=== PATIENT | female | born 1945 | race Caucasian/White ===

== ENCOUNTER → 2018-07-28 | Outpatient (CLI) | payer MEDICARE ==
--- NOTE | 2018-07-29 13:38 | MM ---
Reason for exam: screening (asymptomatic). Last mammogram was performed 9 years and 4 months ago. History: Patient is postmenopausal. Physical Findings: A clinical breast exam by your physician is recommended on an annual basis and results should be correlated with mammographic findings. MG 3D Screening Mammo W/Cad Bilateral CC and MLO view(s) were taken. Prior study comparison: March 27, 2009, bilateral digital screening mammogram. The breast tissue is heterogeneously dense. This may lower the sensitivity of mammography. No suspicious abnormality on the left breast. New right medial middle depth asymmetries 7cm from nipple and 8.5cm from nipple. ASSESSMENT: Incomplete: need additional imaging evaluation, BI-RAD 0 RECOMMENDATION: Special view mammogram of the right breast. If lesion persists on supplemental views, image directed ultrasound is recommended. [facility] will attempt to contact patient to return for supplemental views and ultrasound if indicated.
== END | disposition home or self-care (01) ==
LOC: RADMAMWWP 13:34
PROVIDERS: ATTEND Family Medicine
DX: Z12.31 Encounter for screening mammogram for malignant neoplasm of breast (principal)
CPT/HCPCS: 77063; 77067

== ENCOUNTER → 2018-08-03 | Outpatient (CLI) | payer MEDICARE ==
--- NOTE | 2018-08-04 09:13 | MM ---
Reason for exam: additional evaluation requested from abnormal screening. Last mammogram was performed less than 1 month ago. History: Patient is postmenopausal. Physical Findings: Nurse did not find any significant physical abnormalities on exam. MG 3D Work Up W/Cad RT Spot compression CC and LM view(s) were taken of the right breast. Prior study comparison: July 28, 2018, bilateral MG 3d screening mammo w/cad. March 27, 2009, bilateral digital screening mammogram. There is a persistent right upper inner quadrant mass 8.5-9.5cm from nipple at 1:30. The second mass appears improved on additional views. These results were verbally communicated with the patient and result sheet given to the patient on 08/03/18. ASSESSMENT: Incomplete: need additional imaging evaluation, BI-RAD 0 RECOMMENDATION: Ultrasound of the right breast.
--- NOTE | 2018-08-04 09:20 | USB ---
Reason for exam: additional evaluation requested from abnormal screening. History: Patient is postmenopausal. US Breast Workup Limited RT Right limited breast ultrasound including focal area of concern, retroareolar and axilla demonstrates a 0.4 x 0.2 x 0.4cm lesion too small to characterize at 1 o'clock, a 0.5 x 0.2 x 0.3cm mixed, probably benign lesion at 3 o'clock and a 0.6 x 0.5 x 0.5cm solid lesion at 2 o'clock corresponds to mammographic finding, suspicious, biopsy recommended, (4C Bi-Rads). These results were verbally communicated with the patient and result sheet given to the patient on 08/03/18. ASSESSMENT: Suspicious, BI-RAD 4 RECOMMENDATION: Ultrasound core biopsy of the right breast. Called Dr. Hilton with mammographic findings and has scheduled an appointment for the patient for 08/31/18 at 2:[address] Carpenter. Biopsy scheduled for 08/22/18 at 2:00. PRELIMINARY REPORT CALLED AND FAXED TO DR. CARPENTER ON 08/03/18.
== END | disposition home or self-care (01) ==
LOC: RADMAMWWP 14:11
PROVIDERS: ATTEND Family Medicine
DX: R92.8 Other abnormal and inconclusive findings on diagnostic imaging of breast (principal)
CPT/HCPCS: 77065; 76642; G0279; 77061

== ENCOUNTER → 2018-08-22 | Day surgery (SDC) | payer MEDICARE ==
[2018-08-22 13:31] VITALS: RESP 16; BMI 76.9
[2018-08-22 15:09] VITALS: BP 132/79; PULSE 71; TEMP 98.3
--- NOTE | 2018-08-22 16:29 | USB ---
EXAMINATION TYPE: US biopsy breast VAD RT, Postbiopsy MG diagnostic mammo RT wo CAD DATE OF EXAM: 08/22/2018 CLINICAL HISTORY: 73-year-old female R92.8 ABNORMAL MAMMOGRAM. TECHNIQUE: Ultrasound guided core biopsy of the right breast. COMPARISON: 08/03/2018 and 07/28/2018 FINDINGS: The procedure of ultrasound guided core biopsy was explained to the patient. Benefits, alternatives, and risks were discussed. An informed consent was then obtained. The suspicious 1 cm lesion at the 2:00 position of the right breast was identified. The patient was placed in supine positioning for imaging and for the procedure. The overlying skin was prepped and draped in usual sterile fashion. Lidocaine buffered with bicarbonate was used as anesthetic into the skin and subcutaneous tissue up to area of concern in the 2:00 right breast. Under ultrasound guidance, a 13-gauge vacuum-assisted mammotome Elite biopsy gun was used to obtain 5 core samples. Following this, a coil clip was left in lesion. The patient tolerated the procedure well without any immediate complication. The patient was kept in the radiology department for short stay after the procedure and then discharged home in stable condition. Postprocedure mammogram shows a coil clip at the site of mammographic asymmetry on the CC view. IMPRESSION: Successful, uncomplicated ultrasound guided core biopsy of very suspicious area of concern in the 2:00 right breast, full pathology results to follow. If results are benign, surgical excision may need to be considered. Pathology Results: Malignant RIGHT BREAST, NEEDLE CORE BIOPSY: Infiltrating classic type lobular carcinoma. Appropriately controlled immunohistochemical studies for E-Cadherin is negative in tumor cells with cytokeratin 7 showing good reactivity with tumor cells. ADDENDUM REPORT RIGHT BREAST NEEDLE CORE BIOPSY: Infiltrating classic type lobular carcinoma. Recommendation Surgical consult of the right breast. Definitive surgical therapy. Ammendable to needle localization. MTDD
== END ==
LOC: RADUSWWP 13:00
PROVIDERS: ATTEND Surgery
DX: C50.211 Malignant neoplasm of upper-inner quadrant of right female breast (principal); Z17.0 Estrogen receptor positive status [ER+]
CPT/HCPCS: 88305; 88342; 88341; 77065; 19083; A4648; J2001

== ENCOUNTER → 2018-09-07 | Outpatient (CLI) | payer MEDICARE ==
--- NOTE | 2018-09-08 20:20 | BMR ---
EXAMINATION TYPE: MR breast BILAT wo/w con DATE OF EXAM: 09/07/2018 COMPARISON: Right breast mammogram dated 08/03/2018 and right breast ultrasound dated 08/03/2018. Right breast ultrasound-guided biopsy dated 08/22/2018. Screening mammogram dated 07/28/2018. HISTORY: Abnormal U/S shows lesions at 1,2, and 3 O'clock of rt breast TECHNIQUE: A series of fat and water weighted images in the long and short axis views of both breasts are obtained in conjunction with dynamic contrast MRI with subtraction technique. The patient was i njected with 7.5 mL intravenous Gadavist gadolinium contrast. Three-dimensional and additional post processing imaging is created on independent workstation and reviewed during official interpretation of this study. The exam is suboptimal given patient positioning. Prior ultrasound of 08/03/2018: At the 1:00 position on the prior ultrasound there was a 0.4 x 0.2 x 0 .4 cm lesion that is too small to accurately characterize. At the 3:00 lesion there is a mixed, probably benign 0.5 x 0.2 x 0.3 cm mass. At the 2:00 location corresponding to the mammographic finding there was a 0.5 x 0.5 x 0.6 cm mass fo r which biopsy was performed. This resulted in a malignant pathology of infiltrating classic type lob ular carcinoma. FINDINGS: The breasts are composed of heterogenous fibroglandular tissue. There is mild symmetric chava kground parenchymal enhancement. There is a biopsy marker of the right breast at the 2:00 position denoting the biopsy-proven lobular carcinoma. On subtraction imaging there is focal linear nonmass enhancement associated with this biop sy marker spanning a total distance of 3.3 cm. This is seen on an oblique angle anterior laterally bu t contiguous with the biopsy marker. No suspicious mass or nodule mass enhancement are seen at the 1:00 or 3:00 positions at the site of s ubcentimeter probably benign masses seen on the prior ultrasound. These may have represented prominen t fibroglandular tissue or artifact on the prior exam. On the left there is clumped linear nonmass enhancement at the 3:00 position on postcontrast series 1 101 image 291 spanning a distance of 3.2 cm. At the posterior margin of this there is an 8mm mass. Th jose carlos all demonstrate type I kinetics however the biopsy-proven lobular carcinoma within the right devora st also demonstrates type I kinetics. No suspicious axillary, internal mammary, or intramammary adenopathy within either breast. IMPRESSION: 1. Nonmass enhancement is associated with the biopsy-proven lobular carcinoma of the right breast at the 2:00 position. This spans a total distance of 3.2 cm. 2. Linear clumped nonmass enhancement of the left breast at the 3:00 position is seen spanning a tota l distance of 3.2 cm. MRI guided biopsy would be recommended if breast conservation therapy is desire d. 3. No suspicious mass nor suspicious enhancement with the subcentimeter lesion seen on the prior ultr asound, possibly artifact on the prior ultrasound or prominent fibroglandular tissue. 4. No suspicious axillary, internal mammary or intramammary adenopathy in either breast.
== END | disposition home or self-care (01) ==
LOC: RADMRIMAIN 20:42
PROVIDERS: ATTEND Surgery
DX: C50.211 Malignant neoplasm of upper-inner quadrant of right female breast (principal); N63.20 Unspecified lump in the left breast, unspecified quadrant
CPT/HCPCS: C8937; C8908; A9585; 77049

== ENCOUNTER → 2018-09-27 | Outpatient (CLI) | payer MEDICARE ==
--- NOTE | 2018-09-27 10:52 | USB ---
Reason for exam: additional evaluation requested from prior study. History: Patient is postmenopausal and has history of breast cancer at age 73. Malignant US biopsy breast VAD RT of the right breast, August 22, 2018. Physical Findings: Nurse did not find any significant physical abnormalities on exam. US Breast Limited LT Left limited breast ultrasound including focal area of concern, retroareolar and axilla demonstrates no cystic or solid lesion seen. 3 o'clock lesion not seen that correlates with recent breast MRI. These results were verbally communicated with the patient and result sheet given to the patient on 09/27/18. ASSESSMENT: Suspicious, BI-RAD 4 RECOMMENDATION: MRI-guided biopsy of the left breast. Biopsy scheduled for 10/07/18. PRELIMINARY REPORT CALLED AND FAXED TO DR. LIMON ON 09/27/18. [facility]
== END | disposition home or self-care (01) ==
LOC: RADUSWWP 09:19
PROVIDERS: ATTEND Surgery
DX: C50.911 Malignant neoplasm of unspecified site of right female breast (principal)

== ENCOUNTER → 2018-10-10 | Day surgery (SDC) | payer MEDICARE ==
--- NOTE | 2018-10-10 11:15 | BMR ---
EXAMINATION TYPE: MR breast biopsy w/vad LEFT, MG diagnostic mammo LT w CAD DATE OF EXAM: 10/10/2018 COMPARISON: 09/07/2018 HISTORY: Nonmass enhancement on the left breast with history of recently diagnosed infiltrating lobular carcinoma within the right breast. Left breast MRI guided biopsy recommended. TECHNIQUE: Multiplanar, multisequence images of the breasts is performed for left breast biopsy without and with IV contrast, utilizing 8.5 mL intravenous Gadavist . PREPROCEDURAL CONSULTATION: Following a discussion of the risks, benefits, and alternatives of the procedure, informed consent was obtained. The patient identified herself by both her name and date and indicated that the right breast was the area of concern. Prior to the procedure, an audible timeout was done to verify patient identification, site and type of procedure. The left breast was marked prior to the procedure. PROCEDURE: The patient was placed on the MRI scanner within the breast coil with mild compression on the left breast. T1 weighted axial images were obtained before and after administration of IV contrast. The enhancing area of concern was identified. The [employer] software program was used to localize the enhancing area of concern. The patient was taken out of the scanner and the skin was sterilely prepped. 10 mL of buffered 1% lidocaine was injected subcutaneously and then into the deeper tissues. Subsequently, a trochar and sheath were advanced into the breast at the designated depth. The trochar was removed and a plastic stylet was placed into the sheath and the patient was placed back into the scanner. T1 weighted images were again obtained. The stylet tip was in good position in relation to the area of concern. The stylet was removed and the 9-guage vacuum-assisted needle was placed into the sheath. 10 cc of lidocaine with epinephrine was injected at the site of biopsy. A tissue core specimens were obtained. The biopsy needle was removed and 2 metallic markers were placed into the biopsy site. T1 weighted fat saturation images were then obtained demonstrating satisfactory location of one of the biopsy markers with migration of the second biopsy marker. The patient was then taken out of the scanner and hemostasis was achieved with manual compression. A sterile dressing was applied at the site of biopsy. The patient tolerated the procedure without difficulty. Pathology specimens were labeled with patient identifiers and then sent to the pathology department. A post biopsy mammogram demonstrates migration of one of the markers towards the skin surface on the CC view bilaterally probable 1 cm migration laterally of the second biopsy marker marked on the images. The patient experienced no complications during the procedure within the expected small postprocedural hematoma at the site of biopsy. Home-going/follow-up instructions were reviewed with the patient before she left the department. IMPRESSION: Status post MRI guided vacuum-assisted core needle biopsy of left breast mass followed by placement of tissue markers. Pathology and an addendum are pending. Pathology Results: High Risk LEFT BREAST, NEEDLE CORE BIOPSIES: Complex sclerosing lesion with features of sclerosing adenosis, papillomatous usual ductal hyperplasia and fibrocystic changes. Recommendation Surgical consult of the left breast. Excision on left treatment on the right for known breast cancer. MTDD
[2018-10-10 11:16] VITALS: BP 150/85; PULSE 76; RESP 16; TEMP 97.6
== END ==
LOC: RADMRIMAIN 07:55
PROVIDERS: ATTEND Surgery
DX: C50.911 Malignant neoplasm of unspecified site of right female breast (principal); N60.22 Fibroadenosis of left breast; N60.92 Unspecified benign mammary dysplasia of left breast
CPT/HCPCS: 88305; 77065; 19085; C8937; A4648; A9585

== ENCOUNTER 2018-10-24 06:49 | Day surgery (SDC) | payer MEDICARE ==
--- NOTE | 2018-10-23 12:57 | P.GSHP ---
History of Present Illness H&P Date: 10/23/18 Chief Complaint: Right breast cancer, abnormal left mammogram 73-year-old female known to our service. Seen in late August. Had a screening mammogram in mid July. Last mammogram 9 years ago. No family history of breast cancer. Patient without symptoms. Mammogram showed 2 areas of asymmetry right breast. Diagnostic mammogram showed a single suspicious area. Ultrasound showed a 6 mm solid lesion 2:00 right breast. Ultrasound core biopsy performed and biopsies show invasive lobular cancer ER/[place] positive HER-2/lavinia negative. Given the lobular type of adenocarcinoma an MRI was obtained. MRI showed the right-sided breast cancer to measure approximately 3.2 cm. Left breast showed a similar area at the 3 o'clock position. No adenopathy bilaterally. A second look ultrasound was obtained which was negative. MRI guided biopsy was then obtained which showed a complex sclerosing lesion left breast. Past Medical History Past Medical History: Cancer, Eye Disorder, Supraventricular Tachycardia (SVT) Additional Past Medical History / Comment(s): CURRENT: Right breast invasive lobular carcinoma; Left breast BX UNDER MRI. MACULAR degeneration History of Any Multi-Drug Resistant Organisms: None Reported Past Surgical History: Tubal Ligation Additional Past Surgical History / Comment(s): breast biopsy right breast +ve for CA,BREAST CYST ASP-BENIGN UNSURE WHICH BREAST, Past Anesthesia/Blood Transfusion Reactions: No Reported Reaction Past Psychological History: No Psychological Hx Reported Smoking Status: Never smoker Past Alcohol Use History: Occasional Past Drug Use History: None Reported - Past Family History Mother Family Medical History: No Reported History Medications and Allergies Home Medications Medication Instructions Recorded Confirmed Type Diltiazem Cd [Cardizem CD] 120 mg PO QAM 08/11/18 10/21/18 History Multivitamins, Thera [Multivitamin 1 tab PO DAILY 08/11/18 10/21/18 History (formulary)] C,E,Zinc,Copper 11/Ajcmc9a/Lut 1 each PO DAILY 09/29/18 10/21/18 History [Ocuvite Adult 50 Plus Softgel] Allergies Allergy/AdvReac Type Severity Reaction Status Date / Time No Known Allergies Allergy Verified 10/21/18 08:23 Surgical - Exam Physical exam: General: Well-developed, well-nourished HEENT: Normocephalic, sclerae nonicteric Right breast: Recent biopsy site noted, no palpable mass, no adenopathy Left breast: No masses, no adenopathy Abdomen: Nontender, nondistended Extremities: No edema Neuro: Alert and oriented Assessment and Plan (1) Breast cancer, right Narrative/Plan: 73-year-old female with invasive lobular carcinoma right breast and recent abnormal left mammogram. Clinical scenario discussed with the patient on multiple occasions by phone. At this time she and I decided to proceed with right breast lumpectomy with needle localization and sentinel lymph node biopsy with possible axillary node dissection. Simultaneously Will proceed with left breast wire localization biopsy to rule out adjacent malignancy. Risks of bleeding, infection, seroma, nerve injury, scarring, dimpling, chronic pain, possible need for additional procedures reviewed. She understands and wishes to proceed. Status: Acute Code(s): C50.911 - MALIGNANT NEOPLASM OF UNSP SITE OF RIGHT FEMALE BREAST SNOMED Code(s): 499759774
[~2018-10-24 06:49] MED LIST: DEXAMETHASONE SOD PHOSPHATE 10 MG/ML 1 ML VIAL IV ONE; LACTATED RINGERS 1,000 ML IV SCH; LIDOCAINE 1% 20 ML VIAL (10MG/ML) FOR IV START INTRADERMA PRN; ONDANSETRON 4 MG/2 ML VIAL IVP ONE; Pre Op ABX Message 1 EACH MISC MISCELLANE ONE
[2018-10-24] MEDS ORDERED: LIDOCAINE 1% INJ 10MG/ML (20 ML MDV) SQ ONE ×2 (08:52→09:07)
[2018-10-24] MEDS ORDERED: ceFAZolin 1,000 MG VIAL ONE (10:22)
[2018-10-24] MEDS ORDERED: ePHEDrine SULFATE/0.9% NACL/PF 50 MG/5 ML SYRINGE IV ONE (10:22)
[2018-10-24] MEDS ORDERED: fentaNYL (PF) 50 MCG/ML 2 ML AMP ONE (10:22)
[2018-10-24] MEDS ORDERED: LIDOCAINE 1% INJ 10MG/ML (20 ML MDV) ONE (10:22)
[2018-10-24] MEDS ORDERED: MIDAZOLAM 2 MG/2 ML VIAL ONE (10:22)
[2018-10-24] MEDS ORDERED: PROPOFOL 10 MG/ML 20 ML VIAL IV ONE (10:22)
[2018-10-24] MEDS ORDERED: SUCCINYLCHOLINE CHLORIDE 100 MG/5 ML SYR IV ONE (10:22)
[2018-10-24] MEDS ORDERED: SODIUM CHLORIDE 0.9% 50 ML with ceFAZolin 2,000 MG IV ONE ×2 (10:37)
[2018-10-24] MEDS ORDERED: METHYLENE BLUE 10 MG/ML (10 ML VIAL) MISCELLANE ONE ×2 (10:56)
[2018-10-24] MEDS ORDERED: BUPIVACAINE (PF) 0.25% 30 ML VIAL SQ ONE (10:56)
[2018-10-24] MEDS ORDERED: LACTATED RINGERS 1,000 ML IV ONE (10:59)
--- NOTE | 2018-10-24 11:10 | NM ---
EXAMINATION TYPE: NM sentinel node injection DATE OF EXAM: 10/24/2018 COMPARISON: 10/10/2018 HISTORY: Right breast cancer TECHNIQUE AND FINDINGS: The procedure of sentinel lymph node injection was explained to the patient. The benefits, alternatives, and risks were discussed. An informed consent was then obtained. Overlying skin is cleaned with sterile alcohol. Following this, 542 uCi Tc99m Tilmanocept was inject ed in the upper outer aspect of the right nipple intradermally. The patient tolerated the procedure well without any immediate complication. The patient was kept in the radiology department for short stay after the procedure and then taken to surgery for surgical p rocedure what is presumed intraoperative gamma probe will be used for sentinel lymph node detection. IMPRESSION: Right breast radiotracer injection for sentinel node localization as above.
[2018-10-24 12:45] VITALS: TEMP 97.4
[2018-10-24] MEDS ORDERED: HYDROcodone/APAP 5-325MG 1 EACH TAB PO PRN (12:51)
[2018-10-24] MEDS ORDERED: NALOXONE 0.4 MG/ML 1 ML VIAL IV PRN (12:51)
--- NOTE | 2018-10-24 12:57 | P.OP ---
Date of Procedure: 10/24/18 Procedure(s) Performed: REOPERATIVE DIAGNOSIS: Right breast cancer POSTOPERATIVE DIAGNOSIS: Same PROCEDURE: Right Breast wire localization lumpectomy with sentinel lymph node biopsy, left breast wire localization biopsy SURGEON: Jayden EBL: Minimal ANESTHESIA: General COMPLICATIONS: None OPERATIVE PROCEDURE: Patient was placed on the operating room table in the supine position. 2 mL of methylene blue was injected into the right subareolar space. The breast was then massaged for 5 minutes. Both breasts were prepped and draped in usual sterile fashion. The left side was first addressed. The patient had 2 wires entering the left breast laterally. A curvilinear incision was made. Dissection through the subcutaneous tissues took place excising the tissue around both wires and staying anterior and medial to the deeper wire. Both clips were present within the specimen. Site was inspected. No bleeding was seen. The subcutaneous tissues were closed using 3-0 Vicryl sutures. The skin was then closed using a running 4-0 Monocryl stitch. Later Steri-Strips and sterile dressings were applied. At that time the right axilla was addressed. The hot spot in the right axilla was identified. A small curvilinear incision was made using the scalpel. Dissection down through the subcutaneous tissues took place using electrocautery. Using the neoprobe I identified a total of 3 sentinel lymph nodes. One of these was blue in color. These were clinically negative. No frozen section took place. The subcutaneous tissues were closed using 3-0 Vicryl sutures. The skin was closed using 4-0 Monocryl sutures. The wire entrance site was then addressed. This was present at the 3:00 location. A horizontal incision was made adjacent to the wire entrance site. I followed the wire down into the breast tissue. An adequate lumpectomy specimen then took place around the wire. Margins of 1.5-2 cm worth attempted to be achieved. Palpation of the specimen was benign. The clip was confirmed to be within the lumpectomy specimen by radiology. The subcutaneous tissues were closed using 3-0 Vicryl sutures. The skin was closed using a running 4-0 Monocryl stitch. Steri-Strips and sterile dressings were then applied. DISPOSITION: Stable to recovery room
[2018-10-24] MEDS: HYDROmorphone 0.5 MG/0.5 ML SYRINGE IVP PRN ×4 (13:05→13:32)
--- NOTE | 2018-10-24 13:50 | MM ---
EXAMINATION TYPE: MG pre op needle loc DATE OF EXAM: 10/24/2018 COMPARISON: 10/10/2018 CLINICAL HISTORY: Bilateral needle localization requested TECHNIQUE: Needle localization with wire placement and surgical excision of area of concern in the bilateral breast. FINDINGS: The procedure of needle localization with wire placement and than surgical excision was explained to the patient. Benefits, alternatives, and risks were discussed. An informed consent was then obtained. The shortest pathway for procedure was chosen. Shortest pathway was chosen. The overlying skin was prepped and draped in usual sterile fashion. Lidocaine buffered with bicarbonate was used as anesthetic into the skin and subcutaneous tissue up to the level of area of concern. A 5 cm cm needle was used on the right. There is a 5 cm needle used on the left for the first clip and a 7 cm needle use for the second clip. It was placed via a lateral approach bilaterally under mammographic guidance. Subsequent 90 degrees mammogram show the needle to be in satisfactory position relative to the targeted area. At this point, wire was placed and the needle was withdrawn. The wire was fixed to patient's skin. Images were marked for surgeon. The patient tolerated the procedure well without any immediate complication. The patient was kept in the radiology department for short stay after the procedure and then taken to surgery for surgical excision. Surgical clips and wire are identified in specimen mammogram. The patient was kept in hospital for short stay after the procedure and then discharged home in stable condition. IMPRESSION: Successful, uncomplicated needle localization with wire placement and surgical excision of surgical clip in the bilateral breast, full pathology results to follow. Pathology Results: Malignant A. LEFT BREAST, NEEDLE LOCALIZATION EXCISION: Intraductal papilloma, margins negative. Focal atypical lobular hyperplasia (ALH). Fibrocystic changes including cysts, fibrosis, apocrine metaplasia, sclerosing adenosis and calcifications. Previous biopsy site. B. SENTINEL LYMPH NODES, RIGHT BREAST: Four lymph nodes negative for metastasis. CK7 and JIM immunoperoxidase stains are confirmatory (controls appropriate). C. RIGHT BREAST, LUMPECTOMY: Invasive lobular carcinoma adjacent to previous biopsy site, margins negative for malignancy. Tumor is focally less than 1 mm from the blue inked/anterior margin. See Surgical Pathology Cancer Case Summary and Comment. Recommendation Surgical consult of both breasts. MARY
[2018-10-24 14:09] VITALS: RESP 16
[2018-10-24 14:33] VITALS: BP 152/80; PULSE 82
[2018-10-24] MEDS ORDERED: HYDROcodone/APAP 5-325MG 1 EACH TAB PO ONE (14:37)
== END 2018-10-24 15:22 | disposition home or self-care (01) ==
LOC: OR 06:49
PROVIDERS: ATTEND Surgery
DX: C50.211 Malignant neoplasm of upper-inner quadrant of right female breast (principal); Z17.0 Estrogen receptor positive status [ER+]; N60.12 Diffuse cystic mastopathy of left breast; N60.22 Fibroadenosis of left breast; D24.2 Benign neoplasm of left breast
CPT/HCPCS: 19301; 38500; 88342; 88307; 88341; 76098 ×2; 19281; 19282; 38792; A9520; J2250; J0690; J2001; Q9968; J3010; J0330; J2704; J1170

== ENCOUNTER → 2019-01-10 | Outpatient (CLI) | payer MEDICARE ==
--- NOTE | 2019-01-10 18:08 | BD ---
EXAMINATION TYPE: Axial Bone Density DATE OF EXAM: 01/10/2019 COMPARISON: 10/05/2007 CLINICAL HISTORY: Height: 63 IN Weight: 186 LBS RISK FACTORS HISTORY OF: Active: YES Postmenopausal woman: AGE 51 MEDICATIONS: Osteoporosis Medications: NOT NOW Which medication: Fosamax How Long: TOOK FOR 2 YEARS Additional Medications: CENTRUM MULTI VIT, SVT MEDS, Additional History: BREAST CANCER WITH RADIATION AGE 73 EXAM MEASUREMENTS: Bone mineral densitometry was performed using the [employer]. Bone mineral density as measured about the Lumbar spine is: ----- L1-L4(G/cm2): 1.201 T Score Values are as follows: ----- L2: -0.3 ----- L3: 0.6 ----- L4: 0.9 ----- L1-L4: 0.2 Bone mineral density has: Increased 12.9% since study of: 10/05/2007 Bone mineral density about the R hip (g/cm2): 0.727 Bone mineral density about the L hip (g/cm2): 0.744 T Score values are as follows: -----R Neck: -2.2 -----L Neck: -2.1 -----R Total: -1.4 -----L Total: -1.2 Bone mineral density has: Decreased -1.6% since study of: 10/05/2007 IMPRESSION: Osteopenia (T Score between -2.5 and -1). There is slightly increased risk of fracture and the patient may be considered for treatment. Re-Screen 2-5 years. NOTE: T-SCORE=SD OF THE YOUNG ADULT MEAN.
== END ==
LOC: RADBDWWP 09:52
PROVIDERS: ATTEND Internal Medicine Hematology & Oncology
DX: M85.80 Other specified disorders of bone density and structure, unspecified site (principal); C50.211 Malignant neoplasm of upper-inner quadrant of right female breast; N95.1 Menopausal and female climacteric states; Z79.890 Hormone replacement therapy
CPT/HCPCS: 77080

== ENCOUNTER → 2019-08-02 | Outpatient (CLI) | payer MEDICARE ==
--- NOTE | 2019-08-09 09:14 | MM ---
Reason for exam: follow-up at short interval from prior study. Last mammogram was performed 10 months ago. History: Patient is postmenopausal, has history of breast cancer at age 73, and has history of high-risk lesion on a previous biopsy at age 73. Malignant MG pre op loc each addl RT of the right breast, October 24, 2018. High risk MG pre op needle loc LT of the left breast, October 24, 2018. Lumpectomy of the right breast, October 24, 2018. High risk MR breast biopsy w/vad LEFT of the left breast, October 10, 2018. Malignant US biopsy breast VAD RT of the right breast, August 22, 2018. Physical Findings: Nurse did not find any significant physical abnormalities on exam. MG 3D Diag Mammo W/Cad DESIREE Bilateral CC and MLO view(s) were taken. XCCL view(s) were taken of the left breast. Prior study comparison: October 10, 2018, left breast MG diagnostic mammo LT w CAD. August 22, 2018, right breast MG diagnostic mammo RT wo CAD. The breast tissue is heterogeneously dense. This may lower the sensitivity of mammography. Diffuse skin and trabecular thickening on the right. Post excisional changes on the left. Scattered benign round and punctate calcification on the right. 6 month follow up right to assess evolving post therapy change. These results were verbally communicated with the patient and result sheet given to the patient on 08/02/19. ASSESSMENT: Probably benign, BI-RAD 3 RECOMMENDATION: Follow-up diagnostic mammogram of the right breast in 6 months.
== END | disposition home or self-care (01) ==
LOC: RADMAMWWP 09:38
PROVIDERS: ATTEND Radiology Radiation Oncology
DX: C50.211 Malignant neoplasm of upper-inner quadrant of right female breast (principal); C50.411 Malignant neoplasm of upper-outer quadrant of right female breast; Z92.3 Personal history of irradiation; Z98.890 Other specified postprocedural states
CPT/HCPCS: 77066; G0279; 77062

== ENCOUNTER → 2020-02-02 | Outpatient (CLI) | payer MEDICARE ==
--- NOTE | 2020-02-06 11:15 | MM ---
Reason for exam: follow-up at short interval from prior study. Last mammogram was performed 6 months ago. History: Patient is postmenopausal, has history of breast cancer at age 73, and has history of high-risk lesion on a previous biopsy at age 73. Malignant MG pre op loc each addl RT of the right breast, October 24, 2018. High risk MG pre op needle loc LT of the left breast, October 24, 2018. Lumpectomy of the right breast, October 24, 2018. High risk MR breast biopsy w/vad LEFT of the left breast, October 10, 2018. Malignant US biopsy breast VAD RT of the right breast, August 22, 2018. Took hormonal contraceptives for 5 years. Physical Findings: Nurse did not find any significant physical abnormalities on exam. MG 3D Diag Mammo W/Cad RT CC and MLO view(s) were taken of the right breast. Prior study comparison: August 02, 2019, bilateral MG 3d diag mammo w/cad DESIREE. October 10, 2018, left breast MG diagnostic mammo LT w CAD. The breast tissue is heterogeneously dense. This may lower the sensitivity of mammography. Post surgical and post therapy change right breast. No significant new findings when compared with previous films. These results were verbally communicated with the patient and result sheet given to the patient on 02/02/20. ASSESSMENT: Benign, BI-RAD 2 RECOMMENDATION: Follow-up diagnostic mammogram of both breasts in 6 months. Back on schedule.
== END | disposition home or self-care (01) ==
LOC: RADMAMWWP 10:53
PROVIDERS: ATTEND Radiology Radiation Oncology
DX: C50.211 Malignant neoplasm of upper-inner quadrant of right female breast (principal); C50.411 Malignant neoplasm of upper-outer quadrant of right female breast; Z92.3 Personal history of irradiation; Z98.890 Other specified postprocedural states
CPT/HCPCS: 77065; G0279; 77061

== ENCOUNTER 2020-07-06 15:28 | Inpatient (IN) | payer MEDICARE ==
--- NOTE | 2020-07-06 16:11 | ED ---
SOB HPI - General Chief Complaint: Shortness of Breath Stated Complaint: COVID+ Time Seen by Provider: 07/06/20 15:50 Source: patient Mode of arrival: ambulatory Limitations: no limitations - History of Present Illness Initial Comments: Alejandrina is a 74-year-old female who presents to the emergency department today for evaluation of persistent shortness of breath, body aches, malaise which is progressively worsened over the past 10 days. Patient was diagnosed with COVID 1910 days ago. Despite taking steroids and antibiotics at home she has had no improvement in her symptoms continues to feel worse. Patient reports she so weak she can't take care of herself at home doesn't feel safe at home. - Related Data Home Medications Medication Instructions Recorded Confirmed Diltiazem Cd [Cardizem CD] 120 mg PO QAM 08/11/18 10/24/18 Multivitamins, Thera [Multivitamin 1 tab PO DAILY 08/11/18 10/24/18 (formulary)] C,E,Zinc,Copper 11/Gignz7w/Lut 1 each PO DAILY 09/29/18 10/24/18 [Ocuvite Adult 50 Plus Softgel] Previous Rx's Medication Instructions Recorded Hydrocodone/Acetaminophen [[place] 1 tab PO Q6HR PRN 3 Days #10 tab 10/24/18 5-325] Allergies Allergy/AdvReac Type Severity Reaction Status Date / Time No Known Allergies Allergy Verified 07/06/20 15:33 Review of Systems ROS Statement: Those systems with pertinent positive or pertinent negative responses have been documented in the HPI. ROS Other: All systems not noted in ROS Statement are negative. Past Medical History Past Medical History: Cancer, Eye Disorder, Supraventricular Tachycardia (SVT) Additional Past Medical History / Comment(s): CURRENT: Right breast invasive lobular carcinoma; Left breast BX UNDER MRI. MACULAR degeneration History of Any Multi-Drug Resistant Organisms: None Reported Past Surgical History: Tubal Ligation Additional Past Surgical History / Comment(s): breast biopsy right breast +ve for CA,BREAST CYST ASP-BENIGN UNSURE WHICH BREAST, Past Anesthesia/Blood Transfusion Reactions: No Reported Reaction Past Psychological History: No Psychological Hx Reported Smoking Status: Never smoker Past Alcohol Use History: Rare Past Drug Use History: None Reported - Past Family History Mother Family Medical History: No Reported History General Exam - General Exam Comments Initial Comments: Physical Exam GENERAL: Ill appearing but nontoxic Appears dehydrated HENT: Normocephalic, Atraumatic. EYES: PERRL, EOMI PULMONARY: Tachypnea CARDIOVASCULAR: RRR Warm and well perfused extremities ABDOMEN: Non-distended SKIN: No rashes or bruising : Deferred NEUROLOGIC: Alert and oriented Normal speech Normal gait MUSCULOSKELETAL: Moving all extremities with no apparent injury PSYCHIATRIC: No SI/HI Limitations: no limitations Course Vital Signs 07/06/20 07/06/20 07/06/20 15:29 15:53 16:30 Temperature 97.9 F 97.9 F Pulse Rate 88 82 Respiratory 18 18 18 Rate Blood Pressure 109/59 110/62 O2 Sat by Pulse 91 L 93 L Oximetry 07/06/20 19:19 Temperature 97.9 F Pulse Rate 80 Respiratory 18 Rate Blood Pressure 130/72 O2 Sat by Pulse 94 L Oximetry Medical Decision Making - Medical Decision Making The patient was seen and evaluated, history is obtained from patient Patient: +10 days ago, worsening symptoms today Upon arrival patient is hypoxic to 87% on room air Patient was placed on supplemental oxygen, labs were obtained Given patient's oxygen requirements she is not a candidate for monoclonal antibody treatment or discharge home Vision care was discussed with Dr. Walker who accepts admission for COVID 19, hypoxia - Lab Data Result diagrams: 07/06/20 16:19 07/06/20 16:19 Lab Results 07/06/20 07/06/20 07/06/20 Range/Units 16:19 16:19 16:19 WBC 4.3 (3.8-10.6) k/uL RBC 5.43 H (3.80-5.40) m/uL Hgb 16.4 H (11.4-16.0) gm/dL Hct 47.9 H (34.0-46.0) % MCV 88.1 (80.0-100.0) fL MCH 30.2 (25.0-35.0) pg MCHC 34.3 (31.0-37.0) g/dL RDW 12.9 (11.5-15.5) % Plt Count 166 (150-450) k/uL MPV 8.0 Neutrophils % 82 % Lymphocytes % 9 % Monocytes % 7 % Eosinophils % 0 % Basophils % 1 % Neutrophils # 3.6 (1.3-7.7) k/uL Lymphocytes # 0.4 L (1.0-4.8) k/uL Monocytes # 0.3 (0-1.0) k/uL Eosinophils # 0.0 (0-0.7) k/uL Basophils # 0.0 (0-0.2) k/uL PT 9.7 (9.0-12.0) sec INR 0.9 (<1.2) APTT 22.3 (22.0-30.0) sec D-Dimer 0.52 (<0.60) mg/L FEU Sodium 133 L (137-145) mmol/L Potassium 4.6 (3.5-5.1) mmol/L Chloride 99 (98-107) mmol/L Carbon Dioxide 26 (22-30) mmol/L Anion Gap 8 mmol/L BUN 16 (7-17) mg/dL Creatinine 0.81 (0.52-1.04) mg/dL Est GFR (CKD-EPI)AfAm 84 (>60 ml/min/1.73 sqM) Est GFR (CKD-EPI)NonAf 73 (>60 ml/min/1.73 sqM) Glucose 122 H (74-99) mg/dL Plasma Lactic Acid Shayne (0.7-2.0) mmol/L Calcium 8.4 (8.4-10.2) mg/dL Magnesium 2.4 H (1.6-2.3) mg/dL Total Bilirubin 0.4 (0.2-1.3) mg/dL AST 50 H (14-36) U/L ALT 34 (4-34) U/L Alkaline Phosphatase 96 (38-126) U/L Creatine Kinase 166 H (30-135) U/L C-Reactive Protein 70.1 H (<10.0) mg/L Total Protein 6.4 (6.3-8.2) g/dL Albumin 3.8 (3.5-5.0) g/dL 07/06/20 Range/Units 16:19 WBC (3.8-10.6) k/uL RBC (3.80-5.40) m/uL Hgb (11.4-16.0) gm/dL Hct (34.0-46.0) % MCV (80.0-100.0) fL MCH (25.0-35.0) pg MCHC (31.0-37.0) g/dL RDW (11.5-15.5) % Plt Count (150-450) k/uL MPV Neutrophils % % Lymphocytes % % Monocytes % % Eosinophils % % Basophils % % Neutrophils # (1.3-7.7) k/uL Lymphocytes # (1.0-4.8) k/uL Monocytes # (0-1.0) k/uL Eosinophils # (0-0.7) k/uL Basophils # (0-0.2) k/uL PT (9.0-12.0) sec INR (<1.2) APTT (22.0-30.0) sec D-Dimer (<0.60) mg/L FEU Sodium (137-145) mmol/L Potassium (3.5-5.1) mmol/L Chloride (98-107) mmol/L Carbon Dioxide (22-30) mmol/L Anion Gap mmol/L BUN (7-17) mg/dL Creatinine (0.52-1.04) mg/dL Est GFR (CKD-EPI)AfAm (>60 ml/min/1.73 sqM) Est GFR (CKD-EPI)NonAf (>60 ml/min/1.73 sqM) Glucose (74-99) mg/dL Plasma Lactic Acid Shayne 1.1 (0.7-2.0) mmol/L Calcium (8.4-10.2) mg/dL Magnesium (1.6-2.3) mg/dL Total Bilirubin (0.2-1.3) mg/dL AST (14-36) U/L ALT (4-34) U/L Alkaline Phosphatase (38-126) U/L Creatine Kinase (30-135) U/L C-Reactive Protein (<10.0) mg/L Total Protein (6.3-8.2) g/dL Albumin (3.5-5.0) g/dL - EKG Data -: EKG Interpreted by Me EKG Comments: EKG was obtained due to complaint shortness breath, EKG was obtained 1624, rate is 81 rhythm is sinus there is normal axis, normal intervals, [place] 146, QRS 80, QTC 415 there are no acute ST elevations or depressions or evidence of ischemia, infarction or arrhythmia. Disposition Clinical Impression: COVID-19, Hypoxia Disposition: ADMITTED IP TO THIS HOSP Condition: Stable Is patient prescribed a controlled substance at d/c from ED?: No Referrals: Tena Carpenter MD [Primary Care Provider] - 1-2 days
[2020-07-06 16:27] LABS: Basophils % (A) 1 %; Eosinophils % (A) 0 %; HCT 47.9 % (34.0-46.0); HGB 16.4 gm/dL (11.4-16.0); Lymphocytes # (A) 0.4 k/uL (1.0-4.8); Lymphocytes % (A) 9 %; MCH 30.2 pg (25.0-35.0); MCHC 34.3 g/dL (31.0-37.0); MCV 88.1 fL (80.0-100.0); Monocytes # (A) 0.3 k/uL (0-1.0); Monocytes % (A) 7 %; Neutrophils # (A) 3.6 k/uL (1.3-7.7); Neutrophils % (A) 82 %; Platelet Count 166 k/uL (150-450); RBC 5.43 m/uL (3.80-5.40); RDW 12.9 % (11.5-15.5); WBC 4.3 k/uL (3.8-10.6)
[2020-07-06 16:41] LABS: Albumin 3.8 g/dL (3.5-5.0); C Reactive Protein 70.1 mg/L (<10.0); Calcium 8.4 mg/dL (8.4-10.2); Magnesium 2.4 mg/dL (1.6-2.3); Potassium 4.6 mmol/L (3.5-5.1); Total Bilirubin 0.4 mg/dL (0.2-1.3); Total Protein 6.4 g/dL (6.3-8.2)
[2020-07-06 16:42] LABS: D-Dimer 0.52 mg/L FEU (<0.60); INR 0.9 (<1.2); Partial Thromboplastin Time 22.3 sec (22.0-30.0); Prothrombin Time 9.7 sec (9.0-12.0)
--- NOTE | 2020-07-06 17:43 | XR ---
EXAMINATION TYPE: XR chest 1V portable DATE OF EXAM: 07/06/2020 COMPARISON: NONE HISTORY: Shortness of breath and Covid positive. TECHNIQUE: Single frontal view of the chest is obtained. FINDINGS: There are diffuse moderate patchy groundglass opacities predominantly in the mid to lower lungs, greater on the right. No pleural effusion, or pneumothorax seen. The cardiac silhouette size is enlarged. The osseous structures are intact. IMPRESSION: Bilateral infiltrates.
[2020-07-06] MEDS ORDERED: NALOXONE 0.4 MG/ML 1 ML VIAL IV PRN (20:04)
[2020-07-06] MEDS: DEXAMETHASONE SOD PHOSPHATE 10 MG/ML 1 ML VIAL IV SCH (21:34)
[2020-07-06] MEDS: ENOXAPARIN 40 MG/0.4 ML SYRINGE SQ SCH (21:34)
[2020-07-06] MEDS: SODIUM CHLORIDE 0.45% 1,000 ML IV SCH (21:34)
[2020-07-07] MEDS: MELATONIN 3 MG TABLET PO SCH ×2 (00:50→21:37)
--- NOTE | 2020-07-07 09:09 | P.HPIM ---
History of Present Illness This is a pleasant 74 results female with past medical history of supraventricular tachycardia, right breast invasive lobular carcinoma status post radiotherapy last dose on January 2019. No history of chemotherapy. This patient of Dr. Madsen about Patient was recently diagnosed with, with 10 days ago. When she was diagnosed by her PCP Dr. Tena Melo's office, that time she was complaining of from headache, fever and coughing with fatigue She is getting worse with exertional dyspnea and nausea and fatigue. Loss of smell and taste. She denies abdominal pain or diarrhea. No vomiting. Serena no urinary complaints.ls are stable, except for hypoxia with oxygen saturation of 91 on room air and 94% on 4 L oxygen via nasal cannula. CBC, INR and BMP are unremarkable. D-dimer is -0.5. Sodium is moderately low at 133. Liver enzymes are not elevated. Bilirubin 0.4. 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 EKG showed normal sinus rhythm at 81, with no significant ST-T changes Chest x-ray showing bilateral diffuse patchy ground glass infiltrates in the bed of the lower lungs, greater on the right side In the emergency room patient was started on dexamethasone 6 mg, Lovenox 40 mg twice a day Review of Systems -CONSTITUTIONAL: As above HEENT: No recent visual problems or hearing problems. Denied any sore throat. CARDIOVASCULAR: No orthopnea, PND, no palpitations, no syncope. PULMONARY: No chest wall tenderness, no hemoptysis. GASTROINTESTINAL: No diarrhea, no nausea, no vomiting, no abdominal pain. Normoactive bowel sounds. NEUROLOGICAL: No headaches, no weakness, no numbness. HEMATOLOGICAL: Denies any bleeding or petechiae. GENITOURINARY: Denies any burning micturition, frequency, or urgency. MUSCULOSKELETAL/RHEUMATOLOGICAL: Denies any joint pain, swelling, or any muscle pain. ENDOCRINE: Denies any polyuria or polydipsia. Past Medical History Past Medical History: Cancer, Eye Disorder, Supraventricular Tachycardia (SVT) Additional Past Medical History / Comment(s): CURRENT: Right breast invasive lobular carcinoma; Left breast BX UNDER MRI. MACULAR degeneration History of Any Multi-Drug Resistant Organisms: None Reported Past Surgical History: Tubal Ligation Additional Past Surgical History / Comment(s): breast biopsy right breast +ve for CA,BREAST CYST ASP-BENIGN UNSURE WHICH BREAST, Past Anesthesia/Blood Transfusion Reactions: No Reported Reaction Past Psychological History: No Psychological Hx Reported Smoking Status: Never smoker Past Alcohol Use History: Rare Past Drug Use History: None Reported - Past Family History Mother Family Medical History: No Reported History Medications and Allergies Home Medications Medication Instructions Recorded Confirmed Type Diltiazem Cd [Cardizem CD] 120 mg PO QAM 08/11/18 07/06/20 History Multivitamins, Thera [Multivitamin 1 tab PO DAILY 08/11/18 07/06/20 History (formulary)] Cholecalciferol [Vitamin D3 (25 25 mcg PO DAILY 07/06/20 07/06/20 History Mcg = 1000 Iu)] Vit C/E/Zn/Coppr/Lutein/Zeaxan 1 cap PO DAILY 07/06/20 07/06/20 History [Preservision Areds 2 Softgel] Vitamin B Complex 1 cap PO DAILY 07/06/20 07/06/20 History Zinc 50 mg PO DAILY 07/06/20 07/06/20 History Allergies Allergy/AdvReac Type Severity Reaction Status Date / Time ondansetron [From Zofran] Allergy Face/Skin Verified 07/06/20 20:37 burning Physical Exam Vitals: Vital Signs Temp Pulse Resp BP Pulse Ox 07/07/20 05:54 98.3 F 75 20 131/64 89 L 07/07/20 01:29 72 16 110/54 91 L 07/06/20 23:00 79 18 122/61 91 L 07/06/20 20:55 92 L 07/06/20 19:19 97.9 F 80 18 130/72 94 L 07/06/20 16:30 97.9 F 82 18 110/62 93 L 07/06/20 15:53 18 07/06/20 15:29 97.9 F 88 18 109/59 91 L Intake and Output 07/06/20 07/07/20 07/07/20 22:59 06:59 14:59 Other: Weight 90.718 kg GENERAL: The patient is alert and oriented x3, not in any acute distress. Well developed, well nourished. HEENT: Pupils are round and equally reacting to light. EOMI. No scleral icterus. No conjunctival pallor. Normocephalic, atraumatic. No pharyngeal erythema. No thyromegaly. CARDIOVASCULAR: S1 and S2 present. No murmurs, rubs, or gallops. PULMONARY: Bilateral bronchial breath sounds; the results-, no wheezing or crackles. ABDOMEN: Soft, nontender, nondistended, normoactive bowel sounds. No palpable organomegaly. MUSCULOSKELETAL: No joint swelling or deformity. EXTREMITIES: No cyanosis, clubbing, or pedal edema. NEUROLOGICAL: Gross neurological examination did not reveal any focal deficits. SKIN: No rashes. No petechiae Results CBC & Chem 7: 07/06/20 16:19 07/06/20 16:19 Labs: Abnormal Lab Results - Last 24 Hours (Table) 07/06/20 07/06/20 07/06/20 Range/Units 16:19 16:19 20:32 RBC 5.43 H (3.80-5.40) m/uL Hgb 16.4 H (11.4-16.0) gm/dL Hct 47.9 H (34.0-46.0) % Lymphocytes # 0.4 L (1.0-4.8) k/uL Sodium 133 L (137-145) mmol/L Glucose 122 H (74-99) mg/dL Magnesium 2.4 H (1.6-2.3) mg/dL AST 50 H (14-36) U/L Creatine Kinase 166 H (30-135) U/L C-Reactive Protein 70.1 H (<10.0) mg/L Coronavirus (PCR) Detected A (Not Detectd) Assessment and Plan Assessment: Acute Bilateral covid pneumonia Acute hypoxic respiratory failure secondary to above Increase inflammatory markers History of right breast invasive lobular carcinoma History of supraventricular tachycardia Plan: This is a pleasant 74 years old female who presents with cough and pneumonia. Continue with oxygen, dexamethasone, zinc and vitamin C and Lovenox. Pulmonary consult Labs and medication were reviewed.. Continue same treatment. Continue with symptomatic treatment. Resume home medication. Monitor lytes and vitals. DVT and GI prophylaxis. Further recommendations depends on the clinical course of the patient DVT prophylaxis: Subcutaneous Lovenox GI Prophylaxis: Pepcid PT/OT: Pending Prognosis is guarded
[2020-07-07] MEDS: DEXAMETHASONE SOD PHOSPHATE 10 MG/ML 1 ML VIAL IV SCH (10:26)
[2020-07-07] MEDS: CHOLECALCIFEROL 25 MCG (1000 IU) TABLET PO SCH (10:26)
[2020-07-07] MEDS: ENOXAPARIN 40 MG/0.4 ML SYRINGE SQ SCH (10:26)
[2020-07-07] MEDS: FAMOTIDINE 20 MG TAB PO SCH (10:27)
[2020-07-07] MEDS: ASCORBIC ACID 500 MG TAB PO SCH (10:27)
[2020-07-07] MEDS: DILTIAZEM CD 120 MG CAP.ER.24H PO SCH (10:33)
[2020-07-07] MEDS: ZINC SULFATE 220 MG CAP PO SCH (10:35)
--- NOTE | 2020-07-07 14:14 | P.CNPUL ---
History of Present Illness Consult date: 07/07/20 Reason for consult: dyspnea History of present illness: Pleasant 74-year-old female patient, no history of any chronic lung disease, no history of smoking, she was hospitalized for COVID 19 related pneumonia and some shortness of breath and hypoxemia. The patient was doing well until around a week ago when she started having body aches, fever and chills and tiredness and fatigue and she lost her smell and taste. On today's ago, she started expressing some shortness of breath and cough. She came into the emergency department and a chest x-ray showed diffuse bilateral pulmonary infiltrates. She was initially placed on oxygen at 4 L and currently she is on 6 L with a pulse ox of 89-90%. Her CRP is at 17. Her LDH is still pending. Glucose is 122, d-dimer is at 0.5, lymphocyte count is at 0.4, LFTs are normal. EKG showing a normal sinus rhythm. She is currently comfortable and she is not having any specific complaints other than feeling fatigued and tired. She is able to lay down flat in bed without any major difficulties. No cardiomyopathy. No history of DVT and pulmonary embolism. She has several other family members at home infected with COVID and they have all recovered Review of Systems Constitutional: Reports chills, Reports fatigue, Reports fever, Reports weakness Eyes: denies as per HPI, denies blurred vision, denies bulging eye, denies decr eased vision, denies diplopia, denies discharge, denies dry eye, denies irritation, denies itching, denies pain, denies photophobia, denies loss of peripheral vision, denies loss of vision, denies tunnel vision/blind spots Ears: deny: decreased hearing, ear discharge, earache, tinnitus Ears, nose, mouth and throat: Reports as per HPI Breasts: absent: as per HPI, change in shape, gynecomastia, masses, nipple discharge, pain, skin changes, swelling Cardiovascular: Reports decreased exercise tolerance, Reports dyspnea on exertion Respiratory: Reports cough, Reports dyspnea Gastrointestinal: Reports as per HPI Genitourinary: Reports as per HPI Menstruation: Reports as per HPI Musculoskeletal: Reports as per HPI Musculoskeletal: absent: ankle pain, ankle stiffness, ankle swelling Integumentary: Reports as per HPI Neurological: Reports as per HPI, Reports weakness Endocrine: Reports as per HPI, Reports fatigue Hematologic/Lymphatic: Reports as per HPI Allergic/Immunologic: Reports as per HPI Past Medical History Past Medical History: Cancer, Eye Disorder, Supraventricular Tachycardia (SVT) Additional Past Medical History / Comment(s): CURRENT: Right breast invasive lobular carcinoma; Left breast BX UNDER MRI. MACULAR degeneration History of Any Multi-Drug Resistant Organisms: None Reported Past Surgical History: Tubal Ligation Additional Past Surgical History / Comment(s): breast biopsy right breast +ve for CA,BREAST CYST ASP-BENIGN UNSURE WHICH BREAST, Past Anesthesia/Blood Transfusion Reactions: No Reported Reaction Past Psychological History: No Psychological Hx Reported Smoking Status: Never smoker Past Alcohol Use History: Rare Past Drug Use History: None Reported - Past Family History Mother Family Medical History: No Reported History Medications and Allergies Home Medications Medication Instructions Recorded Confirmed Type Diltiazem Cd [Cardizem CD] 120 mg PO QAM 08/11/18 07/06/20 History Multivitamins, Thera [Multivitamin 1 tab PO DAILY 08/11/18 07/06/20 History (formulary)] Cholecalciferol [Vitamin D3 (25 25 mcg PO DAILY 07/06/20 07/06/20 History Mcg = 1000 Iu)] Vit C/E/Zn/Coppr/Lutein/Zeaxan 1 cap PO DAILY 07/06/20 07/06/20 History [Preservision Areds 2 Softgel] Vitamin B Complex 1 cap PO DAILY 07/06/20 07/06/20 History Zinc 50 mg PO DAILY 07/06/20 07/06/20 History Allergies Allergy/AdvReac Type Severity Reaction Status Date / Time ondansetron [From Zofran] Allergy Face/Skin Verified 07/06/20 20:37 burning Physical Exam Vitals: Vital Signs Temp Pulse Resp BP Pulse Ox 07/07/20 10:16 97.9 F 71 18 124/58 89 L 07/07/20 05:54 98.3 F 75 20 131/64 89 L 07/07/20 01:29 72 16 110/54 91 L 07/06/20 23:00 79 18 122/61 91 L 07/06/20 20:55 92 L 07/06/20 19:19 97.9 F 80 18 130/72 94 L 07/06/20 16:30 97.9 F 82 18 110/62 93 L 07/06/20 15:53 18 07/06/20 15:29 97.9 F 88 18 109/59 91 L Intake and Output 07/06/20 07/07/20 07/07/20 22:59 06:59 14:59 Other: Weight 90.718 kg The patient appeared well nourished and normally developed. Vital signs as documented. Head exam is unremarkable. No scleral icterus or corneal arcus noted. Neck is without jugular venous distension, thyromegaly, or carotid bruits. Carotid upstrokes are brisk bilaterally. Lungs are diminished breath sounds along with crackles in the lung bases bilaterally. Cardiac exam reveals the PMI to be normally sized and situated. Rhythm is regular. First and second heart sounds normal. No murmurs, rubs or gallops. Abdominal exam reveals normal bowel sounds, no masses, no organomegaly and no aortic enlargement. Extremities are nonedematous and both femoral and pedal pulses are normal.Examination of the skin revealed no evidence of significant rashes, suspicious appearing nevi or other concerning lesions.Neurologically, the patient is awake and alert and the patient does not have any focal neurological deficit. Cranial nerves are essentially intact. Results - Laboratory Findings CBC and BMP: 07/06/20 16:19 07/06/20 16:19 PT/INR, D-dimer PT 9.7 sec (9.0-12.0) 07/06/20 16:19 INR 0.9 (<1.2) 07/06/20 16:19 D-Dimer 0.52 mg/L FEU (<0.60) 07/06/20 16:19 Abnormal lab findings: Abnormal Labs 07/06/20 07/06/20 07/06/20 16:19 16:19 20:32 RBC 5.43 H Hgb 16.4 H Hct 47.9 H Lymphocytes # 0.4 L Sodium 133 L Glucose 122 H Magnesium 2.4 H AST 50 H Creatine Kinase 166 H C-Reactive Protein 70.1 H Coronavirus (PCR) Detected A - Diagnostic Findings Chest x-ray: image reviewed Assessment and Plan Plan: 1 acute bilateral Covid 19 related pneumonia. The patient symptoms started approximately a week ago. She became symptomatic on 06/30/2020 and the patient is coming in today with worsening shortness of breath and cough and hypoxemia. She checked positive and she was started on steroids. Reasonable to start this patient on REM to shorten symptoms and course of treatment. 2 acute hypoxic respiratory failure currently on 4-6 L of oxygen by nasal cannula 3 dyspnea cough secondary to above 4. Lymphopenia secondary to above 5. Breast cancer postlumpectomy followed by radiation therapy and removal maria elena tment and she is currently off the hormonal pill 6 history of SVT currently in sinus rhythm and the patient takes Cardizem Plan Supplement the patient oxygen between 4-6 L per minute and a saturation above 90% Start the patient on Decadron 6 mg by mouth on a daily basis Start the patient on Remdesivir and she falls within the window of treatment Monitor inflammatory markers D-dimer is low on the patient will be given Lovenox 40 mg subcu for DVT prophylaxis Monitor chest x-ray Admitted to the medical floor and will continue to follow and monitor progress.
[2020-07-07] MEDS ORDERED: REMDESIVIR 200 MG in SODIUM CHLORIDE 0.9% 250 ML IVPB ONE (15:00)
[2020-07-08] MEDS: SODIUM CHLORIDE 0.45% 1,000 ML IV SCH (06:08)
[2020-07-08] MEDS: ASCORBIC ACID 500 MG TAB PO SCH (08:05)
[2020-07-08] MEDS: CHOLECALCIFEROL 25 MCG (1000 IU) TABLET PO SCH (08:05)
[2020-07-08] MEDS: FAMOTIDINE 20 MG TAB PO SCH (08:05)
[2020-07-08] MEDS: ENOXAPARIN 40 MG/0.4 ML SYRINGE SQ SCH (08:05)
[2020-07-08] MEDS: ZINC SULFATE 220 MG CAP PO SCH (08:05)
[2020-07-08] MEDS: DEXAMETHASONE SOD PHOSPHATE 10 MG/ML 1 ML VIAL IV SCH (08:06)
[2020-07-08] MEDS: DILTIAZEM CD 120 MG CAP.ER.24H PO SCH (08:06)
[2020-07-08] MEDS ORDERED: guaiFENesin-DM 100-10MG/5ML 10 ML CUP PO PRN (08:22)
[2020-07-08 08:41] LABS: Basophils # (A) 0.03 X 10*3/uL (0.00-0.10); Basophils % (A) 0.3 %; Eosinophils # (A) 0 X 10*3/uL (0.04-0.35); Eosinophils % (A) 0 %; HCT 50.2 % (37.2-46.3); HGB 16.6 g/dL (12.0-15.0); Lymphocytes # (A) 0.59 X 10*3/uL (0.90-5.00); Lymphocytes % (A) 5.9 %; MCH 29.4 pg (27.0-32.0); MCHC 33.1 g/dL (32.0-37.0); Mean Platelet Volume 10.1 fL (9.5-12.2); Monocytes # (A) 1.06 X 10*3/uL (0.20-1.00); Monocytes % (A) 10.7 %; Neutrophils # (A) 8.22 X 10*3/uL (1.80-7.70); Neutrophils % (A) 82.6 %; Platelet Count 256 X 10*3/uL (140-440); RBC 5.64 X 10*6/uL (4.10-5.20); RDW 13.1 % (11.5-14.5); WBC 9.95 X 10*3/uL (4.50-10.00)
[2020-07-08 10:03] LABS: African American GFR (CKD) 84.8 (60.0-200.0); Anion Gap 7.5 mmol/L (4.00-12.00); BUN/Creat Ratio 23.75 Ratio (12.00-20.00); Calcium 8.3 mg/dL (8.7-10.3); Carbon Dioxide 26.5 mmol/L (21.6-31.8); Ferritin 671.7 ng/mL (10.0-291.0); Non-African American GFR(CKD) 73.1 (60.0-200.0); Potassium 4.4 mmol/L (3.5-5.5)
[2020-07-08] MEDS: METOCLOPRAMIDE 5 MG TAB PO SCH ×2 (11:45→17:03)
--- NOTE | 2020-07-08 13:36 | P.PN ---
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 No history of chemotherapy. This patient of Dr. Madsen about Patient was recently diagnosed with, with 10 days ago. When she was diagnosed by her PCP Dr. Tena Melo's office, that time she was complaining of from headache, fever and coughing with fatigue She is getting worse with exertional dyspnea and nausea and fatigue. Loss of smell and taste. She denies abdominal pain or diarrhea. No vomiting. Serena no urinary complaints.ls are stable, except for hypoxia with oxygen saturation of 91 on room air and 94% on 4 L oxygen via nasal cannula. CBC, INR and BMP are unremarkable. D-dimer is -0.5. Sodium is moderately low at 133. Liver enzymes are not elevated. Bilirubin 0.4. C-reactive protein is slightly elevated at 70.1 and plasma lactic acid is 1.1 Cleaning Supervisor were is detected. EKG showed normal sinus rhythm at 81, with no significant ST-T changes Chest x-ray showing bilateral diffuse patchy ground glass infiltrates in the bed of the lower lungs, greater on the right side In the emergency room patient was started on dexamethasone 6 mg, Lovenox 40 mg twice a day 07/08/2020 Patient awake, her oxygen requirements for sent today to 15 L/m. Despite decrease in her inflammatory markers for example C reactive protein 1 down from 70 down to 6, her procalcitonin is -0.04 and her d-dimer is still negative at 0.39. Pulmonary on the case and she remains on dexamethasone, zinc and vitamin C and D. Also she is on remdesivir We'll going to repeat chest x-ray Review of Systems -CONSTITUTIONAL: As above HEENT: No recent visual problems or hearing problems. Denied any sore throat. CARDIOVASCULAR: No orthopnea, PND, no palpitations, no syncope. PULMONARY: No chest wall tenderness, no hemoptysis. GASTROINTESTINAL: No diarrhea, no nausea, no vomiting, no abdominal pain. Normoactive bowel sounds. NEUROLOGICAL: No headaches, no weakness, no numbness. HEMATOLOGICAL: Denies any bleeding or petechiae. Active Medications Generic Name Dose Route Start Last Admin Trade Name Freq PRN Reason Stop Dose Admin Ascorbic Acid 1,000 mg 07/07/20 09:00 07/08/20 08:05 Ascorbic Acid 500 Mg Tab PO 1,000 mg DAILY TRISHA Administration Cholecalciferol 25 mcg 07/07/20 09:00 07/08/20 08:05 Cholecalciferol 25 Mcg (1000 Iu) Tablet PO 25 mcg DAILY RTISHA Administration Dexamethasone Sodium Phosphate 6 mg 07/06/20 20:15 07/08/20 08:06 Dexamethasone Sod Phosphate 10 Mg/Ml 1 Ml Vial IV 6 mg DAILY TRISHA Administration Diltiazem HCl 120 mg 07/07/20 09:00 07/08/20 08:06 Diltiazem Cd 120 Mg Cap.Er.24h PO Not Given QAM TRISHA Enoxaparin Sodium 40 mg 07/08/20 09:00 07/08/20 08:05 Enoxaparin 40 Mg/0.4 Ml Syringe SQ 40 mg DAILY TRISHA Administration Famotidine 40 mg 07/07/20 09:00 07/08/20 08:05 Famotidine 20 Mg Tab PO 40 mg DAILY TRISHA Administration Guaifenesin/Dextromethorphan 10 ml 07/08/20 08:22 07/08/20 11:45 Guaifenesin-Dm 100-10mg/5ml 10 Ml Cup PO 10 ml Q6H PRN Administration Cough Sodium Chloride 1,000 mls @ 20 mls/hr 07/06/20 20:15 07/08/20 06:08 Saline 0.45% IV Not Given .Q24H TRISHA Remdesivir 100 mg/ Sodium 250 mls @ 250 mls/hr 07/08/20 15:00 Chloride IVPB 07/11/20 15:59 DAILY@1500 TRISHA Melatonin 3 mg 07/06/20 23:45 07/07/20 21:37 Melatonin 3 Mg Tablet PO 3 mg HS TRISHA Administration Metoclopramide HCl 5 mg 07/08/20 12:30 07/08/20 11:45 Metoclopramide 5 Mg Tab PO 5 mg AC-TID TRISHA Administration Naloxone HCl 0.2 mg 07/06/20 20:04 Naloxone 0.4 Mg/Ml 1 Ml Vial IV Q2M PRN Opioid Reversal Zinc Sulfate 220 mg 07/07/20 09:00 07/08/20 08:05 Zinc Sulfate 220 Mg Cap PO 220 mg DAILY TRISHA Administration Objective - Vital Signs Vital signs: Vital Signs Temp 97.6 F 07/08/20 09:22 Pulse 72 07/08/20 09:22 Resp 17 07/08/20 09:22 BP 125/78 07/08/20 09:22 Pulse Ox 90 L 07/08/20 10:54 Intake & Output 07/07/20 07/08/20 07/08/20 18:59 06:59 18:59 Intake Total 250 Balance 250 Weight 90.718 kg Intake: IV 250 Remdesivir 100 mg In 250 Sodium Chloride 0.9% 250 ml @ 250 mls/hr IVPB DAILY@1500 [facility] Rx#: [id number] Other: # Voids 1 3 # Bowel Movements 1 - Exam GENERAL: The patient is alert and oriented x3, not in any acute distress. Well developed, well nourished. HEENT: Pupils are round and equally reacting to light. EOMI. No scleral icterus. No conjunctival pallor. Normocephalic, atraumatic. No pharyngeal erythema. No thyromegaly. CARDIOVASCULAR: S1 and S2 present. No murmurs, rubs, or gallops. -PULMONARY: Chest is clear to auscultation, scattered crackles bilaterally ABDOMEN: Soft, nontender, nondistended, normoactive bowel sounds. No palpable organomegaly. MUSCULOSKELETAL: No joint swelling or deformity. EXTREMITIES: No cyanosis, clubbing, or pedal edema. NEUROLOGICAL: Gross neurological examination did not reveal any focal deficits. SKIN: No rashes. no petechiae. - Labs CBC & Chem 7: 07/08/20 06:25 07/08/20 06:25 Labs: Abnormal Lab Results - Last 24 Hours (Table) 07/08/20 07/08/20 Range/Units 06:25 06:25 RBC 5.64 H (4.10-5.20) X 10*6/uL Hgb 16.6 H (12.0-15.0) g/dL Hct 50.2 H (37.2-46.3) % Immature Gran # 0.05 H (0.00-0.04) X 10*3/uL Neutrophils # 8.22 H (1.80-7.70) X 10*3/uL Lymphocytes # 0.59 L (0.90-5.00) X 10*3/uL Monocytes # 1.06 H (0.20-1.00) X 10*3/uL Eosinophils # 0 L (0.04-0.35) X 10*3/uL BUN/Creatinine Ratio 23.75 H (12.00-20.00) Ratio Glucose 145 H (70-110) mg/dL Calcium 8.3 L (8.7-10.3) mg/dL Ferritin 671.7 H (10.0-291.0) ng/mL Lactate Dehydrogenase 453 H (120-246) U/L C-Reactive Protein 6.0 H (0.0-0.8) mg/dL Assessment and Plan Assessment: Acute Bilateral covid pneumonia Acute hypoxic respiratory failure secondary to above Increase inflammatory markers History of right breast invasive lobular carcinoma History of supraventricular tachycardia Plan: This is a pleasant 74 years old female who presents with cough and pneumonia. Continue with oxygen, dexamethasone, zinc and vitamin C and Lovenox. Pulmonary consult Labs and medication were reviewed.. Continue same treatment. Continue with symptomatic treatment. Resume home medication. Monitor lytes and vitals. DVT and GI prophylaxis. Further recommendations depends on the clinical course of the patient DVT prophylaxis: Subcutaneous Lovenox GI Prophylaxis: Pepcid PT/OT: Pending Prognosis is guarded
[2020-07-08] MEDS: REMDESIVIR 100 MG in SODIUM CHLORIDE 0.9% 250 ML IVPB SCH (14:01)
--- NOTE | 2020-07-08 14:44 | XR ---
EXAMINATION TYPE: XR chest 1V DATE OF EXAM: 07/08/2020 COMPARISON: Chest x-ray 07/06/2020 HISTORY: Covid positive, shortness of breath, cough TECHNIQUE: Single frontal view of the chest is obtained. FINDINGS: Bilateral airspace disease is present. No evident pneumothorax or pleural effusion. Cardia c mediastinal silhouette is stable. Surgical clips are present in the right axilla. There are overlyi ng artifacts. There is a slight spinal curvature. IMPRESSION: Correlate for pneumonia.
--- NOTE | 2020-07-08 17:47 | P.PN ---
Subjective Progress Note Date: 07/08/20 Principal diagnosis: Pleasant 74-year-old female patient, no history of any chronic lung disease, no history of smoking, she was hospitalized for COVID 19 related pneumonia and some shortness of breath and hypoxemia. The patient was doing well until around a week ago when she started having body aches, fever and chills and tiredness and fatigue and she lost her smell and taste. On today's ago, she started expressing some shortness of breath and cough. She came into the emergency department and a chest x-ray showed diffuse bilateral pulmonary infiltrates. She was initially placed on oxygen at 4 L and currently she is on 6 L with a pulse ox of 89-90%. Her CRP is at 17. Her LDH is still pending. Glucose is 122, d-dimer is at 0.5, lymphocyte count is at 0.4, LFTs are normal. EKG showing a normal sinus rhythm. She is currently comfortable and she is not having any specific complaints other than feeling fatigued and tired. She is able to lay down flat in bed without any major difficulties. No cardiomyopathy. No history of DVT and pulmonary embolism. She has several other family members at home infected with COVID and they have all recovered. The patient is seen today 07/08/2020 in follow-up on the regular medical floor. She is currently awake, alert in no acute distress. She is on 15 L high flow nasal cannula and maintaining O2 saturations in the low 90s. This is day #2 of Remdesivir. Chest x-ray reveals bilateral airspace disease. white count 9.9. Hemoglobin 16.6. Lymphocytes 0.59. D-dimer 0.39. Sodium 137. Potassium 4.4. Creatinine 0.8. LDH 453. C-reactive protein 6.0. Pro calcitonin 0.04. She remains on Decadron, Lovenox, vitamin supplements. Objective - Vital Signs Vital signs: Vital Signs Temp 98.6 F 07/08/20 14:36 Pulse 79 07/08/20 14:36 Resp 18 07/08/20 14:36 BP 123/73 07/08/20 14:36 Pulse Ox 90 L 07/08/20 14:36 Intake & Output 07/07/20 07/08/20 07/08/20 18:59 06:59 18:59 Intake Total 250 Balance 250 Weight 90.718 kg Intake: IV 250 Remdesivir 100 mg In 250 Sodium Chloride 0.9% 250 ml @ 250 mls/hr IVPB DAILY@1500 [facility] Rx#: [id number] Other: # Voids 1 3 # Bowel Movements 1 - Exam This is a very pleasant 74-year-old female patient, appears well nourished and normally developed. Vital signs as documented. Head exam is unremarkable. No scleral icterus or corneal arcus noted. Neck is without jugular venous distension, thyromegaly, or carotid bruits. Carotid upstrokes are brisk bilaterally. Lungs are diminished breath sounds along with crackles in the lung bases bilaterally. Cardiac exam reveals the PMI to be normally sized and situated. Rhythm is regular. First and second heart sounds normal. No murmurs, rubs or gallops. Abdominal exam reveals normal bowel sounds, no masses, no organomegaly and no aortic enlargement. Extremities are nonedematous and both femoral and pedal pulses are normal.Examination of the skin revealed no evidence of significant rashes, suspicious appearing nevi or other concerning lesions.Neurologically, the patient is awake and alert and the patient does not have any focal neurological deficit. Cranial nerves are essentially intact. - Labs CBC & Chem 7: 07/08/20 06:25 07/08/20 06:25 Labs: Abnormal Lab Results - Last 24 Hours (Table) 07/08/20 07/08/20 Range/Units 06:25 06:25 RBC 5.64 H (4.10-5.20) X 10*6/uL Hgb 16.6 H (12.0-15.0) g/dL Hct 50.2 H (37.2-46.3) % Immature Gran # 0.05 H (0.00-0.04) X 10*3/uL Neutrophils # 8.22 H (1.80-7.70) X 10*3/uL Lymphocytes # 0.59 L (0.90-5.00) X 10*3/uL Monocytes # 1.06 H (0.20-1.00) X 10*3/uL Eosinophils # 0 L (0.04-0.35) X 10*3/uL BUN/Creatinine Ratio 23.75 H (12.00-20.00) Ratio Glucose 145 H (70-110) mg/dL Calcium 8.3 L (8.7-10.3) mg/dL Ferritin 671.7 H (10.0-291.0) ng/mL Lactate Dehydrogenase 453 H (120-246) U/L C-Reactive Protein 6.0 H (0.0-0.8) mg/dL Assessment and Plan Assessment: 1 acute bilateral Covid 19 related pneumonia. The patient symptoms started approximately a week ago. She became symptomatic on 06/30/2020 and the patient is coming in with worsening shortness of breath and cough and hypoxemia. She checked positive and she was started on steroids. This is day #2 of Remdesivir. Remains on Decadron, Lovenox. Oxygen requirements have gone up to 15 L high flow nasal cannula. Chest x-ray with persistent bilateral airspace disease. 2 acute hypoxic respiratory failure currently on 15 L of oxygen by nasal cannula 3 dyspnea cough secondary to above 4. Lymphopenia secondary to above 5. Breast cancer postlumpectomy followed by radiation therapy and removal treatment and she is currently off the hormonal pill 6 history of SVT currently in sinus rhythm and the patient takes Cardizem Plan The patient was seen and evaluated by Dr. Vines Currently up to 15 L high flow nasal cannula We will add Tocilizumab Continue Remdesivir, Lovenox, Decadron, vitamin supplement Titrate the FiO2 as tolerated We'll continue to follow I, the cosigning physician, performed a history & physical examination of the patient. Lungs sounds crackles in the bilateral posterior bases. Maintaining good O2 saturations in the 90s on 15 L high flow nasal cannula. I discussed the assessment and plan of care with my nurse practitioner, Deandra Morejon. I attest to the above note as dictated by her.
[2020-07-08] MEDS ORDERED: TOCILIZUMAB 400 MG in SODIUM CHLORIDE 0.9% 80 ML IV SCH (21:00)
[2020-07-08] MEDS: TOCILIZUMAB IV SCH (22:06)
[2020-07-08] MEDS: SODIUM CHLORIDE 0.9% IV SCH (22:06)
[2020-07-08] MEDS: MELATONIN 3 MG TABLET PO SCH (22:06)
[2020-07-09] MEDS ORDERED: TRIMETHOBENZAMIDE 300 MG CAP PO PRN (06:51)
[2020-07-09 07:31] LABS: C Reactive Protein 33.6 mg/L (<10.0)
[2020-07-09] MEDS: FAMOTIDINE 20 MG TAB PO SCH (08:06)
[2020-07-09] MEDS: METOCLOPRAMIDE 5 MG TAB PO SCH ×3 (08:06→16:56)
[2020-07-09] MEDS: CHOLECALCIFEROL 25 MCG (1000 IU) TABLET PO SCH (08:06)
[2020-07-09] MEDS: DILTIAZEM CD 120 MG CAP.ER.24H PO SCH (08:06)
[2020-07-09] MEDS: ASCORBIC ACID 500 MG TAB PO SCH (08:07)
[2020-07-09] MEDS: DEXAMETHASONE SOD PHOSPHATE 10 MG/ML 1 ML VIAL IV SCH (08:07)
[2020-07-09] MEDS: ENOXAPARIN 40 MG/0.4 ML SYRINGE SQ SCH (08:07)
[2020-07-09] MEDS: ZINC SULFATE 220 MG CAP PO SCH (08:07)
[2020-07-09] MEDS: TOCILIZUMAB IV SCH (08:47)
[2020-07-09] MEDS: SODIUM CHLORIDE 0.9% IV SCH (08:47)
[2020-07-09] MEDS: REMDESIVIR 100 MG in SODIUM CHLORIDE 0.9% 250 ML IVPB SCH (14:11)
--- NOTE | 2020-07-09 14:13 | P.PN ---
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 No history of chemotherapy. This patient of Dr. Madsen about Patient was recently diagnosed with, with 10 days ago. When she was diagnosed by her PCP Dr. Tena Melo's office, that time she was complaining of from headache, fever and coughing with fatigue She is getting worse with exertional dyspnea and nausea and fatigue. Loss of smell and taste. She denies abdominal pain or diarrhea. No vomiting. Serena no urinary complaints.ls are stable, except for hypoxia with oxygen saturation of 91 on room air and 94% on 4 L oxygen via nasal cannula. CBC, INR and BMP are unremarkable. D-dimer is -0.5. Sodium is moderately low at 133. Liver enzymes are not elevated. Bilirubin 0.4. C-reactive protein is slightly elevated at 70.1 and plasma lactic acid is 1.1 Cushion Maker were is detected. EKG showed normal sinus rhythm at 81, with no significant ST-T changes Chest x-ray showing bilateral diffuse patchy ground glass infiltrates in the bed of the lower lungs, greater on the right side In the emergency room patient was started on dexamethasone 6 mg, Lovenox 40 mg twice a day 07/08/2020 Patient awake, her oxygen requirements for sent today to 15 L/m. Despite decrease in her inflammatory markers for example C reactive protein 1 down from 70 down to 6, her procalcitonin is -0.04 and her d-dimer is still negative at 0.39. Pulmonary on the case and she remains on dexamethasone, zinc and vitamin C and D. Also she is on remdesivir We'll going to repeat chest x-ray 07/09/2020 Patient still on high dose of oxygen of 15 L/m via nasal cannula, patient has some subjective improvement in her breathing however it's not significant. Her inflammatory markers [place] [address] and C- reactive protein up to 33. D-dimer still negative at 0.45 Pulmonary team on the case Patient remains on zinc, vitamin C, vitamin D and dexamethasone 6 mg. This is a second dose of remdesivir Review of Systems -CONSTITUTIONAL: As above HEENT: No recent visual problems or hearing problems. Denied any sore throat. CARDIOVASCULAR: No orthopnea, PND, no palpitations, no syncope. PULMONARY: No chest wall tenderness, no hemoptysis. GASTROINTESTINAL: No diarrhea, no nausea, no vomiting, no abdominal pain. Normoactive bowel sounds. NEUROLOGICAL: No headaches, no weakness, no numbness. HEMATOLOGICAL: Denies any bleeding or petechiae. Active Medications Generic Name Dose Route Start Last Admin Trade Name Freq PRN Reason Stop Dose Admin Ascorbic Acid 1,000 mg 07/07/20 09:00 07/09/20 08:07 Ascorbic Acid 500 Mg Tab PO 1,000 mg DAILY TRISHA Administration Cholecalciferol 25 mcg 07/07/20 09:00 07/09/20 08:06 Cholecalciferol 25 Mcg (1000 Iu) Tablet PO 25 mcg DAILY TRISHA Administration Dexamethasone Sodium Phosphate 6 mg 07/06/20 20:15 07/09/20 08:07 Dexamethasone Sod Phosphate 10 Mg/Ml 1 Ml Vial IV 6 mg DAILY TRISHA Administration Diltiazem HCl 120 mg 07/07/20 09:00 07/09/20 08:06 Diltiazem Cd 120 Mg Cap.Er.24h PO 120 mg QAM TRISHA Administration Enoxaparin Sodium 40 mg 07/08/20 09:00 07/09/20 08:07 Enoxaparin 40 Mg/0.4 Ml Syringe SQ 40 mg DAILY TRISHA Administration Famotidine 40 mg 07/07/20 09:00 07/09/20 08:06 Famotidine 20 Mg Tab PO 40 mg DAILY TRISHA Administration Guaifenesin/Dextromethorphan 10 ml 07/08/20 08:22 07/08/20 11:45 Guaifenesin-Dm 100-10mg/5ml 10 Ml Cup PO 10 ml Q6H PRN Administration Cough Remdesivir 100 mg/ Sodium 250 mls @ 250 mls/hr 07/08/20 15:00 07/08/20 14:01 Chloride IVPB 07/11/20 15:59 250 mls/hr DAILY@1500 TRISHA Administration Melatonin 3 mg 07/06/20 23:45 07/08/20 22:06 Melatonin 3 Mg Tablet PO 3 mg HS TRISHA Administration Metoclopramide HCl 5 mg 07/08/20 12:30 07/09/20 11:30 Metoclopramide 5 Mg Tab PO 5 mg AC-TID TRISHA Administration Naloxone HCl 0.2 mg 07/06/20 20:04 Naloxone 0.4 Mg/Ml 1 Ml Vial IV Q2M PRN Opioid Reversal Trimethobenzamide HCl 300 mg 07/09/20 06:51 Trimethobenzamide 300 Mg Cap PO QID PRN Nausea And Vomiting Zinc Sulfate 220 mg 07/07/20 09:00 07/09/20 08:07 Zinc Sulfate 220 Mg Cap PO 220 mg DAILY TRISHA Administration Objective - Vital Signs Vital signs: Vital Signs Temp 97.9 F 07/09/20 08:44 Pulse 73 07/09/20 08:44 Resp 18 07/09/20 08:44 BP 147/78 07/09/20 08:44 Pulse Ox 92 L 07/09/20 09:38 Intake & Output 07/08/20 07/09/20 07/09/20 18:59 06:59 18:59 Intake Total 250 330 Balance 250 330 Intake: IV 250 250 Remdesivir 100 mg In 250 250 Sodium Chloride 0.9% 250 ml @ 250 mls/hr IVPB DAILY@1500 [facility] Rx#: [id number] Intake, IV Titration 80 Amount Tocilizumab 360 mg In 80 Sodium Chloride 0.9% 80 ml @ 100 mls/hr IV BID [facility] Rx#:[id number] Other: Voiding Method Bedside Commode # Bowel Movements 1 - Exam GENERAL: The patient is alert and oriented x3, not in any acute distress. Well developed, well nourished. HEENT: Pupils are round and equally reacting to light. EOMI. No scleral icterus. No conjunctival pallor. Normocephalic, atraumatic. No pharyngeal erythema. No thyromegaly. CARDIOVASCULAR: S1 and S2 present. No murmurs, rubs, or gallops. -PULMONARY: Chest is clear to auscultation, scattered crackles bilaterally ABDOMEN: Soft, nontender, nondistended, normoactive bowel sounds. No palpable organomegaly. MUSCULOSKELETAL: No joint swelling or deformity. EXTREMITIES: No cyanosis, clubbing, or pedal edema. NEUROLOGICAL: Gross neurological examination did not reveal any focal deficits. SKIN: No rashes. no petechiae. - Labs CBC & Chem 7: 07/08/20 06:25 07/08/20 06:25 Labs: Abnormal Lab Results - Last 24 Hours (Table) 07/09/20 Range/Units 06:19 Lactate Dehydrogenase 1335 H (313-618) U/L C-Reactive Protein 33.6 H (<10.0) mg/L Assessment and Plan Assessment: Acute Bilateral covid pneumonia Acute hypoxic respiratory failure secondary to above Increase inflammatory markers History of right breast invasive lobular carcinoma History of supraventricular tachycardia Plan: This is a pleasant 74 years old female who presents with cough and pneumonia. Continue with oxygen, dexamethasone, zinc and vitamin C and Lovenox. Pulmonary consult Labs and medication were reviewed.. Continue same treatment. Continue with symptomatic treatment. Resume home medication. Monitor lytes and vitals. DVT and GI prophylaxis. Further recommendations depends on the clinical course of the patient DVT prophylaxis: Subcutaneous Lovenox GI Prophylaxis: Pepcid PT/OT: Pending Prognosis is guarded
--- NOTE | 2020-07-09 18:17 | P.PN ---
Subjective Progress Note Date: 07/09/20 Principal diagnosis: Pleasant 74-year-old female patient, no history of any chronic lung disease, no history of smoking, she was hospitalized for COVID 19 related pneumonia and some shortness of breath and hypoxemia. The patient was doing well until around a week ago when she started having body aches, fever and chills and tiredness and fatigue and she lost her smell and taste. On today's ago, she started expressing some shortness of breath and cough. She came into the emergency department and a chest x-ray showed diffuse bilateral pulmonary infiltrates. She was initially placed on oxygen at 4 L and currently she is on 6 L with a pulse ox of 89-90%. Her CRP is at 17. Her LDH is still pending. Glucose is 122, d-dimer is at 0.5, lymphocyte count is at 0.4, LFTs are normal. EKG showing a normal sinus rhythm. She is currently comfortable and she is not having any specific complaints other than feeling fatigued and tired. She is able to lay down flat in bed without any major difficulties. No cardiomyopathy. No history of DVT and pulmonary embolism. She has several other family members at home infected with COVID and they have all recovered. The patient is seen today 07/08/2020 in follow-up on the regular medical floor. She is currently awake, alert in no acute distress. She is on 15 L high flow nasal cannula and maintaining O2 saturations in the low 90s. This is day #2 of Remdesivir. Chest x-ray reveals bilateral airspace disease. white count 9.9. Hemoglobin 16.6. Lymphocytes 0.59. D-dimer 0.39. Sodium 137. Potassium 4.4. Creatinine 0.8. LDH 453. C-reactive protein 6.0. Pro calcitonin 0.04. She remains on Decadron, Lovenox, vitamin supplements. The patient is seen today 07/09/2020 in follow-up on the regular medical floor. She is awake and alert in no acute distress. She is maintaining O2 saturations in the low 90s on 15 L high flow nasal cannula. She did receive tocilizumab. This is day #3 of Remdesivir. She remains on Decadron, Lovenox, vitamin supplements. D-dimer 0.45. LDH 1335. C-reactive protein 30.6. Objective - Vital Signs Vital signs: Vital Signs Temp 97.6 F 07/09/20 14:07 Pulse 75 07/09/20 14:07 Resp 18 07/09/20 14:07 BP 100/56 07/09/20 14:07 Pulse Ox 91 L 07/09/20 14:07 Intake & Output 07/08/20 07/09/20 07/09/20 18:59 06:59 18:59 Intake Total 250 330 Balance 250 330 Intake: IV 250 250 Remdesivir 100 mg In 250 250 Sodium Chloride 0.9% 250 ml @ 250 mls/hr IVPB DAILY@1500 [facility] Rx#: [id number] Intake, IV Titration 80 Amount Tocilizumab 360 mg In 80 Sodium Chloride 0.9% 80 ml @ 100 mls/hr IV BID [facility] Rx#:[id number] Other: Voiding Method Bedside Commode # Bowel Movements 1 - Exam This is a very pleasant 74-year-old female patient, appears well nourished and normally developed. On 15 L high flow nasal cannula. Vital signs as documented. Head exam is unremarkable. No scleral icterus or corneal arcus noted. Neck is without jugular venous distension, thyromegaly, or carotid bruits. Carotid upstrokes are brisk bilaterally. Lungs are diminished breath sounds along with crackles in the lung bases bilaterally. Cardiac exam reveals the PMI to be normally sized and situated. Rhythm is regular. First and second heart sounds normal. No murmurs, rubs or gallops. Abdominal exam reveals normal bowel sounds, no masses, no organomegaly and no aortic enlargement. Extremities are nonedematous and both femoral and pedal pulses are normal.Examination of the skin revealed no evidence of significant rashes, suspicious appearing nevi or other concerning lesions.Neurologically, the patient is awake and alert and the patient does not have any focal neurological deficit. Cranial nerves are essentially intact. - Labs CBC & Chem 7: 07/08/20 06:25 07/08/20 06:25 Labs: Abnormal Lab Results - Last 24 Hours (Table) 07/09/20 Range/Units 06:19 Lactate Dehydrogenase 1335 H (313-618) U/L C-Reactive Protein 33.6 H (<10.0) mg/L Assessment and Plan Assessment: 1 Acute bilateral Covid 19 related pneumonia. The patient symptoms started approximately a week ago. She became symptomatic on 06/30/2020 and the patient is coming in with worsening shortness of breath and cough and hypoxemia. She checked positive and she was started on steroids. This is day #3 of Remdesivir. Remains on Decadron, Lovenox. Oxygen requirements remain at 15 L high flow nasal cannula. Chest x-ray with persistent bilateral airspace disease. 2 Acute hypoxic respiratory failure currently on 15 L of oxygen by nasal cannula 3 Dyspnea cough secondary to above 4 Lymphopenia secondary to above 5 Breast cancer postlumpectomy followed by radiation therapy and removal treatment and she is currently off the hormonal pill 6 history of SVT currently in sinus rhythm and the patient takes Cardizem Plan The patient was seen and evaluated by Dr. Vines Currently up to 15 L high flow nasal cannula We will add Tocilizumab Continue Remdesivir, Lovenox, Decadron, vitamin supplement Titrate the FiO2 as tolerated We'll continue to follow I, the cosigning physician, performed a history & physical examination of the patient. Lungs sounds crackles in the bilateral posterior bases. Maintaining good O2 saturations in the 90s on 15 L high flow nasal cannula. I discussed the assessment and plan of care with my nurse practitioner, Deandra Morejon. I attest to the above note as dictated by her.
[2020-07-09] MEDS: MELATONIN 3 MG TABLET PO SCH (21:11)
[2020-07-10] MEDS: FAMOTIDINE 20 MG TAB PO SCH (07:17)
[2020-07-10] MEDS: ASCORBIC ACID 500 MG TAB PO SCH (07:17)
[2020-07-10] MEDS: ZINC SULFATE 220 MG CAP PO SCH (07:17)
[2020-07-10] MEDS: METOCLOPRAMIDE 5 MG TAB PO SCH ×3 (07:18→16:28)
[2020-07-10] MEDS: CHOLECALCIFEROL 25 MCG (1000 IU) TABLET PO SCH (07:18)
[2020-07-10] MEDS: DILTIAZEM CD 120 MG CAP.ER.24H PO SCH (07:19)
[2020-07-10] MEDS: DEXAMETHASONE SOD PHOSPHATE 10 MG/ML 1 ML VIAL IV SCH (07:19)
[2020-07-10] MEDS: ENOXAPARIN 40 MG/0.4 ML SYRINGE SQ SCH (07:19)
--- NOTE | 2020-07-10 14:29 | P.PN ---
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 No history of chemotherapy. This patient of Dr. Madsen about Patient was recently diagnosed with, with 10 days ago. When she was diagnosed by her PCP Dr. Tena Melo's office, that time she was complaining of from headache, fever and coughing with fatigue She is getting worse with exertional dyspnea and nausea and fatigue. Loss of smell and taste. She denies abdominal pain or diarrhea. No vomiting. Serena no urinary complaints.ls are stable, except for hypoxia with oxygen saturation of 91 on room air and 94% on 4 L oxygen via nasal cannula. CBC, INR and BMP are unremarkable. D-dimer is -0.5. Sodium is moderately low at 133. Liver enzymes are not elevated. Bilirubin 0.4. C-reactive protein is slightly elevated at 70.1 and plasma lactic acid is 1.1 Pediatrician were is detected. EKG showed normal sinus rhythm at 81, with no significant ST-T changes Chest x-ray showing bilateral diffuse patchy ground glass infiltrates in the bed of the lower lungs, greater on the right side In the emergency room patient was started on dexamethasone 6 mg, Lovenox 40 mg twice a day 07/08/2020 Patient awake, her oxygen requirements for sent today to 15 L/m. Despite decrease in her inflammatory markers for example C reactive protein 1 down from 70 down to 6, her procalcitonin is -0.04 and her d-dimer is still negative at 0.39. Pulmonary on the case and she remains on dexamethasone, zinc and vitamin C and D. Also she is on remdesivir We'll going to repeat chest x-ray 07/09/2020 Patient still on high dose of oxygen of 15 L/m via nasal cannula, patient has some subjective improvement in her breathing however it's not significant. Her inflammatory [place] [address] and C- reactive protein up to 33. D-dimer still negative at 0.45 Pulmonary team on the case Patient remains on zinc, vitamin C, vitamin D and dexamethasone 6 mg. This is a second dose of remdesivir 07/10/2020 Patient remains on 15 L/m of oxygen, although she has no worsening dyspnea, she is mildly tachypneic, she stuck and freely. No diarrhea. Her cuff is minimal. Her lactate dehydrogenase is trending down to 495. She is also on dexamethasone, tomorrow is her last day of remdesivir , patient may benefit from Tociluzomab and we will discuss with pulmonary team about it. Check inflammatory markers and chest x-ray tomorrow Review of Systems -CONSTITUTIONAL: As above HEENT: No recent visual problems or hearing problems. Denied any sore throat. CARDIOVASCULAR: No orthopnea, PND, no palpitations, no syncope. PULMONARY: No chest wall tenderness, no hemoptysis. GASTROINTESTINAL: No diarrhea, no nausea, no vomiting, no abdominal pain. Normoactive bowel sounds. NEUROLOGICAL: No headaches, no weakness, no numbness. HEMATOLOGICAL: Denies any bleeding or petechiae. Active Medications Generic Name Dose Route Start Last Admin Trade Name Freq PRN Reason Stop Dose Admin Ascorbic Acid 1,000 mg 07/07/20 09:00 07/10/20 07:17 Ascorbic Acid 500 Mg Tab PO 1,000 mg DAILY [facility] Administration Cholecalciferol 25 mcg 07/07/20 09:00 07/10/20 07:18 Cholecalciferol 25 Mcg (1000 Iu) Tablet PO 25 mcg DAILY [facility] Administration Dexamethasone Sodium Phosphate 6 mg 07/06/20 20:15 07/10/20 07:19 Dexamethasone Sod Phosphate 10 Mg/Ml 1 Ml Vial IV 6 mg DAILY [facility] Administration Diltiazem HCl 120 mg 07/07/20 09:00 07/10/20 07:19 Diltiazem Cd 120 Mg Cap.Er.24h PO 120 mg QAM [facility] Administration Enoxaparin Sodium 40 mg 07/08/20 09:00 07/10/20 07:19 Enoxaparin 40 Mg/0.4 Ml Syringe SQ 40 mg DAILY [facility] Administration Famotidine 40 mg 07/07/20 09:00 07/10/20 07:17 Famotidine 20 Mg Tab PO 40 mg DAILY [facility] Administration Guaifenesin/Dextromethorphan 10 ml 07/08/20 08:22 07/08/20 11:45 Guaifenesin-Dm 100-10mg/5ml 10 Ml Cup PO 10 ml Q6H PRN Administration Cough Remdesivir 100 mg/ Sodium 250 mls @ 250 mls/hr 07/08/20 15:00 07/09/20 14:11 Chloride IVPB 07/11/20 15:59 250 mls/hr DAILY@1500 [facility] Administration Melatonin 3 mg 07/06/20 23:45 07/09/20 21:11 Melatonin 3 Mg Tablet PO 3 mg HS [facility] Administration Metoclopramide HCl 5 mg 07/08/20 12:30 07/10/20 11:27 Metoclopramide 5 Mg Tab PO 5 mg AC-TID [facility] Administration Naloxone HCl 0.2 mg 07/06/20 20:04 Naloxone 0.4 Mg/Ml 1 Ml Vial IV Q2M PRN Opioid Reversal Trimethobenzamide HCl 300 mg 07/09/20 06:51 Trimethobenzamide 300 Mg Cap PO QID PRN Nausea And Vomiting Zinc Sulfate 220 mg 07/07/20 09:00 07/10/20 07:17 Zinc Sulfate 220 Mg Cap PO 220 mg DAILY [facility] Administration Objective - Vital Signs Vital signs: Vital Signs Temp 97.5 F L 07/10/20 09:41 Pulse 74 07/10/20 09:41 Resp 18 07/10/20 09:41 BP 145/84 07/10/20 09:41 Pulse Ox 92 L 07/10/20 09:41 Intake & Output 07/09/20 07/10/20 07/10/20 18:59 06:59 18:59 Intake Total 330 Balance 330 Intake: IV 250 Remdesivir 100 mg In 250 Sodium Chloride 0.9% 250 ml @ 250 mls/hr IVPB DAILY@1500 [facility] Rx#: [id number] Intake, IV Titration 80 Amount Tocilizumab 360 mg In 80 Sodium Chloride 0.9% 80 ml @ 100 mls/hr IV BID [facility] Rx#:[id number] Other: Voiding Method Bedside Commode Bedside Commode # Voids 1 - Exam GENERAL: The patient is alert and oriented x3, not in any acute distress. Well developed, well nourished. HEENT: Pupils are round and equally reacting to light. EOMI. No scleral icterus. No conjunctival pallor. Normocephalic, atraumatic. No pharyngeal erythema. No thyromegaly. CARDIOVASCULAR: S1 and S2 present. No murmurs, rubs, or gallops. -PULMONARY: Chest is clear to auscultation, scattered crackles bilaterally ABDOMEN: Soft, nontender, nondistended, normoactive bowel sounds. No palpable organomegaly. MUSCULOSKELETAL: No joint swelling or deformity. EXTREMITIES: No cyanosis, clubbing, or pedal edema. NEUROLOGICAL: Gross neurological examination did not reveal any focal deficits. SKIN: No rashes. no petechiae. - Labs CBC & Chem 7: 07/08/20 06:25 07/08/20 06:25 Labs: Abnormal Lab Results - Last 24 Hours (Table) 07/10/20 Range/Units 06:18 Lactate Dehydrogenase 495 H (120-246) U/L Assessment and Plan Assessment: Acute Bilateral covid pneumonia Acute hypoxic respiratory failure secondary to above Increase inflammatory markers History of right breast invasive lobular carcinoma History of supraventricular tachycardia Plan: This is a pleasant 74 years old female who presents with cough and pneumonia. Continue with oxygen, dexamethasone, zinc and vitamin C and Lovenox. Pulmonary consult Labs and medication were reviewed.. Continue same treatment. Continue with sym ptomatic treatment. Resume home medication. Monitor lytes and vitals. DVT and GI prophylaxis. Further recommendations depends on the clinical course of the patient DVT prophylaxis: Subcutaneous Lovenox GI Prophylaxis: Pepcid PT/OT: Pending Prognosis is guarded
[2020-07-10] MEDS: REMDESIVIR 100 MG in SODIUM CHLORIDE 0.9% 250 ML IVPB SCH (14:37)
--- NOTE | 2020-07-10 18:49 | P.PN ---
Subjective Progress Note Date: 07/10/20 Principal diagnosis: Pleasant 74-year-old female patient, no history of any chronic lung disease, no history of smoking, she was hospitalized for COVID 19 related pneumonia and some shortness of breath and hypoxemia. The patient was doing well until around a week ago when she started having body aches, fever and chills and tiredness and fatigue and she lost her smell and taste. On today's ago, she started expressing some shortness of breath and cough. She came into the emergency department and a chest x-ray showed diffuse bilateral pulmonary infiltrates. She was initially placed on oxygen at 4 L and currently she is on 6 L with a pulse ox of 89-90%. Her CRP is at 17. Her LDH is still pending. Glucose is 122, d-dimer is at 0.5, lymphocyte count is at 0.4, LFTs are normal. EKG showing a normal sinus rhythm. She is currently comfortable and she is not having any specific complaints other than feeling fatigued and tired. She is able to lay down flat in bed without any major difficulties. No cardiomyopathy. No history of DVT and pulmonary embolism. She has several other family members at home infected with COVID and they have all recovered. The patient is seen today 07/08/2020 in follow-up on the regular medical floor. She is currently awake, alert in no acute distress. She is on 15 L high flow nasal cannula and maintaining O2 saturations in the low 90s. This is day #2 of Remdesivir. Chest x-ray reveals bilateral airspace disease. white count 9.9. Hemoglobin 16.6. Lymphocytes 0.59. D-dimer 0.39. Sodium 137. Potassium 4.4. Creatinine 0.8. LDH 453. C-reactive protein 6.0. Pro calcitonin 0.04. She remains on Decadron, Lovenox, vitamin supplements. The patient is seen today 07/09/2020 in follow-up on the regular medical floor. She is awake and alert in no acute distress. She is maintaining O2 saturations in the low 90s on 15 L high flow nasal cannula. She did receive tocilizumab. This is day #3 of Remdesivir. She remains on Decadron, Lovenox, vitamin supplements. D-dimer 0.45. LDH 1335. C-reactive protein 30.6. The patient is seen today 07/10/2020 in follow-up on the regular medical floor. She is currently resting comfortably in. Awake and alert in no acute distress. Better today compared to yesterday. She is still requiring 15 L high flow nasal cannula to maintain O2 saturations in the 90s. This is day #4 of her Remdesivir. She is continued on Lovenox, Decadron, vitamin supplements. D- dimer 0.48. LDH 495. Objective - Vital Signs Vital signs: Vital Signs Temp 97.8 F 07/10/20 17:40 Pulse 72 07/10/20 17:40 Resp 18 07/10/20 17:40 BP 151/77 07/10/20 17:40 Pulse Ox 94 L 07/10/20 17:40 Intake & Output 07/09/20 07/10/20 07/10/20 18:59 06:59 18:59 Intake Total 330 Balance 330 Intake: IV 250 Remdesivir 100 mg In 250 Sodium Chloride 0.9% 250 ml @ 250 mls/hr IVPB DAILY@1500 [facility] Rx#: [id number] Intake, IV Titration 80 Amount Tocilizumab 360 mg In 80 Sodium Chloride 0.9% 80 ml @ 100 mls/hr IV BID [facility] Rx#:[id number] Other: Voiding Method Bedside Commode Bedside Commode # Voids 1 - Exam This is a very pleasant 74-year-old female patient, appears well nourished and normally developed. On 15 L high flow nasal cannula. Vital signs as documented. Head exam is unremarkable. No scleral icterus or corneal arcus noted. Neck is without jugular venous distension, thyromegaly, or carotid bruits. Carotid upstrokes are brisk bilaterally. Lungs are diminished breath sounds along with crackles in the lung bases bilaterally. Cardiac exam reveals the PMI to be normally sized and situated. Rhythm is regular. First and second heart sounds normal. No murmurs, rubs or gallops. Abdominal exam reveals normal bowel sounds, no masses, no organomegaly and no aortic enlargement. Extremities are nonedematous and both femoral and pedal pulses are normal.Examination of the skin revealed no evidence of significant rashes, suspicious appearing nevi or other concerning lesions.Neurologically, the patient is awake and alert and the patient does not have any focal neurological deficit. Cranial nerves are essentially intact. - Labs CBC & Chem 7: 07/08/20 06:25 07/08/20 06:25 Labs: Abnormal Lab Results - Last 24 Hours (Table) 07/10/20 Range/Units 06:18 Lactate Dehydrogenase 495 H (120-246) U/L Assessment and Plan Assessment: 1 Acute bilateral Covid 19 related pneumonia. She became symptomatic on 06/30/2020 and the patient is coming in with worsening shortness of breath and cough and hypoxemia. 2 Acute hypoxic respiratory failure currently on 15 L of oxygen by nasal cannula 3 Dyspnea cough secondary to above 4 Lymphopenia secondary to above 5 Breast cancer postlumpectomy followed by radiation therapy and removal treatm ent and she is currently off the hormonal pill 6 history of SVT currently in sinus rhythm and the patient takes Cardizem Plan The patient was seen and evaluated by Dr. Vines Remains on Remdesivir day #4 Remains on 15 L high flow nasal cannula Continue Lovenox, Decadron, vitamin supplement Titrate the FiO2 as tolerated Chest x-ray, inflammatory markers in the a.m. We'll continue to follow I, the cosigning physician, performed a history & physical examination of the patient. Lungs sounds crackles in the bilateral posterior bases. Maintaining good O2 saturations in the 90s on 15 L high flow nasal cannula. I discussed the assessment and plan of care with my nurse practitioner, Deandra Morejon. I attest to the above note as dictated by her.
[2020-07-10 19:16] LABS: C Reactive Protein 1.4 mg/dL (0.0-0.8)
[2020-07-10] MEDS: MELATONIN 3 MG TABLET PO SCH (21:07)
[2020-07-11] MEDS: FAMOTIDINE 20 MG TAB PO SCH (07:01)
[2020-07-11] MEDS: ASCORBIC ACID 500 MG TAB PO SCH (07:01)
[2020-07-11] MEDS: ZINC SULFATE 220 MG CAP PO SCH (07:01)
[2020-07-11] MEDS: DILTIAZEM CD 120 MG CAP.ER.24H PO SCH (07:01)
[2020-07-11] MEDS: METOCLOPRAMIDE 5 MG TAB PO SCH ×3 (07:01→16:29)
[2020-07-11] MEDS: ENOXAPARIN 40 MG/0.4 ML SYRINGE SQ SCH (07:02)
[2020-07-11] MEDS: DEXAMETHASONE SOD PHOSPHATE 10 MG/ML 1 ML VIAL IV SCH (07:02)
[2020-07-11] MEDS: CHOLECALCIFEROL 25 MCG (1000 IU) TABLET PO SCH (07:02)
[2020-07-11 09:37] LABS: C Reactive Protein 11.5 mg/L (<10.0)
[2020-07-11] MEDS: ALPRAZolam 0.5 MG TAB PO PRN ×2 (10:09→21:17)
--- NOTE | 2020-07-11 10:28 | XR ---
EXAMINATION TYPE: XR chest 1V DATE OF EXAM: 07/11/2020 COMPARISON: Chest x-ray 07/08/2020 HISTORY: Abnormal chest x-ray, follow-up TECHNIQUE: Single frontal view of the chest is obtained. FINDINGS: Patchy bilateral airspace disease is again seen, there are overlying artifacts. No evident pneumothorax or pleural effusion. Cardiac mediastinal silhouette shows a similar appearance. IMPRESSION: Correlate for pneumonia.
[2020-07-11 10:49] VITALS: BMI 34.3
--- NOTE | 2020-07-11 12:30 | P.PN ---
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 No history of chemotherapy. This patient of Dr. Madsen about Patient was recently diagnosed with, with 10 days ago. When she was diagnosed by her PCP Dr. Tena Melo's office, that time she was complaining of from headache, fever and coughing with fatigue She is getting worse with exertional dyspnea and nausea and fatigue. Loss of smell and taste. She denies abdominal pain or diarrhea. No vomiting. Serena no urinary complaints.ls are stable, except for hypoxia with oxygen saturation of 91 on room air and 94% on 4 L oxygen via nasal cannula. CBC, INR and BMP are unremarkable. D-dimer is -0.5. Sodium is moderately low at 133. Liver enzymes are not elevated. Bilirubin 0.4. C-reactive protein is slightly elevated at 70.1 and plasma lactic acid is 1.1 Laboratory Manager were is detected. EKG showed normal sinus rhythm at 81, with no significant ST-T changes Chest x-ray showing bilateral diffuse patchy ground glass infiltrates in the bed of the lower lungs, greater on the right side In the emergency room patient was started on dexamethasone 6 mg, Lovenox 40 mg twice a day 07/08/2020 Patient awake, her oxygen requirements for sent today to 15 L/m. Despite decrease in her inflammatory markers for example C reactive protein 1 down from 70 down to 6, her procalcitonin is -0.04 and her d-dimer is still negative at 0.39. Pulmonary on the case and she remains on dexamethasone, zinc and vitamin C and D. Also she is on remdesivir We'll going to repeat chest x-ray 07/09/2020 Patient still on high dose of oxygen of 15 L/m via nasal cannula, patient has some subjective improvement in her breathing however it's not significant. Her inflammatory [place] [address] and C- reactive protein up to 33. D-dimer still negative at 0.45 Pulmonary team on the case Patient remains on zinc, vitamin C, vitamin D and dexamethasone 6 mg. This is a second dose of remdesivir 07/10/2020 Patient remains on 15 L/m of oxygen, although she has no worsening dyspnea, she is mildly tachypneic, she stuck and freely. No diarrhea. Her cuff is minimal. Her lactate dehydrogenase is trending down to 495. She is also on dexamethasone, tomorrow is her last day of remdesivir , patient may benefit from Tociluzomab and we will discuss with pulmonary team about it. Check inflammatory markers and chest x-ray tomorrow 07/11/2020 Patient still with dyspnea and tachypnea. She still on 15 L of oxygen with oxygen saturation at 94%. However R on through the day her oxygen requirement was able to be lowered to 11 L/m No labs from today but C-reactive protein which is still elevated 11.5 and LDH worsened to 1110. Her d-dimer is basically normal at 0.4 The chest x-ray from today, bilateral pneumonia today is last day of her dose of remdesivir She is also on dexamethasone, zinc, vitamin C, vitamin D. She is status post 1 dose of tocilizumab on 07/09 Review of Systems -CONSTITUTIONAL: As above HEENT: No recent visual problems or hearing problems. Denied any sore throat. CARDIOVASCULAR: No orthopnea, PND, no palpitations, no syncope. PULMONARY: No chest wall tenderness, no hemoptysis. GASTROINTESTINAL: No diarrhea, no nausea, no vomiting, no abdominal pain. Normoactive bowel sounds. NEUROLOGICAL: No headaches, no weakness, no numbness. HEMATOLOGICAL: Denies any bleeding or petechiae. Active Medications Generic Name Dose Route Start Last Admin Trade Name Freq PRN Reason Stop Dose Admin Alprazolam 0.5 mg 07/11/20 09:36 07/11/20 10:09 Alprazolam 0.5 Mg Tab PO 0.5 mg BID PRN Administration Anxiety Ascorbic Acid 1,000 mg 07/07/20 09:00 07/11/20 07:01 Ascorbic Acid 500 Mg Tab PO 1,000 mg DAILY TRISHA Administration Cholecalciferol 25 mcg 07/07/20 09:00 07/11/20 07:02 Cholecalciferol 25 Mcg (1000 Iu) Tablet PO 25 mcg DAILY TRISHA Administration Dexamethasone Sodium Phosphate 6 mg 07/06/20 20:15 07/11/20 07:02 Dexamethasone Sod Phosphate 10 Mg/Ml 1 Ml Vial IV 6 mg DAILY TRISHA Administration Diltiazem HCl 120 mg 07/07/20 09:00 07/11/20 07:01 Diltiazem Cd 120 Mg Cap.Er.24h PO 120 mg QAM TRISHA Administration Enoxaparin Sodium 40 mg 07/08/20 09:00 07/11/20 07:02 Enoxaparin 40 Mg/0.4 Ml Syringe SQ 40 mg DAILY TRISHA Administration Famotidine 40 mg 07/07/20 09:00 07/11/20 07:01 Famotidine 20 Mg Tab PO 40 mg DAILY TRISHA Administration Guaifenesin/Dextromethorphan 10 ml 07/08/20 08:22 07/08/20 11:45 Guaifenesin-Dm 100-10mg/5ml 10 Ml Cup PO 10 ml Q6H PRN Administration Cough Remdesivir 100 mg/ Sodium 250 mls @ 250 mls/hr 07/08/20 15:00 07/10/20 14:37 Chloride IVPB 07/11/20 15:59 250 mls/hr DAILY@1500 TRISHA Administration Melatonin 3 mg 07/06/20 23:45 07/10/20 21:07 Melatonin 3 Mg Tablet PO 3 mg HS TRISHA Administration Metoclopramide HCl 5 mg 07/08/20 12:30 07/11/20 11:25 Metoclopramide 5 Mg Tab PO 5 mg AC-TID TRISHA Administration Naloxone HCl 0.2 mg 07/06/20 20:04 Naloxone 0.4 Mg/Ml 1 Ml Vial IV Q2M PRN Opioid Reversal Trimethobenzamide HCl 300 mg 07/09/20 06:51 Trimethobenzamide 300 Mg Cap PO QID PRN Nausea And Vomiting Zinc Sulfate 220 mg 07/07/20 09:00 07/11/20 07:01 Zinc Sulfate 220 Mg Cap PO 220 mg DAILY TRISHA Administration Objective - Vital Signs Vital signs: Vital Signs Temp 97.8 F 07/11/20 09:30 Pulse 75 07/11/20 09:30 Resp 18 07/11/20 09:30 BP 122/81 07/11/20 09:30 Pulse Ox 94 L 07/11/20 11:14 Intake & Output 07/10/20 07/11/20 07/11/20 18:59 06:59 18:59 Weight 90.718 kg Other: Voiding Method Bedside Commode Bedside Commode Bedside Commode # Voids 2 - Exam GENERAL: The patient is alert and oriented x3, not in any acute distress. Well developed, well nourished. HEENT: Pupils are round and equally reacting to light. EOMI. No scleral icterus. No conjunctival pallor. Normocephalic, atraumatic. No pharyngeal erythema. No thyromegaly. CARDIOVASCULAR: S1 and S2 present. No murmurs, rubs, or gallops. -PULMONARY: Chest is clear to auscultation, scattered crackles bilaterally ABDOMEN: Soft, nontender, nondistended, normoactive bowel sounds. No palpable organomegaly. MUSCULOSKELETAL: No joint swelling or deformity. EXTREMITIES: No cyanosis, clubbing, or pedal edema. NEUROLOGICAL: Gross neurological examination did not reveal any focal deficits. SKIN: No rashes. no petechiae. - Labs CBC & Chem 7: 07/08/20 06:25 07/08/20 06:25 Labs: Abnormal Lab Results - Last 24 Hours (Table) 07/10/20 07/11/20 Range/Units 06:18 08:43 Lactate Dehydrogenase 1110 H (313-618) U/L C-Reactive Protein 1.4 H 11.5 H (0.0-0.8) mg/dL Assessment and Plan Assessment: Acute Bilateral covid pneumonia Acute hypoxic respiratory failure secondary to above Increase inflammatory markers History of right breast invasive lobular carcinoma History of supraventricular tachycardia Plan: This is a pleasant 74 years old female who presents with cough and pneumonia. Continue with oxygen, dexamethasone, zinc and vitamin C and Lovenox. Pulmonary consult Labs and medication were reviewed.. Continue same treatment. Continue with symptomatic treatment. Resume home medication. Monitor lytes and vitals. DVT and GI prophylaxis. Further recommendations depends on the clinical course of the patient DVT prophylaxis: Subcutaneous Lovenox GI Prophylaxis: Pepcid PT/OT: Pending Prognosis is guarded
[2020-07-11] MEDS: REMDESIVIR 100 MG in SODIUM CHLORIDE 0.9% 250 ML IVPB SCH (14:56)
--- NOTE | 2020-07-11 16:08 | P.PN ---
Subjective Progress Note Date: 07/11/20 Pleasant 74-year-old female patient, no history of any chronic lung disease, no history of smoking, she was hospitalized for COVID 19 related pneumonia and some shortness of breath and hypoxemia. The patient was doing well until around a week ago when she started having body aches, fever and chills and tiredness and fatigue and she lost her smell and taste. On today's ago, she started expressing some shortness of breath and cough. She came into the emergency department and a chest x-ray showed diffuse bilateral pulmonary infiltrates. She was initially placed on oxygen at 4 L and currently she is on 6 L with a pulse ox of 89-90%. Her CRP is at 17. Her LDH is still pending. Glucose is 122, d-dimer is at 0.5, lymphocyte count is at 0.4, LFTs are normal. EKG showing a normal sinus rhythm. She is currently comfortable and she is not having any specific complaints other than feeling fatigued and tired. She is able to lay down flat in bed without any major difficulties. No cardiomyopathy. No history of DVT and pulmonary embolism. She has several other family members at home infected with COVID and they have all recovered. The patient is seen today 07/08/2020 in follow-up on the regular medical floor. She is currently awake, alert in no acute distress. She is on 15 L high flow nasal cannula and maintaining O2 saturations in the low 90s. This is day #2 of Remdesivir. Chest x-ray reveals bilateral airspace disease. white count 9.9. Hemoglobin 16.6. Lymphocytes 0.59. D-dimer 0.39. Sodium 137. Potassium 4.4. Creatinine 0.8. LDH 453. C-reactive protein 6.0. Pro calcitonin 0.04. She remains on Decadron, Lovenox, vitamin supplements. The patient is seen today 07/09/2020 in follow-up on the regular medical floor. She is awake and alert in no acute distress. She is maintaining O2 saturations in the low 90s on 15 L high flow nasal cannula. She did receive tocilizumab. This is day #3 of Remdesivir. She remains on Decadron, Lovenox, vitamin supplements. D-dimer 0.45. LDH 1335. C-reactive protein 30.6. The patient is seen today 07/10/2020 in follow-up on the regular medical floor. She is currently resting comfortably in. Awake and alert in no acute distress. Better today compared to yesterday. She is still requiring 15 L high flow nasal cannula to maintain O2 saturations in the 90s. This is day #4 of her Remdesivir. She is continued on Lovenox, Decadron, vitamin supplements. D- dimer 0.48. LDH 495. The patient is seen today 07/11/2000 in follow-up on the regular medical floor. She is currently sitting up in a chair at the bedside. Awake and alert in no acute distress. She is down to 11 L high flow nasal cannula O2 saturation 94%. Her chest x-ray showing slight improvement in the bilateral patchy infiltrates. D-dimer 0.45. LDH 1110. C-reactive protein 11.5. She completed her course of Remdesivir today. Remains on Lovenox, dexamethasone, vitamin supplements. Objective - Vital Signs Vital signs: Vital Signs Temp 98.6 F 07/11/20 14:48 Pulse 76 07/11/20 14:48 Resp 18 07/11/20 14:48 BP 149/79 07/11/20 14:48 Pulse Ox 96 07/11/20 14:48 Intake & Output 07/10/20 07/11/20 07/11/20 18:59 06:59 18:59 Weight 90.718 kg Other: Voiding Method Bedside Commode Bedside Commode Bedside Commode # Voids 2 - Exam This is a very pleasant 74-year-old female patient, appears well nourished and normally developed. On 11 L high flow nasal cannula. Vital signs as documented. Head exam is unremarkable. No scleral icterus or corneal arcus noted. Neck is without jugular venous distension, thyromegaly, or carotid bruits. Carotid upstrokes are brisk bilaterally. Lungs are diminished breath sounds along with crackles in the lung bases bilaterally. Cardiac exam reveals the PMI to be normally sized and situated. Rhythm is regular. First and second heart sounds normal. No murmurs, rubs or gallops. Abdominal exam reveals normal bowel sounds, no masses, no organomegaly and no aortic enlargement. Extremities are nonedematous and both femoral and pedal pulses are normal.Examination of the skin revealed no evidence of significant rashes, suspicious appearing nevi or other concerning lesions.Neurologically, the patient is awake and alert and the patient does not have any focal neurological deficit. Cranial nerves are essentially intact. - Labs CBC & Chem 7: 07/08/20 06:25 07/08/20 06:25 Labs: Abnormal Lab Results - Last 24 Hours (Table) 07/10/20 07/11/20 Range/Units 06:18 08:43 Lactate Dehydrogenase 1110 H (313-618) U/L C-Reactive Protein 1.4 H 11.5 H (0.0-0.8) mg/dL Assessment and Plan Assessment: 1 Acute bilateral Covid 19 related pneumonia. She became symptomatic on 06/30/2020 and completed her course of Remdesivir. 2 Acute hypoxic respiratory failure currently on 11 L of oxygen by nasal cannula 3 Dyspnea cough secondary to above 4 Lymphopenia secondary to above 5 Breast cancer postlumpectomy followed by radiation therapy and removal treatment and she is currently off the hormonal pill 6 history of SVT currently in sinus rhythm and the patient takes Cardizem Plan The patient was seen and evaluated by Dr. Vines Chest x-ray and labs reviewed Received her last dose of Remdesivir today Continue Lovenox, Decadron, vitamin supplement Titrate the FiO2 as tolerated Home once down to 4-5 L per nasal cannula We'll continue to follow I, the cosigning physician, performed a history & physical examination of the patient. Lungs sounds crackles in the bilateral posterior bases. Maintaining good O2 saturations in the 90s on 11 L high flow nasal cannula. I discussed the assessment and plan of care with my nurse practitioner, Deandra Morejon. I attest to the above note as dictated by her.
[2020-07-11 17:38] LABS: Ferritin 379.3 ng/mL (10.0-291.0)
[2020-07-11] MEDS: MELATONIN 3 MG TABLET PO SCH (20:50)
[2020-07-12] MEDS: ZINC SULFATE 220 MG CAP PO SCH (07:42)
[2020-07-12] MEDS: CHOLECALCIFEROL 25 MCG (1000 IU) TABLET PO SCH (07:42)
[2020-07-12] MEDS: ASCORBIC ACID 500 MG TAB PO SCH (07:42)
[2020-07-12] MEDS: DEXAMETHASONE SOD PHOSPHATE 10 MG/ML 1 ML VIAL IV SCH (07:42)
[2020-07-12] MEDS: FAMOTIDINE 20 MG TAB PO SCH (07:42)
[2020-07-12] MEDS: ENOXAPARIN 40 MG/0.4 ML SYRINGE SQ SCH (07:42)
[2020-07-12] MEDS: METOCLOPRAMIDE 5 MG TAB PO SCH ×3 (07:43→17:11)
[2020-07-12] MEDS: DILTIAZEM CD 120 MG CAP.ER.24H PO SCH (07:43)
[2020-07-12 10:40] LABS: Basophils % (A) 0 %; Eosinophils # (A) 0.1 k/uL (0-0.7); Eosinophils % (A) 1 %; HCT 46.1 % (34.0-46.0); HGB 15.9 gm/dL (11.4-16.0); Lymphocytes # (A) 0.3 k/uL (1.0-4.8); Lymphocytes % (A) 3 %; MCH 30.7 pg (25.0-35.0); MCHC 34.5 g/dL (31.0-37.0); Mean Platelet Volume 7.5; Monocytes # (A) 0.5 k/uL (0-1.0); Monocytes % (A) 7 %; Neutrophils # (A) 6.7 k/uL (1.3-7.7); Neutrophils % (A) 88 %; Platelet Count 296 k/uL (150-450); RBC 5.18 m/uL (3.80-5.40); RDW 12.9 % (11.5-15.5); WBC 7.7 k/uL (3.8-10.6)
[2020-07-12 10:53] LABS: ALT 80 U/L (4-34); AST 35 U/L (14-36); African American GFR (CKD) >90 (>60 ml/min/1.73 sqM); Albumin 2.9 g/dL (3.5-5.0); Albumin/Globulin Ratio 1.2; Alkaline Phosphatase 93 U/L (38-126); Anion Gap 5 mmol/L; Blood Urea Nitrogen 23 mg/dL (7-17); Calcium 8.3 mg/dL (8.4-10.2); Carbon Dioxide 25 mmol/L (22-30); Chloride 102 mmol/L (98-107); Globulin 2.4 g/dL; Glucose 191 mg/dL (74-99); Non-African American GFR(CKD) >90 (>60 ml/min/1.73 sqM); Potassium 4.7 mmol/L (3.5-5.1); Sodium 132 mmol/L (137-145); Total Bilirubin 0.5 mg/dL (0.2-1.3); Total Protein 5.3 g/dL (6.3-8.2)
--- NOTE | 2020-07-12 16:54 | P.PN ---
Subjective Progress Note Date: 07/12/20 Principal diagnosis: Pleasant 74-year-old female patient, no history of any chronic lung disease, no history of smoking, she was hospitalized for COVID 19 related pneumonia and some shortness of breath and hypoxemia. The patient was doing well until around a week ago when she started having body aches, fever and chills and tiredness and fatigue and she lost her smell and taste. On today's ago, she started expressing some shortness of breath and cough. She came into the emergency department and a chest x-ray showed diffuse bilateral pulmonary infiltrates. She was initially placed on oxygen at 4 L and currently she is on 6 L with a pulse ox of 89-90%. Her CRP is at 17. Her LDH is still pending. Glucose is 122, d-dimer is at 0.5, lymphocyte count is at 0.4, LFTs are normal. EKG showing a normal sinus rhythm. She is currently comfortable and she is not having any specific complaints other than feeling fatigued and tired. She is able to lay down flat in bed without any major difficulties. No cardiomyopathy. No history of DVT and pulmonary embolism. She has several other family members at home infected with COVID and they have all recovered. The patient is seen today 07/08/2020 in follow-up on the regular medical floor. She is currently awake, alert in no acute distress. She is on 15 L high flow nasal cannula and maintaining O2 saturations in the low 90s. This is day #2 of Remdesivir. Chest x-ray reveals bilateral airspace disease. white count 9.9. Hemoglobin 16.6. Lymphocytes 0.59. D-dimer 0.39. Sodium 137. Potassium 4.4. Creatinine 0.8. LDH 453. C-reactive protein 6.0. Pro calcitonin 0.04. She remains on Decadron, Lovenox, vitamin supplements. The patient is seen today 07/09/2020 in follow-up on the regular medical floor. She is awake and alert in no acute distress. She is maintaining O2 saturations in the low 90s on 15 L high flow nasal cannula. She did receive tocilizumab. This is day #3 of Remdesivir. She remains on Decadron, Lovenox, vitamin supplements. D-dimer 0.45. LDH 1335. C-reactive protein 30.6. The patient is seen today 07/10/2020 in follow-up on the regular medical floor. She is currently resting comfortably in. Awake and alert in no acute distress. Better today compared to yesterday. She is still requiring 15 L high flow nasal cannula to maintain O2 saturations in the 90s. This is day #4 of her Remdesivir. She is continued on Lovenox, Decadron, vitamin supplements. D- dimer 0.48. LDH 495. Pleasant 74-year-old female patient, no history of any chronic lung disease, no history of smoking, she was hospitalized for COVID 19 related pneumonia and some shortness of breath and hypoxemia. The patient was doing well until around a week ago when she started having body aches, fever and chills and tiredness and fatigue and she lost her smell and taste. On today's ago, she started expressing some shortness of breath and cough. She came into the emergency department and a chest x-ray showed diffuse bilateral pulmonary infiltrates. She was initially placed on oxygen at 4 L and currently she is on 6 L with a pulse ox of 89-90%. Her CRP is at 17. Her LDH is still pending. Glucose is 122, d-dimer is at 0.5, lymphocyte count is at 0.4, LFTs are normal. EKG showing a normal sinus rhythm. She is currently comfortable and she is not having any specific complaints other than feeling fatigued and tired. She is able to lay down flat in bed without any major difficulties. No cardiomyopathy. No history of DVT and pulmonary embolism. She has several other family members at home infected with COVID and they have all recovered. The patient is seen today 07/08/2020 in follow-up on the regular medical floor. She is currently awake, alert in no acute distress. She is on 15 L high flow nasal cannula and maintaining O2 saturations in the low 90s. This is day #2 of Remdesivir. Chest x-ray reveals bilateral airspace disease. white count 9.9. Hemoglobin 16.6. Lymphocytes 0.59. D-dimer 0.39. Sodium 137. Potassium 4.4. Creatinine 0.8. LDH 453. C-reactive protein 6.0. Pro calcitonin 0.04. She remains on Decadron, Lovenox, vitamin supplements. The patient is seen today 07/09/2020 in follow-up on the regular medical floor. She is awake and alert in no acute distress. She is maintaining O2 saturations in the low 90s on 15 L high flow nasal cannula. She did receive tocilizumab. This is day #3 of Remdesivir. She remains on Decadron, Lovenox, vitamin supplements. D-dimer 0.45. LDH 1335. C-reactive protein 30.6. The patient is seen today 07/10/2020 in follow-up on the regular medical floor. She is currently resting comfortably in. Awake and alert in no acute distress. Better today compared to yesterday. She is still requiring 15 L high flow nasal cannula to maintain O2 saturations in the 90s. This is day #4 of her Remdesivir. She is continued on Lovenox, Decadron, vitamin supplements. D- dimer 0.48. LDH 495. The patient is seen today 07/11/2000 in follow-up on the regular medical floor. She is currently sitting up in a chair at the bedside. Awake and alert in no acute distress. She is down to 11 L high flow nasal cannula O2 saturation 94%. Her chest x-ray showing slight improvement in the bilateral patchy infiltrates. D-dimer 0.45. LDH 1110. C-reactive protein 11.5. She completed her course of Remdesivir today. Remains on Lovenox, dexamethasone, vitamin supplements. The patient is seen today 07/12/2020 in follow-up on the regular medical floor. She is currently sitting up in a chair. Awake and alert in no acute distress. She is down to 9 L high flow nasal cannula. Feeling better today compared to yesterday. White count 7.7. Hemoglobin 15.9. Lymphocytes 0.3. Sodium 132. Potassium 4.7. Creatinine 0.60. She remains on dexamethasone, Lovenox, vitamin supplements. Completed her course of Remdesivir. Objective - Vital Signs Vital signs: Vital Signs Temp 97.2 F L 07/12/20 14:00 Pulse 76 07/12/20 14:00 Resp 22 07/12/20 14:00 BP 139/85 07/12/20 14:00 Pulse Ox 93 L 07/12/20 15:50 Intake & Output 07/11/20 07/12/20 07/12/20 18:59 06:59 18:59 Weight 90.718 kg Other: Voiding Method Bedside Commode Bedside Commode # Voids 1 - Exam fareed Kwok 74-year-old female patient, appears well nourished and normally developed. On 9 L high flow nasal cannula. Vital signs as documented. Head exam is unremarkable. No scleral icterus or corneal arcus noted. Neck is without jugular venous distension, thyromegaly, or carotid bruits. Carotid upstrokes are brisk bilaterally. Lungs are diminished breath sounds along with crackles in the lung bases bilaterally. Cardiac exam reveals the PMI to be normally sized and situated. Rhythm is regular. First and second heart sounds normal. No murmurs, rubs or gallops. Abdominal exam reveals normal bowel sounds, no masses, no organomegaly and no aortic enlargement. Extremities are nonedematous and both femoral and pedal pulses are normal.Examination of the skin revealed no evidence of significant rashes, suspicious appearing nevi or other concerning lesions.Neurologically, the patient is awake and alert and the patient does not have any focal neurological deficit. Cranial nerves are essentially intact. - Labs CBC & Chem 7: 07/12/20 10:09 07/12/20 10:09 Labs: Abnormal Lab Results - Last 24 Hours (Table) 07/11/20 07/12/20 07/12/20 Range/Units 08:43 10:09 10:09 Hct 46.1 H (34.0-46.0) % Lymphocytes # 0.3 L (1.0-4.8) k/uL Sodium 132 L (137-145) mmol/L BUN 23 H (7-17) mg/dL Glucose 191 H (74-99) mg/dL Calcium 8.3 L (8.4-10.2) mg/dL Ferritin 379.3 H (10.0-291.0) ng/mL ALT 80 H (4-34) U/L Total Protein 5.3 L (6.3-8.2) g/dL Albumin 2.9 L (3.5-5.0) g/dL Assessment and Plan Assessment: 1 Acute bilateral Covid 19 related pneumonia. She became symptomatic on 06/30/2020 and completed her course of Remdesivir. 2 Acute hypoxic respiratory failure currently on 11 L of oxygen by nasal cannula 3 Dyspnea cough secondary to above 4 Lymphopenia secondary to above 5 Breast cancer postlumpectomy followed by radiation therapy and removal treatment and she is currently off the hormonal pill 6 history of SVT currently in sinus rhythm and the patient takes Cardizem Plan The patient was seen and evaluated by Dr. Vines Continue Lovenox, Decadron, vitamin supplement Titrate the FiO2 as tolerated Home once down to 4-5 L per nasal cannula We'll continue to follow I, the cosigning physician, performed a history & physical examination of the patient. Lungs sounds crackles in the bilateral posterior bases. Maintaining good O2 saturations in the 90s on 9 L high flow nasal cannula. I discussed the assessment and plan of care with my nurse practitioner, Deandra Morejon. I attest to the above note as dictated by her.
[2020-07-12] MEDS: ALPRAZolam 0.5 MG TAB PO PRN (20:56)
[2020-07-12] MEDS: MELATONIN 3 MG TABLET PO SCH (21:41)
--- NOTE | 2020-07-13 07:59 | P.PN ---
Subjective Progress Note Date: 07/12/20 74 results female with past medical history of supraventricular tachycardia, right breast invasive lobular carcinoma status post radiotherapy last dose on January 2019. No history of chemotherapy. This patient of Dr. Madsen about Patient was recently diagnosed with, with 10 days ago. When she was diagnosed by her PCP Dr. Tena Melo's office, that time she was complaining of from headache, fever and coughing with fatigue She is getting worse with exertional dyspnea and nausea and fatigue. Loss of smell and taste. She denies abdominal pain or diarrhea. No vomiting. 07/12/2020 Patient is seen and evaluated in follow-up on the regular medical floor. She is currently sitting up in a chair. Awake and alert in no acute distress. She is down to 9 L high flow nasal cannula. Feeling better today compared to yesterday. White count 7.7. Hemoglobin 15.9. Lymphocytes 0.3. Sodium 132. Potassium 4.7. Creatinine 0.60. She remains on dexamethasone, Lovenox, vitamin supplements. Patient has completed her course of Remdesivir. Pulmonary service recommending to continue current treatment with plan to titrate FiO2 as tolerated; patient may be discharged home once down to 4-5 L per nasal cannula Review of Systems -CONSTITUTIONAL: As above HEENT: No recent visual problems or hearing problems. Denied any sore throat. CARDIOVASCULAR: No orthopnea, PND, no palpitations, no syncope. PULMONARY: No chest wall tenderness, no hemoptysis. GASTROINTESTINAL: No diarrhea, no nausea, no vomiting, no abdominal pain. Normoactive bowel sounds. NEUROLOGICAL: No headaches, no weakness, no numbness. HEMATOLOGICAL: Denies any bleeding or petechiae. Objective - Vital Signs Vital signs: Vital Signs Temp 97.6 F 07/12/20 05:02 Pulse 67 07/12/20 05:02 Resp 14 07/12/20 05:02 BP 133/65 07/12/20 05:02 Pulse Ox 96 07/12/20 05:02 Intake & Output 07/11/20 07/12/20 07/12/20 18:59 06:59 18:59 Weight 90.718 kg Other: Voiding Method Bedside Commode Bedside Commode # Voids 1 - Exam GENERAL: The patient is alert and oriented x3, not in any acute distress. Well developed, well nourished. HEENT: Pupils are round and equally reacting to light. EOMI. No scleral icterus. No conjunctival pallor. Normocephalic, atraumatic. No pharyngeal erythema. No thyromegaly. CARDIOVASCULAR: S1 and S2 present. No murmurs, rubs, or gallops. -PULMONARY: Chest is clear to auscultation, scattered crackles bilaterally ABDOMEN: Soft, nontender, nondistended, normoactive bowel sounds. No palpable organomegaly. MUSCULOSKELETAL: No joint swelling or deformity. EXTREMITIES: No cyanosis, clubbing, or pedal edema. NEUROLOGICAL: Gross neurological examination did not reveal any focal deficits. SKIN: No rashes. no petechiae. - Labs CBC & Chem 7: 07/12/20 10:09 07/12/20 10:09 Labs: Abnormal Lab Results - Last 24 Hours (Table) 07/11/20 Range/Units 08:43 Ferritin 379.3 H (10.0-291.0) ng/mL Assessment and Plan Assessment: Acute Bilateral covid pneumonia Acute hypoxic respiratory failure secondary to above Increase inflammatory markers History of right breast invasive lobular carcinoma History of supraventricular tachycardia Plan: 74 years old female who presents with cough and pneumonia. Continue with oxygen, dexamethasone, zinc and vitamin C and Lovenox. Pulmonary consult Labs and medication were reviewed.. Continue same treatment. Continue with symptomatic treatment. Resume home medication. Monitor lytes and vitals. DVT and GI prophylaxis. Further recommendations depends on the clinical course of the patient DVT prophylaxis: Subcutaneous Lovenox GI Prophylaxis: Pepcid PT/OT: Pending Prognosis is guarded
[2020-07-13] MEDS: ASCORBIC ACID 500 MG TAB PO SCH (08:13)
[2020-07-13] MEDS: DEXAMETHASONE SOD PHOSPHATE 10 MG/ML 1 ML VIAL IV SCH (08:13)
[2020-07-13] MEDS: FAMOTIDINE 20 MG TAB PO SCH (08:13)
[2020-07-13] MEDS: ZINC SULFATE 220 MG CAP PO SCH (08:13)
[2020-07-13] MEDS: DILTIAZEM CD 120 MG CAP.ER.24H PO SCH (08:13)
[2020-07-13] MEDS: CHOLECALCIFEROL 25 MCG (1000 IU) TABLET PO SCH (08:13)
[2020-07-13] MEDS: ENOXAPARIN 40 MG/0.4 ML SYRINGE SQ SCH (08:14)
[2020-07-13] MEDS: METOCLOPRAMIDE 5 MG TAB PO SCH ×3 (08:14→17:14)
[2020-07-13 08:19] LABS: African American GFR (CKD) 84 (>60 ml/min/1.73 sqM); Anion Gap 3 mmol/L; Blood Urea Nitrogen 23 mg/dL (7-17); Calcium 8.5 mg/dL (8.4-10.2); Carbon Dioxide 31 mmol/L (22-30); Chloride 102 mmol/L (98-107); Glucose 156 mg/dL (74-99); Non-African American GFR(CKD) 73 (>60 ml/min/1.73 sqM); Potassium 4.7 mmol/L (3.5-5.1); Sodium 136 mmol/L (137-145)
[2020-07-13 08:24] LABS: Basophils % (A) 0 %; Eosinophils # (A) 0.1 k/uL (0-0.7); Eosinophils % (A) 1 %; HCT 50.5 % (34.0-46.0); HGB 16.5 gm/dL (11.4-16.0); Lymphocytes # (A) 0.5 k/uL (1.0-4.8); Lymphocytes % (A) 5 %; MCHC 32.6 g/dL (31.0-37.0); MCV 88.9 fL (80.0-100.0); Mean Platelet Volume 7.9; Monocytes # (A) 0.8 k/uL (0-1.0); Monocytes % (A) 8 %; Neutrophils # (A) 9.1 k/uL (1.3-7.7); Neutrophils % (A) 86 %; Platelet Count 323 k/uL (150-450); RBC 5.68 m/uL (3.80-5.40); WBC 10.6 k/uL (3.8-10.6)
--- NOTE | 2020-07-13 15:55 | P.PN ---
Subjective Progress Note Date: 07/13/20 Principal diagnosis: Pleasant 74-year-old female patient, no history of any chronic lung disease, no history of smoking, she was hospitalized for COVID 19 related pneumonia and some shortness of breath and hypoxemia. The patient was doing well until around a week ago when she started having body aches, fever and chills and tiredness and fatigue and she lost her smell and taste. On today's ago, she started expressing some shortness of breath and cough. She came into the emergency department and a chest x-ray showed diffuse bilateral pulmonary infiltrates. She was initially placed on oxygen at 4 L and currently she is on 6 L with a pulse ox of 89-90%. Her CRP is at 17. Her LDH is still pending. Glucose is 122, d-dimer is at 0.5, lymphocyte count is at 0.4, LFTs are normal. EKG showing a normal sinus rhythm. She is currently comfortable and she is not having any specific complaints other than feeling fatigued and tired. She is able to lay down flat in bed without any major difficulties. No cardiomyopathy. No history of DVT and pulmonary embolism. She has several other family members at home infected with COVID and they have all recovered. The patient is seen today 07/08/2020 in follow-up on the regular medical floor. She is currently awake, alert in no acute distress. She is on 15 L high flow nasal cannula and maintaining O2 saturations in the low 90s. This is day #2 of Remdesivir. Chest x-ray reveals bilateral airspace disease. white count 9.9. Hemoglobin 16.6. Lymphocytes 0.59. D-dimer 0.39. Sodium 137. Potassium 4.4. Creatinine 0.8. LDH 453. C-reactive protein 6.0. Pro calcitonin 0.04. She remains on Decadron, Lovenox, vitamin supplements. The patient is seen today 07/09/2020 in follow-up on the regular medical floor. She is awake and alert in no acute distress. She is maintaining O2 saturations in the low 90s on 15 L high flow nasal cannula. She did receive tocilizumab. This is day #3 of Remdesivir. She remains on Decadron, Lovenox, vitamin supplements. D-dimer 0.45. LDH 1335. C-reactive protein 30.6. The patient is seen today 07/10/2020 in follow-up on the regular medical floor. She is currently resting comfortably in. Awake and alert in no acute distress. Better today compared to yesterday. She is still requiring 15 L high flow nasal cannula to maintain O2 saturations in the 90s. This is day #4 of her Remdesivir. She is continued on Lovenox, Decadron, vitamin supplements. D- dimer 0.48. LDH 495. Pleasant 74-year-old female patient, no history of any chronic lung disease, no history of smoking, she was hospitalized for COVID 19 related pneumonia and some shortness of breath and hypoxemia. The patient was doing well until around a week ago when she started having body aches, fever and chills and tiredness and fatigue and she lost her smell and taste. On today's ago, she started expressing some shortness of breath and cough. She came into the emergency department and a chest x-ray showed diffuse bilateral pulmonary infiltrates. She was initially placed on oxygen at 4 L and currently she is on 6 L with a pulse ox of 89-90%. Her CRP is at 17. Her LDH is still pending. Glucose is 122, d-dimer is at 0.5, lymphocyte count is at 0.4, LFTs are normal. EKG showing a normal sinus rhythm. She is currently comfortable and she is not having any specific complaints other than feeling fatigued and tired. She is able to lay down flat in bed without any major difficulties. No cardiomyopathy. No history of DVT and pulmonary embolism. She has several other family members at home infected with COVID and they have all recovered. The patient is seen today 07/08/2020 in follow-up on the regular medical floor. She is currently awake, alert in no acute distress. She is on 15 L high flow nasal cannula and maintaining O2 saturations in the low 90s. This is day #2 of Remdesivir. Chest x-ray reveals bilateral airspace disease. white count 9.9. Hemoglobin 16.6. Lymphocytes 0.59. D-dimer 0.39. Sodium 137. Potassium 4.4. Creatinine 0.8. LDH 453. C-reactive protein 6.0. Pro calcitonin 0.04. She remains on Decadron, Lovenox, vitamin supplements. The patient is seen today 07/09/2020 in follow-up on the regular medical floor. She is awake and alert in no acute distress. She is maintaining O2 saturations in the low 90s on 15 L high flow nasal cannula. She did receive tocilizumab. This is day #3 of Remdesivir. She remains on Decadron, Lovenox, vitamin supplements. D-dimer 0.45. LDH 1335. C-reactive protein 30.6. The patient is seen today 07/10/2020 in follow-up on the regular medical floor. She is currently resting comfortably in. Awake and alert in no acute distress. Better today compared to yesterday. She is still requiring 15 L high flow nasal cannula to maintain O2 saturations in the 90s. This is day #4 of her Remdesivir. She is continued on Lovenox, Decadron, vitamin supplements. D- dimer 0.48. LDH 495. The patient is seen today 07/11/2000 in follow-up on the regular medical floor. She is currently sitting up in a chair at the bedside. Awake and alert in no acute distress. She is down to 11 L high flow nasal cannula O2 saturation 94%. Her chest x-ray showing slight improvement in the bilateral patchy infiltrates. D-dimer 0.45. LDH 1110. C-reactive protein 11.5. She completed her course of Remdesivir today. Remains on Lovenox, dexamethasone, vitamin supplements. The patient is seen today 07/12/2020 in follow-up on the regular medical floor. She is currently sitting up in a chair. Awake and alert in no acute distress. She is down to 9 L high flow nasal cannula. Feeling better today compared to yesterday. White count 7.7. Hemoglobin 15.9. Lymphocytes 0.3. Sodium 132. Potassium 4.7. Creatinine 0.60. She remains on dexamethasone, Lovenox, vitamin supplements. Completed her course of Remdesivir. The patient is seen today 07/13/2020 in follow-up on the regular medical floor. She is currently sitting up in a chair at the bedside. Awake and alert in no acute distress. She is down to 8 L high flow nasal cannula. She's been afebrile. Hemodynamically stable. White count 10.6. Hemoccult of 16.5. Lymphocytes 0.5. Sodium 136. Potassium 4.7. Creatinine 0.81. She remains on dexamethasone, Lovenox, vitamin supplements. Objective - Vital Signs Vital signs: Vital Signs Temp 97.4 F L 07/13/20 14:00 Pulse 76 07/13/20 14:00 Resp 15 07/13/20 14:00 BP 143/74 07/13/20 14:00 Pulse Ox 93 L 07/13/20 14:00 Intake & Output 07/12/20 07/13/20 07/13/20 18:59 06:59 18:59 Intake Total 450 Balance 450 Intake: Oral 450 Other: Voiding Method Bedside Commode # Voids 3 2 1 # Bowel Movements 1 - Exam fareed Kwok 74-year-old female patient, appears well nourished and normally developed. On 8 L high flow nasal cannula. Vital signs as documented. Head exam is unremarkable. No scleral icterus or corneal arcus noted. Neck is without jugular venous distension, thyromegaly, or carotid bruits. Carotid upstrokes are brisk bilaterally. Lungs are diminished breath sounds along with crackles in the lung bases bilaterally. Cardiac exam reveals the PMI to be normally sized and situated. Rhythm is regular. First and second heart sounds normal. No murmurs, rubs or gallops. Abdominal exam reveals normal bowel sounds, no masses, no organomegaly and no aortic enlargement. Extremities are nonedematous and both femoral and pedal pulses are normal.Examination of the skin revealed no evidence of significant rashes, suspicious appearing nevi or other concerning lesions.Neurologically, the patient is awake and alert and the patient does not have any focal neurological deficit. Cranial nerves are essentially intact. - Labs CBC & Chem 7: 07/13/20 07:00 07/13/20 07:00 Labs: Abnormal Lab Results - Last 24 Hours (Table) 07/13/20 07/13/20 Range/Units 07:00 07:00 RBC 5.68 H (3.80-5.40) m/uL Hgb 16.5 H (11.4-16.0) gm/dL Hct 50.5 H (34.0-46.0) % Neutrophils # 9.1 H (1.3-7.7) k/uL Lymphocytes # 0.5 L (1.0-4.8) k/uL Sodium 136 L (137-145) mmol/L Carbon Dioxide 31 H (22-30) mmol/L BUN 23 H (7-17) mg/dL Glucose 156 H (74-99) mg/dL Assessment and Plan Assessment: 1 Acute bilateral Covid 19 related pneumonia. She became symptomatic on 06/30/2020 and completed her course of Remdesivir. 2 Acute hypoxic respiratory failure currently on 8 L of oxygen by nasal cannula 3 Dyspnea cough secondary to above 4 Lymphopenia secondary to above 5 Breast cancer postlumpectomy followed by radiation therapy and removal treatment and she is currently off the hormonal pill 6 history of SVT currently in sinus rhythm and the patient takes Cardizem Plan The patient was seen and evaluated by Dr. Vines Currently down to 8 L high flow nasal cannula Home once down to 4-5 L per nasal cannula Continue the current treatment plan We'll continue to follow I, the cosigning physician, performed a history & physical examination of the patient. Lungs sounds crackles in the bilateral posterior bases. Maintaining good O2 saturations in the 90s on 8 L high flow nasal cannula. I discussed the assessment and plan of care with my nurse practitioner, Deandra Morejon. I attest to the above note as dictated by her.
--- NOTE | 2020-07-13 17:40 | P.PN ---
Subjective Progress Note Date: 07/13/20 Principal diagnosis: Acute bilateral Covid 19 related pneumonia. 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 No history of chemotherapy. This patient of Dr. Madsen about Patient was recently diagnosed with, with 10 days ago. When she was diagnosed by her PCP Dr. Tena Melo's office, that time she was complaining of from headache, fever and coughing with fatigue She is getting worse with exertional dyspnea and nausea and fatigue. Loss of smell and taste. She denies abdominal pain or diarrhea. No vomiting. 07/12/2020 Patient is seen and evaluated in follow-up on the regular medical floor. She is currently sitting up in a chair. Awake and alert in no acute distress. She is down to 9 L high flow nasal cannula. Feeling better today compared to yesterday. White count 7.7. Hemoglobin 15.9. Lymphocytes 0.3. Sodium 132. Potassium 4.7. Creatinine 0.60. She remains on dexamethasone, Lovenox, vitamin supplements. Patient has completed her course of Remdesivir. Pulmonary service recommending to continue current treatment with plan to titrate FiO2 as tolerated; patient may be discharged home once down to 4-5 L per nasal cannula Review of Systems -CONSTITUTIONAL: As above HEENT: No recent visual problems or hearing problems. Denied any sore throat. CARDIOVASCULAR: No orthopnea, PND, no palpitations, no syncope. PULMONARY: No chest wall tenderness, no hemoptysis. GASTROINTESTINAL: No diarrhea, no nausea, no vomiting, no abdominal pain. Normoactive bowel sounds. NEUROLOGICAL: No headaches, no weakness, no numbness. HEMATOLOGICAL: Denies any bleeding or petechiae. Objective - Vital Signs Vital signs: Vital Signs Temp 97.4 F L 07/13/20 10:25 Pulse 92 07/13/20 10:25 Resp 14 07/13/20 10:25 BP 127/69 07/13/20 10:25 Pulse Ox 92 L 07/13/20 10:25 Intake & Output 07/12/20 07/13/20 07/13/20 18:59 06:59 18:59 Intake Total 450 Balance 450 Intake: Oral 450 Other: Voiding Method Bedside Commode # Voids 3 2 1 # Bowel Movements 1 - Exam GENERAL: The patient is alert and oriented x3, not in any acute distress. Well developed, well nourished. HEENT: Pupils are round and equally reacting to light. EOMI. No scleral icterus. No conjunctival pallor. Normocephalic, atraumatic. No pharyngeal erythema. No thyromegaly. CARDIOVASCULAR: S1 and S2 present. No murmurs, rubs, or gallops. -PULMONARY: Chest is clear to auscultation, scattered crackles bilaterally ABDOMEN: Soft, nontender, nondistended, normoactive bowel sounds. No palpable organomegaly. MUSCULOSKELETAL: No joint swelling or deformity. EXTREMITIES: No cyanosis, clubbing, or pedal edema. NEUROLOGICAL: Gross neurological examination did not reveal any focal deficits. SKIN: No rashes. no petechiae. - Labs CBC & Chem 7: 07/13/20 07:00 07/13/20 07:00 Labs: Abnormal Lab Results - Last 24 Hours (Table) 07/13/20 07/13/20 Range/Units 07:00 07:00 RBC 5.68 H (3.80-5.40) m/uL Hgb 16.5 H (11.4-16.0) gm/dL Hct 50.5 H (34.0-46.0) % Neutrophils # 9.1 H (1.3-7.7) k/uL Lymphocytes # 0.5 L (1.0-4.8) k/uL Sodium 136 L (137-145) mmol/L Carbon Dioxide 31 H (22-30) mmol/L BUN 23 H (7-17) mg/dL Glucose 156 H (74-99) mg/dL Assessment and Plan Assessment: Acute Bilateral covid pneumonia Acute hypoxic respiratory failure secondary to above Increase inflammatory markers History of right breast invasive lobular carcinoma History of supraventricular tachycardia Plan: 74 years old female who presents with cough and pneumonia. Continue with oxygen, dexamethasone, zinc and vitamin C and Lovenox. Pulmonary consult Labs and medication were reviewed.. Continue same treatment. Continue with symptomatic treatment. Resume home medication. Monitor lytes and vitals. DVT and GI prophylaxis. Further recommendations depends on the clinical course of the patient DVT prophylaxis: Subcutaneous Lovenox GI Prophylaxis: Pepcid PT/OT: Pending Prognosis is guarded
[2020-07-13] MEDS: MELATONIN 3 MG TABLET PO SCH (21:04)
[2020-07-13] MEDS: ALPRAZolam 0.5 MG TAB PO PRN (21:21)
[2020-07-14] MEDS: ZINC SULFATE 220 MG CAP PO SCH (08:17)
[2020-07-14] MEDS: ENOXAPARIN 40 MG/0.4 ML SYRINGE SQ SCH (08:17)
[2020-07-14] MEDS: ASCORBIC ACID 500 MG TAB PO SCH (08:17)
[2020-07-14] MEDS: DEXAMETHASONE SOD PHOSPHATE 10 MG/ML 1 ML VIAL IV SCH (08:17)
[2020-07-14] MEDS: FAMOTIDINE 20 MG TAB PO SCH (08:17)
[2020-07-14] MEDS: CHOLECALCIFEROL 25 MCG (1000 IU) TABLET PO SCH (08:18)
[2020-07-14] MEDS: METOCLOPRAMIDE 5 MG TAB PO SCH ×3 (08:18→16:21)
[2020-07-14] MEDS: DILTIAZEM CD 120 MG CAP.ER.24H PO SCH (08:18)
--- NOTE | 2020-07-14 16:03 | P.PN ---
Subjective Progress Note Date: 07/14/20 Principal diagnosis: Pleasant 74-year-old female patient, no history of any chronic lung disease, no history of smoking, she was hospitalized for COVID 19 related pneumonia and some shortness of breath and hypoxemia. The patient was doing well until around a week ago when she started having body aches, fever and chills and tiredness and fatigue and she lost her smell and taste. On today's ago, she started expressing some shortness of breath and cough. She came into the emergency department and a chest x-ray showed diffuse bilateral pulmonary infiltrates. She was initially placed on oxygen at 4 L and currently she is on 6 L with a pulse ox of 89-90%. Her CRP is at 17. Her LDH is still pending. Glucose is 122, d-dimer is at 0.5, lymphocyte count is at 0.4, LFTs are normal. EKG showing a normal sinus rhythm. She is currently comfortable and she is not having any specific complaints other than feeling fatigued and tired. She is able to lay down flat in bed without any major difficulties. No cardiomyopathy. No history of DVT and pulmonary embolism. She has several other family members at home infected with COVID and they have all recovered. The patient is seen today 07/08/2020 in follow-up on the regular medical floor. She is currently awake, alert in no acute distress. She is on 15 L high flow nasal cannula and maintaining O2 saturations in the low 90s. This is day #2 of Remdesivir. Chest x-ray reveals bilateral airspace disease. white count 9.9. Hemoglobin 16.6. Lymphocytes 0.59. D-dimer 0.39. Sodium 137. Potassium 4.4. Creatinine 0.8. LDH 453. C-reactive protein 6.0. Pro calcitonin 0.04. She remains on Decadron, Lovenox, vitamin supplements. The patient is seen today 07/09/2020 in follow-up on the regular medical floor. She is awake and alert in no acute distress. She is maintaining O2 saturations in the low 90s on 15 L high flow nasal cannula. She did receive tocilizumab. This is day #3 of Remdesivir. She remains on Decadron, Lovenox, vitamin supplements. D-dimer 0.45. LDH 1335. C-reactive protein 30.6. The patient is seen today 07/10/2020 in follow-up on the regular medical floor. She is currently resting comfortably in. Awake and alert in no acute distress. Better today compared to yesterday. She is still requiring 15 L high flow nasal cannula to maintain O2 saturations in the 90s. This is day #4 of her Remdesivir. She is continued on Lovenox, Decadron, vitamin supplements. D- dimer 0.48. LDH 495. Pleasant 74-year-old female patient, no history of any chronic lung disease, no history of smoking, she was hospitalized for COVID 19 related pneumonia and some shortness of breath and hypoxemia. The patient was doing well until around a week ago when she started having body aches, fever and chills and tiredness and fatigue and she lost her smell and taste. On today's ago, she started expressing some shortness of breath and cough. She came into the emergency department and a chest x-ray showed diffuse bilateral pulmonary infiltrates. She was initially placed on oxygen at 4 L and currently she is on 6 L with a pulse ox of 89-90%. Her CRP is at 17. Her LDH is still pending. Glucose is 122, d-dimer is at 0.5, lymphocyte count is at 0.4, LFTs are normal. EKG showing a normal sinus rhythm. She is currently comfortable and she is not having any specific complaints other than feeling fatigued and tired. She is able to lay down flat in bed without any major difficulties. No cardiomyopathy. No history of DVT and pulmonary embolism. She has several other family members at home infected with COVID and they have all recovered. The patient is seen today 07/08/2020 in follow-up on the regular medical floor. She is currently awake, alert in no acute distress. She is on 15 L high flow nasal cannula and maintaining O2 saturations in the low 90s. This is day #2 of Remdesivir. Chest x-ray reveals bilateral airspace disease. white count 9.9. Hemoglobin 16.6. Lymphocytes 0.59. D-dimer 0.39. Sodium 137. Potassium 4.4. Creatinine 0.8. LDH 453. C-reactive protein 6.0. Pro calcitonin 0.04. She remains on Decadron, Lovenox, vitamin supplements. The patient is seen today 07/09/2020 in follow-up on the regular medical floor. She is awake and alert in no acute distress. She is maintaining O2 saturations in the low 90s on 15 L high flow nasal cannula. She did receive tocilizumab. This is day #3 of Remdesivir. She remains on Decadron, Lovenox, vitamin supplements. D-dimer 0.45. LDH 1335. C-reactive protein 30.6. The patient is seen today 07/10/2020 in follow-up on the regular medical floor. She is currently resting comfortably in. Awake and alert in no acute distress. Better today compared to yesterday. She is still requiring 15 L high flow nasal cannula to maintain O2 saturations in the 90s. This is day #4 of her Remdesivir. She is continued on Lovenox, Decadron, vitamin supplements. D- dimer 0.48. LDH 495. The patient is seen today 07/11/2000 in follow-up on the regular medical floor. She is currently sitting up in a chair at the bedside. Awake and alert in no acute distress. She is down to 11 L high flow nasal cannula O2 saturation 94%. Her chest x-ray showing slight improvement in the bilateral patchy infiltrates. D-dimer 0.45. LDH 1110. C-reactive protein 11.5. She completed her course of Remdesivir today. Remains on Lovenox, dexamethasone, vitamin supplements. The patient is seen today 07/12/2020 in follow-up on the regular medical floor. She is currently sitting up in a chair. Awake and alert in no acute distress. She is down to 9 L high flow nasal cannula. Feeling better today compared to yesterday. White count 7.7. Hemoglobin 15.9. Lymphocytes 0.3. Sodium 132. Potassium 4.7. Creatinine 0.60. She remains on dexamethasone, Lovenox, vitamin supplements. Completed her course of Remdesivir. The patient is seen today 07/13/2020 in follow-up on the regular medical floor. She is currently sitting up in a chair at the bedside. Awake and alert in no acute distress. She is down to 8 L high flow nasal cannula. She's been afebrile. Hemodynamically stable. White count 10.6. Hemoccult of 16.5. Lymphocytes 0.5. Sodium 136. Potassium 4.7. Creatinine 0.81. She remains on dexamethasone, Lovenox, vitamin supplements. The patient is seen today 07/14/2020 in follow-up on the regular medical floor. She is currently sitting up in bed. Awake and alert in no acute distress. She is down to 3 L nasal cannula to maintain O2 saturation in the high 80s low 90s. She remains on Decadron, Lovenox, vitamin supplements. Objective - Vital Signs Vital signs: Vital Signs Temp 97.4 F L 07/14/20 14:06 Pulse 90 07/14/20 14:06 Resp 16 07/14/20 14:06 BP 126/62 07/14/20 10:00 Pulse Ox 92 L 07/14/20 14:06 Intake & Output 07/13/20 07/14/20 07/14/20 18:59 06:59 18:59 Other: Voiding Method Bedside Commode Bedside Commode Bedside Commode # Voids 1 2 1 # Bowel Movements 1 - Exam fareed Kwok 74-year-old female patient, appears well nourished and normally developed. On 3 L high flow nasal cannula. Vital signs as documented. Head exam is unremarkable. No scleral icterus or corneal arcus noted. Neck is without jugular venous distension, thyromegaly, or carotid bruits. Carotid upstrokes are brisk bilaterally. Lungs are diminished breath sounds along with crackles in the lung bases bilaterally. Cardiac exam reveals the PMI to be normally sized and situated. Rhythm is regular. First and second heart sounds normal. No murmurs, rubs or gallops. Abdominal exam reveals normal bowel sounds, no masses, no organomegaly and no aortic enlargement. Extremities are nonedematous and both femoral and pedal pulses are normal.Examination of the skin revealed no evidence of significant rashes, suspicious appearing nevi or other concerning les ions.Neurologically, the patient is awake and alert and the patient does not have any focal neurological deficit. Cranial nerves are essentially intact. - Labs CBC & Chem 7: 07/13/20 07:00 07/13/20 07:00 Assessment and Plan Assessment: 1 Acute bilateral Covid 19 related pneumonia. She became symptomatic on and completed her course of Remdesivir. 2 Acute hypoxic respiratory failure currently on 8 L of oxygen by nasal cannula 3 Dyspnea cough secondary to above 4 Lymphopenia secondary to above 5 Breast cancer postlumpectomy followed by radiation therapy and removal treatment and she is currently off the hormonal pill 6 history of SVT currently in sinus rhythm and the patient takes Cardizem Plan The patient was seen and evaluated by Dr. Vines Currently down to 3 L high flow nasal cannula Cleared for discharge from the pulmonary standpoint I, the cosigning physician, performed a history & physical examination of the patient. Lungs sounds crackles in the bilateral posterior bases. Maintaining good O2 saturations in the 90s on 3 L nasal cannula. I discussed the assessment and plan of care with my nurse practitioner, Deandra Morejon. I attest to the above note as dictated by her.
--- NOTE | 2020-07-14 16:14 | P.PN ---
Subjective Progress Note Date: 07/14/20 Principal diagnosis: Acute bilateral Covid 19 related pneumonia. 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 No history of chemotherapy. This patient of Dr. Madsen about Patient was recently diagnosed with, with 10 days ago. When she was diagnosed by her PCP Dr. Tena Melo's office, that time she was complaining of from headache, fever and coughing with fatigue She is getting worse with exertional dyspnea and nausea and fatigue. Loss of smell and taste. She denies abdominal pain or diarrhea. No vomiting. 07/13/2020 Patient is seen and evaluated in follow-up on the regular medical floor. She is currently sitting up in a chair. Awake and alert in no acute distress. She is down to 9 L high flow nasal cannula. Feeling better today compared to yesterday. White count 7.7. Hemoglobin 15.9. Lymphocytes 0.3. Sodium 132. Potassium 4.7. Creatinine 0.60. She remains on dexamethasone, Lovenox, vitamin supplements. Patient has completed her course of Remdesivir. Pulmonary service recommending to continue current treatment with plan to titrate FiO2 as tolerated; patient may be discharged home once down to 4-5 L per nasal cannula 07/14/2020 Patient is seen and evaluated in follow-up on the regular medical floor. She is currently sitting up in bed. Awake and alert in no acute distress. She is down to 3 L nasal cannula to maintain O2 saturation in the high 80s low 90s. She remains on Decadron, Lovenox, vitamin supplements. Pulmonary on board; plan would be to discharge patient once cleared by pulmonary service Review of Systems -CONSTITUTIONAL: As above HEENT: No recent visual problems or hearing problems. Denied any sore throat. CARDIOVASCULAR: No orthopnea, PND, no palpitations, no syncope. PULMONARY: No chest wall tenderness, no hemoptysis. GASTROINTESTINAL: No diarrhea, no nausea, no vomiting, no abdominal pain. Normoactive bowel sounds. NEUROLOGICAL: No headaches, no weakness, no numbness. HEMATOLOGICAL: Denies any bleeding or petechiae. Objective - Vital Signs Vital signs: Vital Signs Temp 97.4 F L 07/14/20 05:50 Pulse 67 07/14/20 05:50 Resp 16 07/14/20 05:50 BP 129/78 07/14/20 05:50 Pulse Ox 94 L 07/14/20 05:50 Intake & Output 07/13/20 07/14/20 07/14/20 18:59 06:59 18:59 Other: Voiding Method Bedside Commode Bedside Commode # Voids 1 2 1 # Bowel Movements 1 - Exam GENERAL: The patient is alert and oriented x3, not in any acute distress. Well developed, well nourished. HEENT: Pupils are round and equally reacting to light. EOMI. No scleral icterus. No conjunctival pallor. Normocephalic, atraumatic. No pharyngeal erythema. No thyromegaly. CARDIOVASCULAR: S1 and S2 present. No murmurs, rubs, or gallops. -PULMONARY: Chest is clear to auscultation, scattered crackles bilaterally ABDOMEN: Soft, nontender, nondistended, normoactive bowel sounds. No palpable organomegaly. MUSCULOSKELETAL: No joint swelling or deformity. EXTREMITIES: No cyanosis, clubbing, or pedal edema. NEUROLOGICAL: Gross neurological examination did not reveal any focal deficits. SKIN: No rashes. no petechiae. - Labs CBC & Chem 7: 07/13/20 07:00 07/13/20 07:00 Assessment and Plan Assessment: Acute Bilateral covid pneumonia Acute hypoxic respiratory failure secondary to above Increase inflammatory markers History of right breast invasive lobular carcinoma History of supraventricular tachycardia Plan: 74 years old female who presents with cough and pneumonia. Continue with oxygen, dexamethasone, zinc and vitamin C and Lovenox. Pulmonary consult Labs and medication were reviewed.. Continue same treatment. Continue with sym ptomatic treatment. Resume home medication. Monitor lytes and vitals. DVT and GI prophylaxis. Further recommendations depends on the clinical course of the patient DVT prophylaxis: Subcutaneous Lovenox GI Prophylaxis: Pepcid PT/OT: Pending Prognosis is guarded
[2020-07-14] MEDS: MELATONIN 3 MG TABLET PO SCH (21:33)
[2020-07-14] MEDS: ALPRAZolam 0.5 MG TAB PO PRN (21:34)
[2020-07-15 06:26] VITALS: RESP 16
[2020-07-15] MEDS: ENOXAPARIN 40 MG/0.4 ML SYRINGE SQ SCH (08:38)
[2020-07-15] MEDS: ASCORBIC ACID 500 MG TAB PO SCH (08:38)
[2020-07-15] MEDS: ZINC SULFATE 220 MG CAP PO SCH (08:38)
[2020-07-15] MEDS: FAMOTIDINE 20 MG TAB PO SCH (08:38)
[2020-07-15] MEDS: CHOLECALCIFEROL 25 MCG (1000 IU) TABLET PO SCH (08:38)
[2020-07-15] MEDS: DEXAMETHASONE SOD PHOSPHATE 10 MG/ML 1 ML VIAL IV SCH (08:39)
[2020-07-15] MEDS: METOCLOPRAMIDE 5 MG TAB PO SCH ×2 (08:39→12:57)
[2020-07-15] MEDS: DILTIAZEM CD 120 MG CAP.ER.24H PO SCH (08:49)
[2020-07-15 12:11] VITALS: BP 118/67; PULSE 76; TEMP 96.4
--- NOTE | 2020-07-15 14:05 | P.DS ---
Providers Date of admission: 07/06/20 20:06 Attending physician: Janae Walker Consults: 07/07/20 09:07 Consult Physician Urgent Consulting Provider: Shelbi Valera Consult Reason/Comments: covid Do you want consulting provider notified?: Yes [facility] Course: Patient is a 4-year-old female admitted for acute hypoxic respiratory failure secondary to covid pneumonia. Patient completed 10 day course of Decadron patient was on high flow oxygen requirements have come down presently on 2 L of oxygen patient is being discharged today with the vitamins. PHYSICAL EXAMINATION: GENERAL: The patient is alert and oriented x3, not in any acute distress. Well developed, well nourished. HEENT: Pupils are round and equally reacting to light. EOMI. No scleral icterus. No conjunctival pallor. Normocephalic, atraumatic. No pharyngeal erythema. No thyromegaly. CARDIOVASCULAR: S1 and S2 present. No murmurs, rubs, or gallops. PULMONARY: Chest is clear to auscultation, no wheezing or crackles. ABDOMEN: Soft, nontender, nondistended, normoactive bowel sounds. No palpable organomegaly. MUSCULOSKELETAL: No joint swelling or deformity. EXTREMITIES: No cyanosis, clubbing, or pedal edema. NEUROLOGICAL: Gross neurological examination did not reveal any focal deficits. SKIN: No rashes. Assessment and Plan Assessment: Acute Bilateral covid pneumonia Acute hypoxic respiratory failure secondary to above History of right breast invasive lobular carcinoma History of supraventricular tachycardia Patient Condition at Discharge: Stable Plan - Discharge Summary Discharge Rx Participant: No New Discharge Prescriptions: New guaiFENesin-DM 100-10MG/5ML [Robitussin DM] 10 ml PO Q6H PRN #250 ml PRN Reason: Cough Ascorbic Acid [Vitamin C] 1,000 mg PO DAILY #30 tab Continue Diltiazem Cd [Cardizem CD] 120 mg PO QAM Multivitamins, Thera [Multivitamin (formulary)] 1 tab PO DAILY Zinc 50 mg PO DAILY Vitamin B Complex 1 cap PO DAILY Cholecalciferol [Vitamin D3 (25 Mcg = 1000 Iu)] 25 mcg PO DAILY Vit C/E/Zn/Coppr/Lutein/Zeaxan [Preservision Areds 2 Softgel] 1 cap PO DAILY Discharge Medication List Diltiazem Cd [Cardizem CD] 120 mg PO QAM 08/11/18 [History] Multivitamins, Thera [Multivitamin (formulary)] 1 tab PO DAILY 08/11/18 [History] Cholecalciferol [Vitamin D3 (25 Mcg = 1000 Iu)] 25 mcg PO DAILY 07/06/20 [History] Vit C/E/Zn/Coppr/Lutein/Zeaxan [Preservision Areds 2 Softgel] 1 cap PO DAILY 07/06/20 [History] Vitamin B Complex 1 cap PO DAILY 07/06/20 [History] Zinc 50 mg PO DAILY 07/06/20 [History] Ascorbic Acid [Vitamin C] 1,000 mg PO DAILY #30 tab 07/15/20 [Rx] guaiFENesin-DM 100-10MG/5ML [Robitussin DM] 10 ml PO Q6H PRN #250 ml 07/15/20 [Rx] Follow up Appointment(s)/Referral(s): [facility],Equipment [NON-STAFF] - (*[facility] will deliver a portable oxygen tank to your bedside before discharge. Please call them once home to arrange delivery of your oxygen concentrator today) Tena Carpenter MD [Primary Care Provider] - 07/17/20 8:30 am (This is a tele health appointment not in the office You can visit the website [email or web address] from any smart phone That website will take you to your doctors page, you then will select yes to julito access to hear and see you. In the box that then pops up you will enter your name and then wait for your doctor to join you) Louis Loera DO [Doctor of Osteopathic Medicine] - 08/13/20 1:00 pm Patient Instructions/Handouts: Coronavirus Disease 2019 (COVID-19) Discharge Disposition: HOME SELF-CARE
== END 2020-07-15 14:20 | disposition home or self-care (01) | DRG 177 ==
LOC: EC 15:28 → 4SSUR 20:06
PROVIDERS: ADMIT Internal Medicine; ATTEND Internal Medicine
PROC: XW033E5 Introduction of Remdesivir Anti-infective into Peripheral Vein, Percutaneous Approach, New Technology Group 5 (ICD-10-PCS; principal; 2020-07-07)
PROC: 5A0955A Assistance with Respiratory Ventilation, Greater than 96 Consecutive Hours, High Flow/Velocity Cannula (ICD-10-PCS; 2020-07-07)
PROC: XW033H5 Introduction of Tocilizumab into Peripheral Vein, Percutaneous Approach, New Technology Group 5 (ICD-10-PCS; 2020-07-08)
DX: U07.1 COVID-19 (principal); J12.82 Pneumonia due to coronavirus disease 2019; J96.01 Acute respiratory failure with hypoxia; I47.1 Supraventricular tachycardia; D72.810 Lymphocytopenia; E86.0 Dehydration; H35.30 Unspecified macular degeneration; Z79.899 Other long term (current) drug therapy; Z98.51 Tubal ligation status; Z85.3 Personal history of malignant neoplasm of breast; Z92.3 Personal history of irradiation; Z88.8 Allergy status to other drugs, medicaments and biological substances; Z87.2 Personal history of diseases of the skin and subcutaneous tissue
CPT/HCPCS: 36415; 71045; 80048; 80053; 82550; 82728; 83605; 83615; 83735; 84145; 85025; 85379; 85610; 85730; 86140; 87635; 93005; 94760; 96365; 96366; 99285

== ENCOUNTER → 2020-09-11 | Outpatient (CLI) | payer MEDICARE ==
--- NOTE | 2020-09-11 10:51 | MM ---
Reason for exam: additional evaluation requested from prior study. Last mammogram was performed 7 months ago. History: Patient is postmenopausal, has history of breast cancer at age 73, and has history of high-risk lesion on a previous biopsy at age 73. Malignant MG pre op loc each addl RT of the right breast, October 24, 2018. High risk MG pre op needle loc LT of the left breast, October 24, 2018. Lumpectomy of the right breast, October 24, 2018. High risk MR breast biopsy w/vad LEFT of the left breast, October 10, 2018. Malignant US biopsy breast VAD RT of the right breast, August 22, 2018. Took hormonal contraceptives for 5 years. Physical Findings: Nurse did not find any significant physical abnormalities on exam. MG 3D Diag Mammo W/Cad DESIREE Bilateral CC and MLO view(s) were taken. Prior study comparison: February 02, 2020, right breast MG 3d diag mammo w/cad RT. August 02, 2019, bilateral MG 3d diag mammo w/cad DESIREE. The breast tissue is heterogeneously dense. This may lower the sensitivity of mammography. Right lumpectomy and radiation change, stable. These results were verbally communicated with the patient and result sheet given to the patient on 09/11/20. ASSESSMENT: Probably benign, BI-RAD 3 RECOMMENDATION: Follow-up diagnostic mammogram of the right breast in 6 months.
== END | disposition home or self-care (01) ==
LOC: RADMAMWWP 09:35
PROVIDERS: ATTEND Surgery
DX: R92.2 Inconclusive mammogram (principal); Z78.0 Asymptomatic menopausal state; Z85.3 Personal history of malignant neoplasm of breast
CPT/HCPCS: 77066; G0279; 77062

== ENCOUNTER → 2021-01-28 | Outpatient (CLI) | payer MEDICARE ==
[2021-01-28 09:32] LABS: HCT 45.3 % (34.0-46.0); HGB 14.6 gm/dL (11.4-16.0); MCH 28.8 pg (25.0-35.0); MCHC 32.2 g/dL (31.0-37.0); MCV 89.3 fL (80.0-100.0); Mean Platelet Volume 7.7; Platelet Count 243 k/uL (150-450); RBC 5.07 m/uL (3.80-5.40); RDW 15.9 % (11.5-15.5); WBC 7.6 k/uL (3.8-10.6)
[2021-01-28 09:33] LABS: Appearance,Urine Clear (Clear); Bilirubin,Urine Negative (Negative); Blood,Urine Negative (Negative); Color,Urine Yellow; Glucose,Urine (UA) Negative (Negative); Ketones,Urine Negative (Negative); Leukocyte Esterase,Urine Trace (Negative); Mucus,Urine Rare /hpf; Nitrite,Urine Negative (Negative); PH, Urine 5.5 (5.0-8.0); Protein,Urine Negative (Negative); Urobilinogen,Urine <2.0 mg/dL (<2.0); WBC,Urine 1 /hpf (0-5)
[2021-01-28 09:41] LABS: INR 0.9 (<1.2); Partial Thromboplastin Time 22.1 sec (22.0-30.0)
[2021-01-28 09:59] LABS: Calcium 9.5 mg/dL (8.4-10.2); Potassium 4.5 mmol/L (3.5-5.1); Total Bilirubin 0.4 mg/dL (0.2-1.3); Total Protein 6.8 g/dL (6.3-8.2)
== END | disposition home or self-care (01) ==
LOC: LABPAT 09:04
PROVIDERS: ATTEND Orthopaedic Surgery
DX: Z01.812 Encounter for preprocedural laboratory examination (principal); M17.12 Unilateral primary osteoarthritis, left knee
CPT/HCPCS: 36415; 80053; 81001; 85027; 85610; 85730; 87070

== ENCOUNTER 2021-02-24 05:32 | Day surgery (SDC) | payer MEDICARE ==
[2021-02-19 14:12] VITALS: BMI 36.3
[~2021-02-24 05:32] MED LIST changes: +ACETAMINOPHEN TAB 500 MG TAB PO PRN; -DEXAMETHASONE SOD PHOSPHATE 10 MG/ML 1 ML VIAL IV ONE; +GABAPENTIN 300 MG CAP PO PRN; -LACTATED RINGERS 1,000 ML IV SCH; -LIDOCAINE 1% 20 ML VIAL (10MG/ML) FOR IV START INTRADERMA PRN; -ONDANSETRON 4 MG/2 ML VIAL IVP ONE; -Pre Op ABX Message 1 EACH MISC MISCELLANE ONE; +ROPIVACAINE/EPI/CLONIDINE/KET 50 ML SYRINGE MISCELLANE PRN; +TRANEXAMIC ACID 1,000 MG in SODIUM CHLORIDE 0.9% 100 ML IVPB PRN
[2021-02-24] MEDS ORDERED: LACTATED RINGERS 1,000 ML IV SCH (05:40)
[2021-02-24] MEDS ORDERED: DEXAMETHASONE SOD PHOSPHATE 4 MG/ML 1 ML VIAL IV ONE (05:40)
[2021-02-24] MEDS ORDERED: MIDAZOLAM 2 MG/2 ML VIAL IV PRN (05:40)
[2021-02-24] MEDS: MELOXICAM 7.5 MG TAB PO PRN ×2 (06:00→06:32)
[2021-02-24] MEDS ORDERED: fentaNYL (PF) 50 MCG/ML 2 ML AMP IV ONE (06:44)
[2021-02-24] MEDS ORDERED: ROCURONIUM 10 MG/ML (5 ML VIAL) IV ONE (06:56)
[2021-02-24] MEDS ORDERED: GLYCOPYRROLATE 0.2 MG/ML 2 ML VIAL ONE (06:56)
[2021-02-24] MEDS ORDERED: SODIUM CHLORIDE 0.9% 100 ML BAG ONE (06:56)
[2021-02-24] MEDS ORDERED: ROPIVACAINE 5 MG/ML 30 ML VIAL ONE (06:56)
[2021-02-24] MEDS ORDERED: fentaNYL (PF) 50 MCG/ML 2 ML AMP ONE (06:56)
[2021-02-24] MEDS ORDERED: HYDROmorphone (PF) 1 MG/ML ONE (06:56)
[2021-02-24] MEDS ORDERED: LIDOCAINE 1% INJ 10MG/ML (20 ML MDV) ONE (06:56)
[2021-02-24] MEDS ORDERED: NEOSTIGMINE 1 MG/ML 10 ML VIAL ONE (06:56)
[2021-02-24] MEDS ORDERED: SODIUM CHLORIDE 0.9% (PF) 10 ML VIAL ONE (06:56)
[2021-02-24] MEDS ORDERED: TRANEXAMIC ACID 1,000 MG/10 ML VIAL ONE (06:56)
[2021-02-24] MEDS ORDERED: SUCCINYLCHOLINE CHLORIDE 100 MG/5 ML SYR IV ONE (06:56)
[2021-02-24] MEDS ORDERED: PROPOFOL 10 MG/ML 20 ML VIAL IV ONE (06:56)
[2021-02-24] MEDS ORDERED: HYDROmorphone 0.5 MG/0.5 ML SYRINGE IVP PRN ×3 (07:00→07:55)
[2021-02-24] MEDS ORDERED: ceFAZolin 1,000 MG in SODIUM CHLORIDE 0.9% 1,000 ML IRRIGATION ONE (07:03)
[2021-02-24] MEDS ORDERED: HYDROmorphone 0.2 MG/1 ML SYRINGE IVP PRN (07:55)
[2021-02-24] MEDS ORDERED: NALOXONE 0.4 MG/ML 1 ML VIAL IV PRN (07:55)
[2021-02-24] MEDS ORDERED: HYDROcodone/APAP 7.5-325MG 1 EACH TAB PO PRN ×2 (07:56)
[2021-02-24] MEDS ORDERED: SODIUM CHLORIDE 0.9% 1,000 ML IV SCH (08:00)
--- NOTE | 2021-02-24 08:15 | P.OP ---
Date of Procedure: 02/24/21 Preoperative Diagnosis: Severe osteoarthritis left knee Postoperative Diagnosis: Severe osteoarthritis left knee Procedure(s) Performed: Left total knee arthroplasty Implants: Sae[employer] Nephew Journey II CR Oxinium cruciate retaining femoral component size 5, left [employer] Journey nonporous tibial baseplate size 3, left [employer] Journey II, XLPE Deep Dished articular insert, size 11 mm, Size 3-4, left [employer] Journey Kusum II resurfacing patellar component, oval, 29 mm All components were cemented using Palacos R bone cement The articulation is Oxinium on polyethylene Anesthesia: VIV Surgeon: Davis Issa Sap Gatherer #1: Preeti Parmar Estimated Blood Loss (ml): 30 Pathology: other (Bone and cartilage) Condition: stable Disposition: PACU Indications for Procedure: After failure of conservative treatment we discussed the surgical and nonsurgical treatment options at length. Patient wishes to proceed with a total knee arthroplasty. Complications specific to this procedure were discussed at length, including but not limited to infection, bleeding, stiffness, and nerve injury. Covid-19 was also discussed at length with the patient, and they are aware of the current policies and procedures. The patient was given the option of delaying surgery, but they elect to proceed knowing these risks. Patient is aware of all these complications and informed consent was obtained Operative Findings: The operative findings are consistent with severe osteoarthritis of the left knee Description of Procedure: Patient was seen in the preoperative area and the consent was reviewed and the operative site was marked with a skin marker. The patient verified the procedure and the operative site. An adductor canal pain catheter and an iPACK block was placed by anesthesia in the preoperative area. The patient was then brought to the operating room and given preoperative antibiotics intravenously. A gram of transexamic acid was given intravenously. A spinal anesthetic was administered by the anesthesia department. A tourniquet was placed on the upper thigh and the lower extremity was prepped with chlorhexidine and draped in usual sterile fashion. A universal timeout was then performed which confirmed the patient's name, surgical site, ALLERGIES, and consent. The lower extremity was then exsanguinated and tourniquet was inflated to 250 mmHg. A standard anterior midline approach to the knee was performed. The skin and subcutaneous tissue were sharply dissected down to the patellar tendon. A medial parapatellar arthrotomy was then performed. The knee was then extended, the patellar was everted, and the knee was again flexed. The infra-patellar fat pad was removed in order to enhance exposure. The anterior horns of both menisci were excised, and a release was performed to the posterior medial aspect of the knee. On gross visual inspection, there was complete loss of articular cartilage in the medial and patellofemoral joint spaces. There was also significant cartilage damage in the lateral compartment. There were multiple periarticular osteophytes globally about the knee which were then removed with a Ronguer. The femoral canal was then opened with the 9.5 mm intramedullary drill. The 8 mm intramedullary khalif was then inserted into the femoral canal with the distal femoral cutting guide set for 5 of valgus. The distal femoral cutting block was then pinned in place. The intramedullary khalif was then removed, and the distal femur was then cut. The cutting block was then removed and the cut was checked for symmetry. The resected bone was then measured to confirm the appropriate distal femoral resection. Next, the sizing guide was then placed and set for 3 external rotation based off of the epicondylar axis and Whitesides line. Pins were then placed and the drill holes, and the femur was sized with the sizing stylus. The pins were then removed, and the sizing guide was then removed. The spikes of the femoral block was then placed into the predrilled holes, and malleted into place. Two 45 mm pins were then placed into the fixation holes on the cutting block. An lou wing was then used to ensure there would be no notching with the anterior cut. The anterior condyles were cut without notching. The anterior chord cut was then performed, followed by the posterior cut, posterior chamfer cut, and the anterior chamfer cut. The collateral ligaments were protected during the entire process. The cutting block was then removed. Any remaining bone and osteophytes were removed from the femur with a Rominger. The femoral canal was plugged with autologous bone. Attention was then directed to the tibia. The remaining ACL was removed with a Ronguer, and the tibia was then gently subluxed forward with a large bent knee retractor. Any remaining menisci were excised. The posterior lateral corner was cauterized in order to coagulate the lateral geniculate artery. The extra medullary tibial cutting guide was then placed, set for the appropriate rotation, slope, and depth of resection. The proximal tibia cutting guide was then pinned in place. Proximal tibia was then cut and sized. The femoral trial was placed. A narrow saw blade was then used to remove the anterior intracondylar femoral bone. The CR notch trial was then placed. The tibial trial was placed with the appropriate-sized insert. The knee was able to fully extend and flex to 130 and was stable throughout all range of motion. The knee was then extended and the patella was everted. Patella was then measured, and then using an osteotomy guide, the patella was cut at the appropriate level. The patella was then measured and drilled and the patella trial was then placed. The knee was then taken through range of motion with the patella trial and the patella tracked normally using the no thumbs technique.. The knee was then extended patella trial was then removed and the patella was everted. Knee was then flexed and lug holes were drilled through the femoral trial and the femoral trial was then removed. The tibial was then re-exposed, and the tibial broach guide was then pinned in place after it was set for the appropriate rotation to allow for the most coverage without overhang. The tibia was then reamed and broached. The cut surfaces of bone were then irrigated with pulsatile lavage. The knee was also irrigated with Irrisept solution. The components were then opened, the cement was mixed, and the components were then cemented in place. The cement was allowed to harden with the knee in full extension. The tourniquet was released, and hemostasis was obtained. A second gram of transexamic acid was given intravenously. The knee was again irrigated. The knee was again taken through range of motion and found to be stable throughout all range of motion of 0-130, and the patella tracked normally. The fascia was then closed with 0 Vicryl followed by #2 strata fix suture. The subcutaneous tissue was closed with 3-0 Vicryl and 3-0 strata fix. Exofin glue was used for the skin and placed with the knee in flexion. After the glue had dried, and Optafoam silver impregnated dressing was applied. The patient was then transferred to recovery room in stable condition. The medical receptionist medical assistant MECHELLE Talbot was required due the complexity surgery and the need for a skilled residential living assistant. She assisted in positioning, draping, retraction, and closure of the wound.
[2021-02-24] MEDS ORDERED: LACTATED RINGERS 1,000 ML IV ONE (08:28)
[2021-02-24 09:02] VITALS: TEMP 96.9
[2021-02-24] MEDS ORDERED: ROPIVACAINE 0.2%-NS ON-Q PUMP 1,090 MG, EMPTY PAIN BALL 1 EACH MISCELLANE PRN (09:06)
--- NOTE | 2021-02-24 09:56 | XR ---
EXAMINATION TYPE: XR knee limited LT DATE OF EXAM: 02/24/2021 COMPARISON: NONE TECHNIQUE: Two views submitted HISTORY: Post op FINDINGS: There is a prosthetic knee in near anatomic alignment. There is soft tissue edema and emphysema. IMPRESSION: 1. Postoperative change. Appears in near-anatomic alignment
[2021-02-24 10:06] VITALS: RESP 16
--- NOTE | 2021-02-24 10:40 | P.ANPRN ---
Procedure Note - Anesthesia - Nerve Block Performed Left Adductor Canal Infusion Time Out Performed: Yes (643) Date of Procedure: 02/24/21 Procedure Start Time: 06:44 Procedure Stop Time: 06:49 Location of Patient: PreOp Indication: Acute Post-Operative Pain, Requested by Surgeon Specifically requested for management of pain by DrStefanie: Davis Issa Sedation Type: Sedate with meaningful contact maintained Preparation: Sterile Prep, Sterile Dressing Position: Supine Catheter Depth at Skin (cm): 9 Catheter: Indwelling Needle Types: Pajunk Needle Gauge: 21 Ultrasound used to visualize needle placement: Yes Ultrasound used to observe medication spread: Yes Injectate: 0.5% Ropivacaine (see comment for volume) (15cc + 5cc nacl pf) Blood Aspirated: No Pain Paresthesia on Injection Noted: No Resistance on Injection: Normal Image Stored and Saved: Yes Events: Uneventful and Well Tolerated Left iPack Single Time Out Performed: Yes (643) Date of Procedure: 02/24/21 Procedure Start Time: 06:50 Procedure Stop Time: 06:53 Location of Patient: Phase I Indication: Acute Post-Operative Pain, Requested by Surgeon Specifically requested for management of pain by DrStefanie: Davis Issa Sedation Type: Sedate with meaningful contact maintained Preparation: Sterile Prep Position: Supine Catheter: None Needle Types: Pajunk Needle Gauge: 21 Ultrasound used to visualize needle placement: Yes Ultrasound used to observe medication spread: Yes Injectate: 0.5% Ropivacaine (see comment for volume) (15cc + 5cc nacl pf) Blood Aspirated: No Pain Paresthesia on Injection Noted: No Resistance on Injection: Normal Image Stored and Saved: Yes Events: Uneventful and Well Tolerated
[2021-02-24 14:01] VITALS: BP 135/77; PULSE 79
== END 2021-02-24 14:51 | disposition home health service (06) ==
LOC: OR 05:32
PROVIDERS: ATTEND Orthopaedic Surgery
DX: M17.12 Unilateral primary osteoarthritis, left knee (principal)
CPT/HCPCS: 27447; 97116; 97110; 97161; 64999; 64448; 76942; 73560; C1713; C1776; J2250; J1100; J2710; J0690 ×2; J2001; J3010; J1170 ×2; J2795 ×2; J0330; J2704; 88305; 88311

== ENCOUNTER → 2021-04-09 | Outpatient (CLI) | payer MEDICARE ==
--- NOTE | 2021-04-09 12:03 | MM ---
Reason for exam: follow-up at short interval from prior study. Last mammogram was performed 7 months ago. History: Patient is postmenopausal, has history of breast cancer at age 73, and has history of high-risk lesion on a previous biopsy at age 73. Malignant MG pre op loc each addl RT of the right breast, October 24, 2018. High risk MG pre op needle loc LT of the left breast, October 24, 2018. Lumpectomy of the right breast, October 24, 2018. High risk MR breast biopsy w/vad LEFT of the left breast, October 10, 2018. Malignant US biopsy breast VAD RT of the right breast, August 22, 2018. Took hormonal contraceptives for 5 years. Took antineoplastic for 6 months. Physical Findings: Nurse Summary: 1 x 1.5cm nodule in the right breast at medial nipple (nurse ts). MG 3D Diag Mammo W/Cad RT CC and MLO view(s) were taken of the right breast. Prior study comparison: September 11, 2020, bilateral MG 3d diag mammo w/cad DESIREE. February 02, 2020, right breast MG 3d diag mammo w/cad RT. There are scattered fibroglandular densities. Finding: There are typically benign diffuse/scattered calcifications in the right breast. No significant changes in finding since September 11, 2020 and February 02, 2020. These results were verbally communicated with the patient and result sheet given to the patient on 04/09/21. ASSESSMENT: Benign, BI-RAD 2 RECOMMENDATION: Follow-up diagnostic mammogram of both breasts in 4 months.
== END | disposition home or self-care (01) ==
LOC: RADMAMWWP 10:43
PROVIDERS: ATTEND Surgery
DX: R92.8 Other abnormal and inconclusive findings on diagnostic imaging of breast (principal)
CPT/HCPCS: 77065; G0279; 77061

== ENCOUNTER → 2021-09-10 | Outpatient (CLI) | payer MEDICARE ==
--- NOTE | 2021-09-10 12:06 | MM ---
Reason for Exam: Follow-up at short interval from prior study. Last screening mammogram was performed 12 month(s) ago. Patient History: Menarche at age 12. First Full-Term at age 23. Postmenopausal. Breast cancer, right, age 73. Patient used Hormonal Contraceptives for 5 years. 10/24/2018, Lumpectomy on the Right side. 10/24/2018, Malignant Core Biopsy on the right side. 10/24/2018, High risk Core Biopsy on the left side. 10/10/2018, High risk Core Biopsy on the left side. 08/22/2018, Malignant Core Biopsy on the right side. Prior Study Comparison: 08/02/2019 Bilateral Diagnostic Mammogram, [facility]. 02/02/2020 Right Diagnostic Mammogram, [facility]. 09/11/2020 Bilateral Diagnostic Mammogram, [facility]. 04/09/2021 Right Diagnostic Mammogram, [facility]. Tissue Density: There are scattered fibroglandular densities. Findings: Analyzed By CAD. There is skin thickening on the right with evidence of previous surgery and benign-appearing calcifications. There is a new grouped calcifications in the central upper aspect of the left breast. Overall Assessment: Suspicious, BI-RAD 4 Management: Stereotactic Core Biopsy of the left breast. A clinical breast exam by your physician is recommended on an annual basis and results should be correlated with mammographic findings. This exam should not preclude additional follow-up of suspicious palpable abnormalities. Results were given to the patient verbally at the time of exam. Electronically signed and approved by: Guero Griffin M.D. Radiologis
== END | disposition home or self-care (01) ==
LOC: RADMAMWWP 10:54
PROVIDERS: ATTEND Internal Medicine Hematology & Oncology
DX: C50.211 Malignant neoplasm of upper-inner quadrant of right female breast (principal)
CPT/HCPCS: 77066; G0279; 77062

== ENCOUNTER → 2021-09-17 | Day surgery (SDC) | payer MEDICARE ==
[2021-09-17 12:59] VITALS: BP 143/80; PULSE 73; RESP 12; TEMP 98.3
--- NOTE | 2021-09-24 08:32 | MM ---
Procedure Description: Discontinued, unable to find calcifications, patie Findings: The procedure of stereotactic guided core biopsy was explained to the patient. Benefits, alternatives, and risks were discussed. An informed consent was then obtained. Despite multiple attempts at localizing the calcifications within the left breast all proved unsuccessful. This was discussed with the patient and stereotactic core biopsy was discontinued. Recommendation is for needle localization with open biopsy. Impression: Discontinued stereotactic core biopsy of the left breast. Recommendation is for needle localization with open biopsy. Management: Needle Localization of the left breast. Electronically signed and approved by: Reuben Angulo M.D. Radiologis
== END ==
LOC: RADMAMWWP 12:28
PROVIDERS: ATTEND Internal Medicine Hematology & Oncology
DX: R92.8 Other abnormal and inconclusive findings on diagnostic imaging of breast (principal); Z53.8 Procedure and treatment not carried out for other reasons

== ENCOUNTER 2021-10-31 06:44 | Day surgery (SDC) | payer MEDICARE ==
[~2021-10-31 06:44] MED LIST changes: +DEXAMETHASONE SOD PHOSPHATE 4 MG/ML 1 ML VIAL IV ONE; -GABAPENTIN 300 MG CAP PO PRN; +HEPARIN SODIUM,PORCINE/PF 5,000 UNIT/0.5 ML SYRINGE SQ PRN; +HYDROmorphone 0.5 MG/0.5 ML SYRINGE IVP PRN; +LIDOCAINE 1% (10MG/ML) FOR IV START INTRADERMA PRN; +Pre Op ABX Message 1 EACH MISC MISCELLANE ONE; -ROPIVACAINE/EPI/CLONIDINE/KET 50 ML SYRINGE MISCELLANE PRN; -TRANEXAMIC ACID 1,000 MG in SODIUM CHLORIDE 0.9% 100 ML IVPB PRN
[2021-10-31 07:04] VITALS: RESP 16
[2021-10-31] MEDS ORDERED: ALPRAZolam 0.25 MG TAB ONE (07:15)
[2021-10-31] MEDS: LACTATED RINGERS 1,000 ML IV SCH ×2 (07:19→09:11)
[2021-10-31] MEDS ORDERED: ALPRAZolam 0.25 MG TAB PO ONE (07:32)
--- NOTE | 2021-10-31 07:42 | P.GSHP ---
History of Present Illness H&P Date: 10/31/21 Chief Complaint: Abnormal left mammogram 76-year-old female with recent mammogram showing calcifications left breast. Patient personal history of previous right breast cancer. They were unable to image these on standard 2-D films. Therefore wire localization or 3-D core b iopsy was advised. Patient is adjusted and staying locally for the procedure. Past Medical History Past Medical History: Cancer, Eye Disorder, Pneumonia, Supraventricular Tachycardia (SVT) Additional Past Medical History / Comment(s): Right breast invasive lobular carcinoma, LUMPECTOMY AND RADIATION. Left breast BX UNDER MRI. MACULAR degeneration. COVID 06/30 (HAD PNEUMONIA AND WENT HOME ON ). History of Any Multi-Drug Resistant Organisms: None Reported Past Surgical History: Tubal Ligation Additional Past Surgical History / Comment(s): lt knee replacement AND KNEE MANIPULATION. breast biopsy right breast +ve for CANCER. BREAST CYST ASP- BENIGN UNSURE WHICH BREAST, rt lumpectomy, bilat cataract surgery Past Anesthesia/Blood Transfusion Reactions: No Reported Reaction Past Psychological History: No Psychological Hx Reported Smoking Status: Never smoker Past Alcohol Use History: None Reported Past Drug Use History: None Reported - Past Family History Mother Family Medical History: Diabetes Mellitus Medications and Allergies Home Medications Medication Instructions Recorded Confirmed Type Diltiazem Cd [Cardizem CD] 120 mg PO QAM 08/11/18 10/31/21 History Multivitamins, Thera [Multivitamin 1 tab PO DAILY 08/11/18 10/31/21 History (formulary)] Vitamin B Complex 1 cap PO DAILY 07/06/20 10/31/21 History Hydrocodone/Acetaminophen 0.5 tab PO BID PRN 10/30/21 10/31/21 History [Hydrocodone/Acetaminophen 7.5-325] Allergies Allergy/AdvReac Type Severity Reaction Status Date / Time ondansetron [From Zofran] Allergy Face/Skin Verified 10/31/21 06:57 burning Surgical - Exam Vital Signs Temp Pulse Resp BP Pulse Ox 98.1 F 80 16 161/71 94 L 10/31/21 07:02 10/31/21 07:02 10/31/21 07:02 10/31/21 07:02 10/31/21 07:02 Physical exam: General: Well-developed, well-nourished HEENT: Normocephalic, sclerae nonicteric Right breast: No masses, no adenopathy, prior scars noted Left breast: No masses, no adenopathy Abdomen: Nontender, nondistended Extremities: No edema Neuro: Alert and oriented Assessment and Plan (1) Abnormal mammogram Narrative/Plan: Will proceed with Wire localization left breast biopsy at this time. Risks of bleeding, infection, scarring, possible need for further surgery reviewed. She understands and wishes to proceed. Current Visit: Yes Status: Acute Code(s): R92.8 - OTH ABN AND INCONCLUSIVE FINDINGS ON DX IMAGING OF BREAST SNOMED Code(s): 834438277
[2021-10-31] MEDS ORDERED: LIDOCAINE 1% INJ 10MG/ML (20 ML MDV) SQ ONE (08:34)
[2021-10-31] MEDS ORDERED: PROPOFOL 10 MG/ML 20 ML VIAL IV ONE (09:10)
[2021-10-31] MEDS ORDERED: MIDAZOLAM 2 MG/2 ML VIAL ONE (09:10)
[2021-10-31] MEDS ORDERED: fentaNYL (PF) 50 MCG/ML 2 ML AMP ONE (09:10)
[2021-10-31] MEDS ORDERED: ePHEDrine 50 MG/ML 1 ML VIAL ONE (09:10)
[2021-10-31] MEDS ORDERED: BUPIVACAIN-EPI 0.25%-1:200,000 30 ML VIAL SQ ONE ×2 (09:25)
[2021-10-31] MEDS ORDERED: HYDROcodone/APAP 5-325MG 1 EACH TAB PO PRN (09:51)
[2021-10-31] MEDS ORDERED: NALOXONE 0.4 MG/ML 1 ML VIAL IV PRN (09:51)
--- NOTE | 2021-10-31 09:52 | P.OP ---
Date of Procedure: 10/31/21 Procedure(s) Performed: PREOPERATIVE DIAGNOSIS: Abnormal left mammogram POSTOPERATIVE DIAGNOSIS: Same PROCEDURE: Left Breast wire localization biopsy SURGEON: Jayden EBL: Minimal ANESTHESIA: General plus local COMPLICATIONS: None OPERATIVE PROCEDURE: Patient was placed on the operating room table in the supi ne position. The patient's breast was prepped and draped in usual sterile fashion. A curvilinear incision was made adjacent to the wire entrance site. I followed the wire down into the breast tissue. The breast tissue around the shaft of the wire was fully excised using electrocautery. The specimen was sent for specimen radiogram. The calcifications were present within the specimen. The subcutaneous tissues were inspected. No bleeding was seen. The subcutaneous tissues were closed using 3-0 Vicryl sutures. The skin was closed using a running 4-0 Monocryl stitch. Skin glue and sterile dressings were applied. DISPOSITION: Stable to recovery room
[2021-10-31 10:16] VITALS: TEMP 97.1
[2021-10-31 11:22] VITALS: BP 132/61; PULSE 81
--- NOTE | 2021-11-06 12:38 | MM ---
Prior Study Comparison: 09/11/2020 Bilateral Diagnostic Mammogram, [facility]. 04/09/2021 Right Diagnostic Mammogram, [facility]. 09/10/2021 Bilateral MG 3D diag mammo w/cad DESIREE, [facility]. Pathology Description: Approach: Lateral to Medial Needle Type: 9 cm Kopan. EXAMINATION TYPE: MG pre op needle loc LT, MG surgical specimen LT DATE OF EXAM: 10/31/2021 9:12 AM COMPARISON: NONE HISTORY: Microcalcifications left breast Informed consent was obtained and all the patient's questions were answered. The calcifications in question where localized mammographically. The standard sterile technique was utilized, as well as appropriate local anesthesia with 1% Lidocaine. Localization needle followed by placement of a guidewire was performed under mammographic guidance. Verification images demonstrate appropriate deployment of the guidewire. The patient tolerated the procedure well and left the department in stable condition. Specimen radiograph demonstrates the calcifications in question to reside within the specimen. IMPRESSION: Successful needle localization and open biopsy left breast with pathology results pending. Pathology Results: Result: Benign, Fibrocystic change. LEFT BREAST, NEEDLE LOCALIZATION EXCISION: Benign breast with fibrocystic changes including calcifications. Findings: EXAMINATION TYPE: MG pre op needle loc LT, MG surgical specimen LT DATE OF EXAM: 10/31/2021 9:12 AM COMPARISON: NONE HISTORY: Microcalcifications left breast Informed consent was obtained and all the patient's questions were answered. The calcifications in question where localized mammographically. The standard sterile technique was utilized, as well as appropriate local anesthesia with 1% Lidocaine. Localization needle followed by placement of a guidewire was performed under mammographic guidance. Verification images demonstrate appropriate deployment of the guidewire. The patient tolerated the procedure well and left the department in stable condition. Specimen radiograph demonstrates the calcifications in question to reside within the specimen. IMPRESSION: Successful needle localization and open biopsy left breast with pathology results pending. Overall Assessment: Benign Management: Diagnostic Mammogram of the left breast in 6 months. Electronically signed and approved by: Reuben Angulo M.D. Radiologis
--- NOTE | 2021-11-06 12:38 | MM ---
Prior Study Comparison: 09/11/2020 Bilateral Diagnostic Mammogram, [facility]. 04/09/2021 Right Diagnostic Mammogram, [facility]. 09/10/2021 Bilateral MG 3D diag mammo w/cad DESIREE, [facility]. Pathology Description: Approach: Lateral to Medial Needle Type: 9 cm Kopan. EXAMINATION TYPE: MG pre op needle loc LT, MG surgical specimen LT DATE OF EXAM: 10/31/2021 9:12 AM COMPARISON: NONE HISTORY: Microcalcifications left breast Informed consent was obtained and all the patient's questions were answered. The calcifications in question where localized mammographically. The standard sterile technique was utilized, as well as appropriate local anesthesia with 1% Lidocaine. Localization needle followed by placement of a guidewire was performed under mammographic guidance. Verification images demonstrate appropriate deployment of the guidewire. The patient tolerated the procedure well and left the department in stable condition. Specimen radiograph demonstrates the calcifications in question to reside within the specimen. IMPRESSION: Successful needle localization and open biopsy left breast with pathology results pending. Pathology Results: Result: Benign, Fibrocystic change. LEFT BREAST, NEEDLE LOCALIZATION EXCISION: Benign breast with fibrocystic changes including calcifications. Findings: EXAMINATION TYPE: MG pre op needle loc LT, MG surgical specimen LT DATE OF EXAM: 10/31/2021 9:12 AM COMPARISON: NONE HISTORY: Microcalcifications left breast Informed consent was obtained and all the patient's questions were answered. The calcifications in question where localized mammographically. The standard sterile technique was utilized, as well as appropriate local anesthesia with 1% Lidocaine. Localization needle followed by placement of a guidewire was performed under mammographic guidance. Verification images demonstrate appropriate deployment of the guidewire. The patient tolerated the procedure well and left the department in stable condition. Specimen radiograph demonstrates the calcifications in question to reside within the specimen. IMPRESSION: Successful needle localization and open biopsy left breast with pathology results pending. Overall Assessment: Benign Management: Diagnostic Mammogram of the left breast in 6 months. Electronically signed and approved by: Reuben Angulo M.D. Radiologis
== END 2021-10-31 11:39 | disposition home or self-care (01) ==
LOC: OR 06:44
PROVIDERS: ATTEND Surgery
DX: N60.12 Diffuse cystic mastopathy of left breast (principal); R92.0 Mammographic microcalcification found on diagnostic imaging of breast; C50.911 Malignant neoplasm of unspecified site of right female breast; Z83.3 Family history of diabetes mellitus; Z88.8 Allergy status to other drugs, medicaments and biological substances; M19.90 Unspecified osteoarthritis, unspecified site; H35.30 Unspecified macular degeneration; Z98.51 Tubal ligation status; Z98.42 Cataract extraction status, left eye; Z98.41 Cataract extraction status, right eye; Z79.899 Other long term (current) drug therapy
CPT/HCPCS: 88307; 76098; 19281; C1819; J2250; J1100; J2001; J3010; J2704; J1170; J1790; J1644

== ENCOUNTER → 2022-10-15 | Outpatient (CLI) | payer MEDICARE ==
--- NOTE | 2022-10-15 13:28 | MM ---
Reason for Exam: Clinical finding. Last mammogram was performed 1 year(s) and 1 month(s) ago. Indicated Problems: Nipple abnormality of the right side for 2 Month(s). Patient History: Menarche at age 12. First Full-Term at age 23. Postmenopausal. Breast cancer, right, age 73. Previous chest radiation therapy at age 73. Patient used Hormonal Contraceptives for 5 years. 10/31/2021, Benign MG pre op needle loc LT on the left side. 10/24/2018, Lumpectomy on the Right side. 10/24/2018, Malignant Core Biopsy on the right side. 10/24/2018, High risk Core Biopsy on the left side. 10/10/2018, High risk Core Biopsy on the left side. 08/22/2018, Malignant Core Biopsy on the right side. 09/17/2021, MG discontinued stereo core LT on the left side. Prior Study Comparison: 07/28/2018 Bilateral Screening Mammogram, [facility]. 08/02/2019 Bilateral Diagnostic Mammogram, [facility]. 09/10/2021 Bilateral MG 3D diag mammo w/cad DESI[facility], [facility]. Tissue Density: There are scattered fibroglandular densities. Findings: Analyzed By CAD. Benign-appearing calcifications within both breasts. Post treatment changes of the right breast with architectural distortion and skin thickening. No new suspicious group of calcifications within either breast. No new suspicious masses in the right breast. There is increased density at site of prior excisional biopsy. Likely related to postsurgical change. Overall Assessment: Probably benign, BI-RAD 3 Management: Diagnostic Mammogram of the left breast in 6 months. A clinical breast exam by your physician is recommended on an annual basis and results should be correlated with mammographic findings. This exam should not preclude additional follow-up of suspicious palpable abnormalities. Results were given to the patient verbally at the time of exam. Electronically signed and approved by: Yovani Erickson D.O.
== END | disposition home or self-care (01) ==
LOC: RADMAMWWP 12:59
PROVIDERS: ATTEND Surgery
DX: R92.8 Other abnormal and inconclusive findings on diagnostic imaging of breast (principal); Z78.0 Asymptomatic menopausal state; Z85.3 Personal history of malignant neoplasm of breast
CPT/HCPCS: 77066; G0279; 77062

== ENCOUNTER → 2023-06-24 | Outpatient (CLI) | payer MEDICARE ==
--- NOTE | 2023-06-24 13:57 | MM ---
Reason for Exam: Follow-up at short interval from prior study. Last screening mammogram was performed 8 month(s) ago. Patient History: Menarche at age 12. First Full-Term at age 23. Postmenopausal. Breast cancer, right, age 73. Previous chest radiation therapy at age 73. Patient used Hormonal Contraceptives for 5 years. 10/31/2021, Benign MG pre op needle loc LT on the left side. 10/24/2018, Lumpectomy on the Right side. 10/24/2018, Malignant Core Biopsy on the right side. 10/24/2018, High risk Core Biopsy on the left side. 10/10/2018, High risk Core Biopsy on the left side. 08/22/2018, Malignant Core Biopsy on the right side. 09/17/2021, MG discontinued stereo core LT on the left side. Tissue Density: There are scattered areas of fibroglandular density. Findings: Analyzed By CAD. Postsurgical and posttreatment change redemonstrated right breast. Fat necrosis calcifications anteriorly on the right are unchanged. Additional surgical clips in the axilla. On the left, additional postexcisional changes 12:00 middle depth are redemonstrated with area of oil cyst formation. No significant change from prior exams. Overall Assessment: Benign, BI-RAD 2 Management: Screening Mammogram of both breasts in 1 year. . Results were given to the patient verbally at the time of exam. Patient should continue monthly self-breast exams. A clinical breast exam by your physician is recommended on an annual basis. This exam should not preclude additional follow-up of suspicious palpable abnormalities. Electronically signed and approved by: Ivette Wong M.D. Radiologist
== END | disposition home or self-care (01) ==
LOC: RADMAMWWP 10:40
PROVIDERS: ATTEND Surgery
DX: R92.323 Mammographic fibroglandular density, bilateral breasts (principal); Z78.0 Asymptomatic menopausal state; Z85.3 Personal history of malignant neoplasm of breast
CPT/HCPCS: 77066; G0279; 77062

== ENCOUNTER → 2024-07-20 | Outpatient (CLI) | payer MEDICARE ==
--- NOTE | 2024-07-20 15:34 | MM ---
Reason for Exam: Screening (asymptomatic). Last mammogram was performed 1 year(s) and 1 month(s) ago. Patient History: Menarche at age 12. First Full-Term at age 23. Postmenopausal. Breast cancer, right, age 73. Previous chest radiation therapy at age 73. Patient used Hormonal Contraceptives for 5 years. 10/31/2021, Benign MG pre op needle loc LT on the left side. 10/24/2018, Lumpectomy on the Right side. 10/24/2018, Malignant Core Biopsy on the right side. 10/24/2018, High risk Core Biopsy on the left side. 10/10/2018, High risk Core Biopsy on the left side. 08/22/2018, Malignant Core Biopsy on the right side. 09/17/2021, MG discontinued stereo core LT on the left side. Prior Study Comparison: 09/10/2021 Bilateral MG 3D diag mammo w/cad [facility], [facility]. 10/15/2022 Bilateral MG 3D diag mammo w/cad [facility], [facility]. 06/24/2023 Bilateral MG 3D diag mammo w/cad [facility], [facility]. Tissue Density: There are scattered areas of fibroglandular density. Findings: Analyzed By CAD. Postsurgical and posttreatment changes in the right with areas of fat necrosis at the lobectomy site. Surgical clips of the axilla. Area of oral cyst/fat necrosis 12:00 left breast middle depth redemonstrated. A few scattered benign round calcifications are present. No significant change from prior exams. Overall Assessment: Benign, BI-RAD 2 Management: Screening Mammogram of both breasts in 1 year. Patient should continue monthly self-breast exams. A clinical breast exam by your physician is recommended on an annual basis. This exam should not preclude additional follow-up of suspicious palpable abnormalities. [facility], , 07/20/2024 3:31 PM. Electronically signed and approved by: Ivette Wong M.D. Radiologist
== END | disposition home or self-care (01) ==
LOC: RADMAMWWP 09:47
PROVIDERS: ATTEND Internal Medicine Hematology & Oncology
DX: Z12.31 Encounter for screening mammogram for malignant neoplasm of breast (principal); R92.323 Mammographic fibroglandular density, bilateral breasts; R92.1 Mammographic calcification found on diagnostic imaging of breast; C50.211 Malignant neoplasm of upper-inner quadrant of right female breast; M85.9 Disorder of bone density and structure, unspecified; D50.9 Iron deficiency anemia, unspecified; Z71.3 Dietary counseling and surveillance; Z78.0 Asymptomatic menopausal state; Z92.0 Personal history of contraception; Z85.3 Personal history of malignant neoplasm of breast
CPT/HCPCS: 77063; 77067